=== PATIENT | male | born 1930 | race Caucasian/White ===

== ENCOUNTER 2020-09-08 15:46 | Inpatient (IN) ==
--- NOTE | 2020-09-08 16:23 | Emergency Department Note ---
Impression & Plan SOB (shortness of breath), Fluid overload, Pleural effusion, Pedal edema ED Provider Note NAME: JOSELUIS MISTRY AGE: 89 SEX: M : 1930 ARRIVES VIA: Walk-In INFORMANT: [Patient][daughter] ED PROVIDER(S): [Sravan Young MD] CHIEF COMPLAINT: Short of breath HISTORY OF PRESENT ILLNESS: The patient is an 89-year-old male who presents to the ER with 2 weeks of incr easing shortness of breath, he has also noticed increasing edema. About a week ago. His doctor started him on a diuretic and some potassium. This has not helped. His weight has increased. His work of breathing has increased especially with even the smallest amount of exertion. He has had increasing edema of his legs, his scrotum and now his neck and face. The patient saw his doctors office again today, he was referred to the ED. Patient has a history of A. fib and he is on digoxin and Coumadin. He has never had a diagnosis of coronary disease. He has no lung disease, he states he has never had heart failure. In addition to the dyspnea on exertion, the patient cannot lie flat to sleep. REVIEW OF SYSTEMS: See HPI for pertinent positives and negatives. A total of ten systems were reviewed and were otherwise negative. PMHx/PSHx: See Below SOCIAL HISTORY: See Below. PHYSICAL EXAM: GENERAL: Patient is in no acute distress. HEENT: No acute trauma, normocephalic atraumatic, mucous membranes moist, no nasal congestion, no scleral icterus. There is some anterior neck edema noted. NECK: No stridor, no adenopathy, no meningismus, trachea is midline. LUNGS: Diminished breath sounds bilaterally with some occasional crackles at both bases, no obvious wheeze. The patient does seem to speak in shorter sentences but is in no respiratory distress. HEART: No murmurs, somewhat bradycardic rate with an irregular rhythm. ABDOMEN: Soft, nontender, bowel sounds positive, no hernias, no peritonitis. EXTREMITIES: No cyanosis, significant bilateral pedal edema, full range of motion of all the joints without pain or difficulty, no signs for acute trauma. NEUROLOGIC: Oriented x 3, no acute motor or sensory deficits, no focal weakness. SKIN: No rash, no jaundice, no diaphoresis. Groin: He has scrotal and penile edema. No erythema or warmth to suggest infection. DIFFERENTIAL DIAGNOSIS: Reactive airway disease, pneumonia, pneumothorax, COPD, CHF, infection, cardiac ischemia, pulmonary embolism, bronchitis, musculoskeletal, gastrointestinal, as well as other pathologies. EMERGENCY DEPARTMENT COURSE/PROCEDURES: ECG: Indication was shortness of breath. The ECG shows atrial fibrillation with a rate of 61. There are some nonspecific ST changes noted primarily in the inferior and lateral leads. QTC is 601, quite prolonged. There is no ST elevation, no PVCs. Continuous Cardiac Monitoring: An order was placed for continuous cardiac monitoring. The monitor shows a rate of 63 with atrial fibrillation. MEDICAL DECISION MAKING: There is no leukocytosis. A mild anemia was noted. There is a normal platelet count. INR is high at 4.6, he is somewhat over anticoagulated. No renal failure. No significant electrolyte abnormality in need of emergent correction. No worrisome liver enzyme elevation. ECG shows atrial fibrillation, no acute ischemic change. Cardiac enzyme testing x1 is not consistent with acute cardiac injury. BNP is not significantly elevated. Chest film shows bilateral effusions, worse on the left. Digoxin level was therapeutic. Covid testing returned negative. Bilateral lower extremity ultrasound not show any evidence for DVT. Abdominal and pelvis CT did not show any evidence for urinary obstruction, no acute surgical pathology by CT scan. The patient presents with shortness of breath and edema. He was given IV Lasix 40 mg to start his diuresis. The patient is quite fluid overloaded. He has edema of his legs, scrotum, abdominal wall and face/neck. Hospitalization is warranted. I spoke to the patient and case management. I spoke with his daughter. The on- call hospitalist was consulted. Past Med/Surg History Medical History Chronic atrial fibrillation HTN (hypertension) Surgical History No history of previous surgery Family History (Updated 09/08/20 @ 18:46 by Marli Barnes PA-C) Other Family history unknown Social History Smoking Status: Former smoker Second Hand Exposure: No; Do You Dip or Chew Tobacco: No; Tobacco Cessation Education Requested by Patient: No Hx Alcohol Use: No Hx Substance Use: No Preferred Language: Maltese Communication Ability: Impaired Communication Ability Comment: hard of hearing Beliefs That Will Affect Care: None Current Living Situation: Family Current Living Situation Comment: lives with Daughter Marva Feels Safe at Home: Yes Safety Concerns: Feels Safe At This Time Assistive Devices: Cane Allergies Allergies Allergy/AdvReac Type Severity Reaction Status Date / Time amlodipine Allergy Unknown Unknown Verified 09/08/20 20:15 lisinopril AdvReac Mild Cough Verified 09/08/20 20:15 Home Meds Home Medications Medication Instructions Recorded Confirmed amoxicillin-pot clavulanate 1 tab PO Q12 09/08/20 09/08/20 ascorbic acid (vitamin C) [Vitamin 500 mg PO DAILY 09/08/20 09/08/20 C] digoxin 125 mcg PO Q OTHER DAY 09/08/20 09/08/20 digoxin 250 mcg PO Q OTHER DAY 09/08/20 09/08/20 diltiazem HCl 240 mg PO DAILY 09/08/20 09/08/20 furosemide 20 mg PO DAILY 09/08/20 09/08/20 potassium chloride 10 meq PO DAILY 09/08/20 09/08/20 warfarin [Jantoven] 1 mg PO 2XWK 09/08/20 09/08/20 warfarin [Jantoven] 2 mg PO 5XWK 09/08/20 09/08/20 Results & Data (ED) Vital Signs Vital Signs - 24 hr 09/08/20 15:52 09/08/20 16:19 09/08/20 16:22 Temperature 36.4 C L Temperature Source Temporal Artery Scan Pulse Rate 63 55 L 59 L Pulse Rate from SpO2 Sensor 66 59 L Respiratory Rate 18 18 19 Respiratory Effort / Characteristics Non-Labored Respiratory Depth Normal Blood Pressure 132/61 145/68 H Blood Pressure Mean 84 93 Pulse Oximetry 95 94 94 Oxygen Delivery Method Room Air Sepsis Recent Fever Within 48 Hours No Sepsis New/Unexplained Change in Mental Status No Sepsis Action Taken by Nursing No Action Required 09/08/20 16:30 09/08/20 16:33 09/08/20 17:09 Temperature Temperature Source Pulse Rate 63 60 Pulse Rate from SpO2 Sensor 63 57 L Respiratory Rate 17 14 Respiratory Effort / Characteristics Non-Labored Respiratory Depth Blood Pressure 142/85 H Blood Pressure Mean 104 Pulse Oximetry 96 95 Oxygen Delivery Method Sepsis Recent Fever Within 48 Hours Sepsis New/Unexplained Change in Mental Status Sepsis Action Taken by Nursing 09/08/20 17:30 Temperature Temperature Source Pulse Rate 55 L Pulse Rate from SpO2 Sensor 60 Respiratory Rate 14 Respiratory Effort / Characteristics Respiratory Depth Blood Pressure 142/67 H Blood Pressure Mean 92 Pulse Oximetry 95 Oxygen Delivery Method Sepsis Recent Fever Within 48 Hours Sepsis New/Unexplained Change in Mental Status Sepsis Action Taken by Jail Medications Current Medication List: was personally reviewed by me Laboratory Data Attestation: I reviewed the patient's lab results. Result diagrams: 09/08/20 16:24 09/08/20 16:24 Lab Results 09/08/20 09/08/20 09/08/20 Range/Units 16:24 16:24 16:24 WBC 5.73 (4.8-10.8) K/uL RBC 3.30 L (4.7-6.1) M/uL Hgb 10.9 L (14.0-18.0) g/dL Hct 32.5 L (42-52) % MCV 98.5 (80-100) fL MCH 33.0 (25-34) pg MCHC 33.5 (32-36) g/dL RDW Std Deviation 54.4 H (36.4-46.3) fL RDW Coeff of Rylie 15.2 H (11.5-14.5) % Plt Count 215 (130-400) K/uL MPV 9.6 (7.4-10.4) fL Immature Gran % (Auto) 0.2 % Neut % (Auto) 70.5 % Lymph % (Auto) 16.6 % Banner % (Auto) 10.8 % Eos % (Auto) 1.4 % Baso % (Auto) 0.5 % Neut # (Auto) 4.04 (1.4-6.5) K/uL Lymph # (Auto) 0.95 L (1.2-3.4) K/uL Banner # (Auto) 0.62 H (0.11-0.59) K/uL Eos # (Auto) 0.08 (0-0.5) K/uL Baso # (Auto) 0.03 (0-0.2) K/uL Immature Gran # (Auto) 0.01 (0.00-0.02) K/uL PT 41.3 H (9.0-12.0) Seconds INR 4.6 H (0.9-1.1) APTT 43.4 H (21.0-31.0) Seconds PTT Ratio 1.7 Sodium 138 (136-145) mmol/L Potassium 3.9 (3.5-5.1) mmol/L Chloride 108 H (98-107) mmol/L Carbon Dioxide 25 (21-32) mmol/L Anion Gap 5.0 (3-11) BUN 24 H (7-18) mg/dl Creatinine 1.17 (0.6-1.4) mg/dl Est Cr Clr Drug Dosing 43.8 ml/min Est GFR ( Amer) 64.1 Est GFR (Non-Af Amer) 55.3 BUN/Creatinine Ratio 20.3 H (10-20) Glucose 112 H (70-99) mg/dl Calcium 9.4 (8.5-10.1) mg/dl Magnesium 2.1 (1.8-2.4) mg/dl Total Bilirubin 0.3 (0.2-1) mg/dl AST 21 (15-37) U/L ALT 20 (12-78) U/L Alkaline Phosphatase 88 (45-117) U/L Troponin I < 0.015 (0-0.045) ng/ml NT-Pro-B Natriuret Pep 587 (0-1800) pg/ml Total Protein 8.4 H (6.4-8.2) gm/dl Albumin 3.0 L (3.4-5.0) gm/dl Globulin 5.4 H (2.5-4.0) gm/dl Albumin/Globulin Ratio 0.6 L (0.9-2) Digoxin (0.8-2.0) ng/ml COVID-19 Eval Order SARS-CoV-2, RNA, NAAT (NEGATIVE) 09/08/20 09/08/20 09/08/20 Range/Units 16:24 17:29 17:29 WBC (4.8-10.8) K/uL RBC (4.7-6.1) M/uL Hgb (14.0-18.0) g/dL Hct (42-52) % MCV (80-100) fL MCH (25-34) pg MCHC (32-36) g/dL RDW Std Deviation (36.4-46.3) fL RDW Coeff of Rylie (11.5-14.5) % Plt Count (130-400) K/uL MPV (7.4-10.4) fL Immature Gran % (Auto) % Neut % (Auto) % Lymph % (Auto) % Banner % (Auto) % Eos % (Auto) % Baso % (Auto) % Neut # (Auto) (1.4-6.5) K/uL Lymph # (Auto) (1.2-3.4) K/uL Banner # (Auto) (0.11-0.59) K/uL Eos # (Auto) (0-0.5) K/uL Baso # (Auto) (0-0.2) K/uL Immature Gran # (Auto) (0.00-0.02) K/uL PT (9.0-12.0) Seconds INR (0.9-1.1) APTT (21.0-31.0) Seconds PTT Ratio Sodium (136-145) mmol/L Potassium (3.5-5.1) mmol/L Chloride (98-107) mmol/L Carbon Dioxide (21-32) mmol/L Anion Gap (3-11) BUN (7-18) mg/dl Creatinine (0.6-1.4) mg/dl Est Cr Clr Drug Dosing ml/min Est GFR ( Amer) Est GFR (Non-Af Amer) BUN/Creatinine Ratio (10-20) Glucose (70-99) mg/dl Calcium (8.5-10.1) mg/dl Magnesium (1.8-2.4) mg/dl Total Bilirubin (0.2-1) mg/dl AST (15-37) U/L ALT (12-78) U/L Alkaline Phosphatase (45-117) U/L Troponin I (0-0.045) ng/ml NT-Pro-B Natriuret Pep (0-1800) pg/ml Total Protein (6.4-8.2) gm/dl Albumin (3.4-5.0) gm/dl Globulin (2.5-4.0) gm/dl Albumin/Globulin Ratio (0.9-2) Digoxin 1.4 (0.8-2.0) ng/ml COVID-19 Eval [facility] SARS-CoV-2, RNA, NAAT NEGATIVE (NEGATIVE) Administered Medications Amoxicillin/Clavulanate Potassium (Amoxicillin/Clavulanate 875 Mg Tab) 1 tab PO BIDM [facility] Stop: 09/11/20 20:59 Last Admin: 09/08/20 21:06 Dose: 1 tab Documented by: [id number] Furosemide 40 mg/ Syringe 4 mls @ 4 mls/min IV BID PIA Stop: 10/08/20 20:59 Last Admin: 09/08/20 21:06 Dose: 4 mls/min Documented by: [id number] Discontinued Medications Furosemide (Furosemide 40 Mg/4 Ml Vial) 40 mg IV NOW STA Stop: 09/08/20 17:18 Last Admin: 09/08/20 17:29 Dose: 40 mg Documented by: [id number] Imaging Data Radiologist's Impression: XR chest 1V portable CLINICAL HISTORY: Shortness of breath COMPARISON STUDY: No previous studies for comparison. FINDINGS: The heart is enlarged. There is a small left pleural effusion with associated left lower lobe atelectasis/consolidation. A trace right pleural effusion is also suspected. There is elevation of the interstitium, likely secondary to mild pulmonary vascular congestion although interstitial infectious/inflammatory process could appear similar[ IMPRESSION: 1. Cardiomegaly with elevation of interstitium. While likely secondary to mild pulmonary vascular congestion, an interstitial infectious/inflammatory processes could appear similar 2. Bilateral pleural effusions left greater than right with associated left basilar atelectasis/consolidation US venous doppler LE BI CLINICAL HISTORY: edema COMPARISON STUDY: No previous studies for comparison. FINDINGS: Real-time and color flow Doppler imaging were performed. Flow was seen within the femoral, popliteal and calf veins with no intraluminal thrombus demonstrated. The saphenous vein is patent. Note was made of soft tissue edema bilaterally. IMPRESSION: No evidence of lower extremity DVT. CT SCAN OF THE ABDOMEN AND PELVIS WITHOUT CONTRAST CLINICAL HISTORY: Suspected urinary obstruction COMPARISON STUDY: No previous studies for comparison. TECHNIQUE: CT scan of the abdomen and pelvis was performed from the lung bases to the proximal femurs. Images are reviewed in the axial, sagittal, and coronal planes. IV contrast was not administered for this examination. A dose lowering technique was utilized adhering to the principles of ALARA. CT DOSE: 652.86 mGy.cm FINDINGS: Lower chest: The heart is enlarged. There is a moderate left pleural effusion with left lower lobe atelectasis/consolidation. There is a small loculated right pleural effusion. Liver: The unenhanced liver is normal in size, contour, and attenuation. There is no intrahepatic biliary ductal dilatation. Gallbladder: Unremarkable. Spleen: Normal in size and attenuation. Pancreas: Unremarkable. Adrenal glands: Unremarkable. Kidneys: There are bilateral parapelvic cyst versus minimal dilatation of the renal collecting systems. There is no significant ureteral dilatation. No ure teral or bladder calculi are visualized. No renal calculi are visualized. Bowel: There are no transition zones indicate bowel obstruction. There is no evidence of acute diverticulitis. The appendix appears normal. There is a mild to moderate fecal colonic load. Peritoneum: There is no intraperitoneal free air or abdominal ascites. There is mild diffuse mesenteric edema. Vasculature: There is mild ectasia of the infrarenal abdominal aorta which measures 28 mm. Adenopathy: None. Pelvic viscera: There is mild prostatomegaly. Skeletal structures: No destructive osseous lesions are seen. There is mild diffuse body wall edema IMPRESSION: 1. Motion compromised study 2. Moderate left pleural effusion. Trace right pleural effusion 3. Left lower lobe atelectasis/consolidation 4. No evidence of bowel obstruction. No evidence of free air 5. Normal appendix. No evidence of acute diverticulitis 6. No renal, ureteral, or bladder calculi identified 7. Mild fullness of the renal collecting systems versus parapelvic cysts 8. Mild diffuse body wall edema 9. Mild mesenteric edema, likely secondary to mild anasarca Discharge Plan Visit Data Chief Complaint: Cardiac Assessment Stated Complaint: HEART FAILURE ED Provider: Sravan Young Discharge Problem: SOB (shortness of breath), Fluid overload, Pleural effusion, Pedal edema Patient Disposition: Admitted As Inpatient Condition: Fair Discharge Instructions Interventions: ED Discharge Assessment Last Done: 09/08/20 18:54 Discharge Problem: Fluid overload Qualifiers: Hypervolemia type: unspecified Qualified Code(s): E87.70 - Fluid overload, unspecified
[2020-09-08 16:41] LABS: Basophils # (auto) 0.03 K/uL (0-0.2); Basophils % (auto) 0.5 %; Eosinophils # (auto) 0.08 K/uL (0-0.5); Eosinophils % (auto) 1.4 %; Hematocrit (blood only) 32.5 % (42-52); Hemoglobin 10.9 g/dL (14.0-18.0); Immature Granulocytes # (auto) 0.01 K/uL (0.00-0.02); Immature Granulocytes % (auto) 0.2 %; Lymphocytes # (auto) 0.95 K/uL (1.2-3.4); Lymphocytes % (auto) 16.6 %; Mean Corpuscular Hgb Conc 33.5 g/dL (32-36); Mean Corpuscular Volume 98.5 fL (80-100); Mean Platelet Volume 9.6 fL (7.4-10.4); Monocytes # (auto) 0.62 K/uL (0.11-0.59); Monocytes % (auto) 10.8 %; Neutrophils # (auto) 4.04 K/uL (1.4-6.5); Neutrophils % (auto) 70.5 %; Platelet Count 215 K/uL (130-400); RDW Coefficient of Variation 15.2 % (11.5-14.5); RDW Standard Deviation 54.4 fL (36.4-46.3); White Blood Count 5.73 K/uL (4.8-10.8)
--- NOTE | 2020-09-08 16:41 | Electrocardiogram Report ---
Test Reason : Blood Pressure : / mmHG Vent. Rate : 061 BPM Atrial Rate : 091 BPM P-R Int : 000 ms QRS Dur : 088 ms QT Int : 598 ms P-R-T Axes : 000 045 040 degrees QTc Int : 601 ms Atrial fibrillation Low voltage QRS Nonspecific T wave abnormality Abnormal ECG No previous ECGs available Confirmed by Estevan Jeronimo ([id number]) on 09/08/2020 4:40:30 PM Referred By: Confirmed By:Estevan Jeronimo
--- NOTE | 2020-09-08 16:48 | XRay Report ---
XR chest 1V portable CLINICAL HISTORY: Shortness of breath COMPARISON STUDY: No previous studies for comparison. FINDINGS: The heart is enlarged. There is a small left pleural effusion with associated left lower lo be atelectasis/consolidation. A trace right pleural effusion is also suspected. There is elevation of the interstitium, likely secondary to mild pulmonary vascular congestion although interstitial infec tious/inflammatory process could appear similar[ IMPRESSION: 1. Cardiomegaly with elevation of interstitium. While likely secondary to mild pulmonary vascular con gestion, an interstitial infectious/inflammatory processes could appear similar 2. Bilateral pleural effusions left greater than right with associated left basilar atelectasis/conso lidation ACT 112: Negative or not required by law. Electronically signed by: Rylan Toscano M.D. 09/08/2020 4:47 PM
[2020-09-08 17:02] LABS: Alanine Aminotransferase 20 U/L (12-78); BUN Creatinine Ratio 20.3 (10-20); Blood Urea Nitrogen 24 mg/dl (7-18); Calcium 9.4 mg/dl (8.5-10.1); Carbon Dioxide 25 mmol/L (21-32); Chloride 108 mmol/L (98-107); Creatinine Clr Calc Pharmacy 43.8 ml/min; Est GFR (African American) 64.1; Est GFR (Non-African American) 55.3; Glucose 112 mg/dl (70-99); Magnesium 2.1 mg/dl (1.8-2.4); Potassium 3.9 mmol/L (3.5-5.1); Sodium 138 mmol/L (136-145)
[2020-09-08 17:05] LABS: INR 4.6 (0.9-1.1); Partial Thromboplastin Ratio 1.7; Partial Thromboplastin Time 43.4 Seconds (21.0-31.0); Prothrombin Time 41.3 Seconds (9.0-12.0)
[2020-09-08 17:11] LABS: Albumin Globulin Ratio 0.6 (0.9-2); Alkaline Phosphatase 88 U/L (45-117); Aspartate Aminotransferase 21 U/L (15-37); Bilirubin,Total 0.3 mg/dl (0.2-1); Globulin 5.4 gm/dl (2.5-4.0); NT Pro B Type Natriuretic Pept 587 pg/ml (0-1800); Total Protein 8.4 gm/dl (6.4-8.2); Troponin I < 0.015 ng/ml (0-0.045)
--- NOTE | 2020-09-08 17:12 | Ultrasound Report ---
US venous doppler LE BI CLINICAL HISTORY: edema COMPARISON STUDY: No previous studies for comparison. FINDINGS: Real-time and color flow Doppler imaging were performed. Flow was seen within the femoral, popliteal and calf veins with no intraluminal thrombus demonstrated. The saphenous vein is patent. No te was made of soft tissue edema bilaterally. IMPRESSION: No evidence of lower extremity DVT. ACT 112: Negative or not required by law. Electronically signed by: Rylan Toscano M.D. 09/08/2020 5:10 PM
[2020-09-08] MEDS ORDERED: FUROSEMIDE 40 MG/4 ML VIAL IV STA (17:17)
--- NOTE | 2020-09-08 17:48 | History & Physical Report ---
Date of Service September 08, 2020 Assessment & Plan (1) Volume overload: This is an 89yo M with a PMH of chronic atrial fibrillation on 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, HTN and other medical problems listed below who presents with SOB and edema x 2 weeks. Dyspnea on exertion, orthopnea and BLE edema x 2 weeks. Endorsing 23 pound weight gain No known history of CHF but started on Lasix 20mg PO daily on 09/02 CXR today with cardiomegaly with elevation of interstitium and bilateral pleural effusions left greater than right with associated left basilar atelectasis/consolidation ECG with rate controlled atrial fibrillation, BNP 687, initial troponin negative Given 40mg IV Lasix in ED. Will give another 40mg IV this evening and place moore catheter Strict I&Os, daily weights, low sodium diet Echo ordered, routine cardiology consult placed, repeat labs CXR and ECG in AM Possible CAP Was started on Augmentin course on 09/02 for CXR with bibasilar infiltrates vs. pulmonary edema Afebrile, no leukocytosis. No productive cough Procalcitonin pending Continue Augmentin for now with repeat CXR in AM to better assess volume vs opacities (2) Chronic atrial fibrillation: ECG with rate controlled A Fib Continue digoxin and diltiazem Holding coumadin while INR supratherapeutic (3) Supratherapeutic INR: INR 4.6 - has been downtrending due to patient mixing up doses at home previously Daughter now managing medications - last took coumadin this morning Hold coumadin for now - monitor INR daily DVT Ppx: coumadin Code status: FULL PCP: [place] Dispo: Admitted to [facility]. Plan to return home once medically stable. Patient seen in collaboration with Dr. Sapp. Please see addendum. History of Present Illness Chief Complaint: SOB, volume overload Primary Care Provider: Prasanth Ag MD This is an 89yo M with a PMH of chronic atrial fibrillation on 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, HTN and other medical problems listed below who presents with SOB and edema x 2 weeks. Was seen in clinic earlier today and sent in by PCP for further evaluation. Did undergo CXR on 09/02/20 which showed bibasilar infiltrates and vascular prominence and was prescribed Augmentin course at that time as well as Lasix 20mg PO daily and potassium supplement. Symptoms have worsened since then and patient is now also experiencing orthopnea with worsening edema up to belly. Also noting some new swelling in neck and face. Endorses 23 pound weight gain over the past 2 months. Denies personal history of known CHF or NE. No recent dietary changes. Denies fever, chills, productive cough, palpitations, nausea, vomiting, abdominal pain, dysuria, diarrhea or constipation. Recently relocated to [facility] and established with [facility]. Previously living in [facility] as part of [facility]. Now living with daughter in [place]. Allergies Allergy/AdvReac Type Severity Reaction Status Date / Time amlodipine Allergy Unknown Unknown Verified 09/08/20 20:15 lisinopril AdvReac Mild Cough Verified 09/08/20 20:15 Home Medications Medication Instructions Recorded Confirmed Type amoxicillin-pot clavulanate 1 tab PO Q12 09/08/20 09/08/20 History ascorbic acid (vitamin C) [Vitamin 500 mg PO DAILY 09/08/20 09/08/20 History C] digoxin 125 mcg PO Q OTHER DAY 09/08/20 09/08/20 History digoxin 250 mcg PO Q OTHER DAY 09/08/20 09/08/20 History diltiazem HCl 240 mg PO DAILY 09/08/20 09/08/20 History furosemide 20 mg PO DAILY 09/08/20 09/08/20 History potassium chloride 10 meq PO DAILY 09/08/20 09/08/20 History warfarin [Jantoven] 1 mg PO 2XWK 09/08/20 09/08/20 History warfarin [Jantoven] 2 mg PO 5XWK 09/08/20 09/08/20 History Past Med/Surg History Medical History Chronic atrial fibrillation HTN (hypertension) Surgical History No history of previous surgery Family History Other Family history unknown Social History Smoking Status: Former smoker Second Hand Exposure: No; Do You Dip or Chew Tobacco: No; Tobacco Cessation Education Requested by Patient: No Hx Alcohol Use: No Hx Substance Use: No Preferred Language: Japanese Communication Ability: Effective Communication Ability Comment: hard of hearing Beliefs That Will Affect Care: None Current Living Situation: Family Current Living Situation Comment: lives with Daughter Marva Feels Safe at Home: Yes Safety Concerns: Feels Safe At This Time Assistive Devices: Walker Review of Systems Review of Systems: At least ten systems reviewed and negative except as noted in the HPI. Physical Exam Physical Exam: General Appearance: WD/WN, vitals as above, NAD, sitting up in bed, pleasant, conversing easily Head: normocephalic, atraumatic Eyes: normal inspection, PERRL, conjunctivae normal, anicteric sclerae ENT: external ear and nose normal, oropharynx normal Neck: normal visual inspection, trachea midline, no thyromegaly Respiratory: increased respiratory effort, lung sounds diminished throughout with scattered rales. No wheeze or rhonchi. No accessory muscle use Cardiovascular: regular rate, rhythm, no murmur appreciated, normal peripheral pulses, 2-3+ BLE edema up to abdomen. Vessels: unable to assess JVD 2/2 habitus Chest: normal inspection of chest Abdomen/GI: normal bowel sounds, distended but nontender, no hepatosplenomegaly Extremities/Musculoskeletal: no cyanosis or clubbing, extremities motor strength 5/5 Neurologic: PERRL, EOMI, accommodation nl, no face palsy, no dysarthria, CN's II-XI intact bilaterally and moves all extremities Psychiatric: A+Ox3, euthymic affect Skin: no rashes, normal color, warm/dry Results & Data Results & Data ([facility]) Vital Signs (Past 12 Hours) Vital Signs Temp Pulse Resp BP Pulse Ox 09/08/20 17:09 60 14 142/85 H 95 09/08/20 16:30 63 17 96 09/08/20 16:22 59 L 19 94 09/08/20 16:19 55 L 18 145/68 H 94 09/08/20 15:52 36.4 C L 63 18 132/61 95 Laboratory Results Short CBC 09/08/20 Range/Units 16:24 WBC 5.73 (4.8-10.8) K/uL Hgb 10.9 L (14.0-18.0) g/dL Hct 32.5 L (42-52) % Plt Count 215 (130-400) K/uL BMP 09/08/20 16:24 Sodium 138 Potassium 3.9 Chloride 108 H Carbon Dioxide 25 BUN 24 H Creatinine 1.17 Glucose 112 H Calcium 9.4 Cardiac Enzymes 09/08/20 Range/Units 16:24 Troponin I < 0.015 (0-0.045) ng/ml Liver Function 09/08/20 Range/Units 16:24 Total Bilirubin 0.3 (0.2-1) mg/dl AST 21 (15-37) U/L ALT 20 (12-78) U/L Alkaline Phosphatase 88 (45-117) U/L Albumin 3.0 L (3.4-5.0) gm/dl Diagnostic Findings CXR: IMPRESSION: 1. Cardiomegaly with elevation of interstitium. While likely secondary to mild pulmonary vascular congestion, an interstitial infectious/inflammatory processes could appear similar 2. Bilateral pleural effusions left greater than right with associated left basilar atelectasis/consolidation Venous doppler BLE: IMPRESSION: No evidence of lower extremity DVT. CT abd/pelvis wo contrast: ECG Rhythm: atrial fibrillation Code Status & VTE Plan VTE Prophylaxis Plan VTE Prophylaxis will be ordered: Yes Supervising Physician Co-Signing Physician Notes Pt seen and examined by me, care coordinated with Marli Barnes PA-C, pls refer to her note above for further detail. Pt is an 89 y/o male w/ hx of Afib on AC, who now presents with significant edema and weight gain, treated as outpt w/ diuretic and Abx however w/ worsening symptoms. Pt does not have known dg. of CHF. He is currently sitting up in bed, in NAD. He is alert and oriented and answering questions appropriately. Pt's daughter present at the bedside in the ED. Pt is not using supplemental O2 and is able to speak in full sentences. Heart sound irregular, lung sounds w/crackles and diminished at at bases. Abdomen soft, obese, nontender, + bowel sounds. +LE edema. Pt is able to move extremities w/o difficulty. Labs and images reviewed. Pt received IV lasix in the ED, will continue. Echo and cardiology consult in the morning. Repeat CXR in the morning as well. Tele. I/Os, daily weight, low sodium diet. For now continue Augmentin, re-assess after repeat CXR. Parish Sapp MD
--- NOTE | 2020-09-08 17:53 | CT Scan Report ---
CT SCAN OF THE ABDOMEN AND PELVIS WITHOUT CONTRAST CLINICAL HISTORY: Suspected urinary obstruction COMPARISON STUDY: No previous studies for comparison. TECHNIQUE: CT scan of the abdomen and pelvis was performed from the lung bases to the proximal femurs . Images are reviewed in the axial, sagittal, and coronal planes. IV contrast was not administered fo r this examination. A dose lowering technique was utilized adhering to the principles of ALARA. CT DOSE: 652.86 mGy.cm FINDINGS: Lower chest: The heart is enlarged. There is a moderate left pleural effusion with left lower lobe at electasis/consolidation. There is a small loculated right pleural effusion. Liver: The unenhanced liver is normal in size, contour, and attenuation. There is no intrahepatic juan carlos iary ductal dilatation. Gallbladder: Unremarkable. Spleen: Normal in size and attenuation. Pancreas: Unremarkable. Adrenal glands: Unremarkable. Kidneys: There are bilateral parapelvic cyst versus minimal dilatation of the renal collecting system s. There is no significant ureteral dilatation. No ureteral or bladder calculi are visualized. No mandy al calculi are visualized. Bowel: There are no transition zones indicate bowel obstruction. There is no evidence of acute divert iculitis. The appendix appears normal. There is a mild to moderate fecal colonic load. Peritoneum: There is no intraperitoneal free air or abdominal ascites. There is mild diffuse mesenter ic edema. Vasculature: There is mild ectasia of the infrarenal abdominal aorta which measures 28 mm. Adenopathy: None. Pelvic viscera: There is mild prostatomegaly. Skeletal structures: No destructive osseous lesions are seen. There is mild diffuse body wall edema IMPRESSION: 1. Motion compromised study 2. Moderate left pleural effusion. Trace right pleural effusion 3. Left lower lobe atelectasis/consolidation 4. No evidence of bowel obstruction. No evidence of free air 5. Normal appendix. No evidence of acute diverticulitis 6. No renal, ureteral, or bladder calculi identified 7. Mild fullness of the renal collecting systems versus parapelvic cysts 8. Mild diffuse body wall edema 9. Mild mesenteric edema, likely secondary to mild anasarca ACT 112: Negative or not required by law. Electronically signed by: Rylan Toscano M.D. 09/08/2020 5:51 PM
[2020-09-08] MEDS ORDERED: ACETAMINOPHEN 325 MG TAB PO PRN (20:02)
[2020-09-08] MEDS ORDERED: POLYETHYLENE (MIRALAX) 17 GM PACK PO PRN (20:02)
[2020-09-08] MEDS ORDERED: ONDANSETRON INJ 2 MG/ML 2 ML VIAL IV PRN (20:02)
[2020-09-08 20:21] LABS: Appearance Urine Clear (Clear); Bilirubin Urine Negative (Negative); Blood Urine Negative (Negative); Color Urine Yellow; Glucose Urine UA Negative (Negative); Ketones Urine Negative (Negative); Leukocyte Esterase Urine Negative (Negative); Nitrite Urine Negative (Negative); Protein Urine Negative (Negative); Specific Gravity Urine 1.011 (1.000-1.030); Urobilinogen Urine Negative (Negative)
[2020-09-08] MEDS ORDERED: FUROSEMIDE 40 MG/4 ML VIAL IV SCH (21:00)
[2020-09-08] MEDS: FUROSEMIDE 40 MG in SYRINGE 0 ML IV SCH (21:06)
[2020-09-08] MEDS: AMOXICILLIN/CLAVULANATE 875 MG TAB PO SCH (21:06)
[2020-09-09 06:52] LABS: Hematocrit (blood only) 31.9 % (42-52); Hemoglobin 10.6 g/dL (14.0-18.0); Mean Corpuscular Hemoglobin 32.2 pg (25-34); Mean Corpuscular Hgb Conc 33.2 g/dL (32-36); Mean Platelet Volume 9.5 fL (7.4-10.4); Platelet Count 218 K/uL (130-400); RDW Coefficient of Variation 15.2 % (11.5-14.5); RDW Standard Deviation 54.1 fL (36.4-46.3); Red Blood Count 3.29 M/uL (4.7-6.1); White Blood Count 5.88 K/uL (4.8-10.8)
[2020-09-09 07:09] LABS: INR 4.5 (0.9-1.1); Prothrombin Time 40.3 Seconds (9.0-12.0)
[2020-09-09 07:30] LABS: BUN Creatinine Ratio 18.9 (10-20); Calcium 9.2 mg/dl (8.5-10.1); Creatinine Clr Calc Pharmacy 45.2 ml/min; Est GFR (African American) 68.3; Potassium 3.7 mmol/L (3.5-5.1)
[2020-09-09] MEDS: ASCORBIC ACID 500 MG TAB PO SCH (07:47)
[2020-09-09] MEDS: AMOXICILLIN/CLAVULANATE 875 MG TAB PO SCH ×2 (07:47→17:17)
[2020-09-09] MEDS: FUROSEMIDE 40 MG in SYRINGE 0 ML IV SCH ×2 (07:47→21:10)
[2020-09-09] MEDS: dilTIAZem HCL 240 MG CAPCR PO SCH (07:48)
[2020-09-09] MEDS: POTASSIUM CHLORIDE 10 MEQ TABCR PO SCH (07:48)
--- NOTE | 2020-09-09 09:12 | XRay Report ---
XR chest 1V portable HISTORY: 89 years-old Male repeat to assess volume status acute shortness of breath COMPARISON: CT abdomen and pelvis and chest radiograph 09/08/2020 TECHNIQUE: Portable AP view of the chest FINDINGS: Cardiac silhouette is enlarged. Pulmonary vascular congestion with unchanged reticular opacities. No pneumothorax. Trace right with small to moderate left pleural effusion. Left pleural effusion has sli ghtly decreased in size. 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 Degenerative changes of the shoulder s and spine. IMPRESSION: 1. Cardiomegaly with unchanged pulmonary edema. 2. Trace right with small to moderate left pleural effusions. The left pleural effusion appears to shay ve mildly decreased in size. 3. Persistent left lung base consolidation suggestive of atelectasis versus pneumonia. ACT 112: Negative or not required by law. The above report was generated using voice recognition software. It may contain grammatical, syntax o r spelling errors. Electronically signed by: Daljit Bolden M.D. 09/09/2020 9:11 AM
--- NOTE | 2020-09-09 13:56 | Cardiology Consultation ---
Date of Consultation September 09, 2020 Assessment & Plan (1) Heart failure, diastolic, with acute decompensation: Patient is an 89-year-old male who on discussion and review of records carries a history of longstanding persistent atrial fibrillation and hypertension. No prior history of ischemic heart disease or congestive heart failure. 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 Large left pleural effusion noted on chest x- ray. Plan: Continue IV diuretics. Maintain telemetry. We will discontinue diltiazem and digoxin for time being digoxin level 1.4. Likely better management with heart failure indicated beta-todd as course proceeds Hold warfarin in anticipation of possible need for thoracentesis (2) Pleural effusion: (3) Chronic atrial fibrillation: (4) HTN (hypertension): History of Present Illness Reason for Consultation: Congestive heart failure large left pleural effusion Requesting Physician: Dr. Lennon Attending Physician: Minor Lennon MD History of Present Illness Patient is an 89-year-old male's past history on review of records and in discussion with patient is notable for Please note patient's birthdate is 1930 1. Longstanding atrial fibrillation on rate control and 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 2. Hypertension 3. Hyperlipidemia 4. Hypothyroidism by records He presents now noting 2 to 3 weeks worsening shortness of breath and orthopnea and peripheral edema. He was begun on oral furosemide and oral antibiotics as an outpatient with failure to improve. On ER presentation at admission he was found to have signs and symptoms of congestive heart failure peripheral edema and large left pleural effusion. He has begun on IV diuretics with initial response. He denies any chest pains, notes no dizziness or lightheadedness no syncope or near syncope notes no productive cough. Notes no bleeding difficulties . He is chronic anticoagulated with warfarin. Appetite and sleep habits are generally good. Has gained over 20 pounds over the past 2 or 3 months Allergies Allergy/AdvReac Type Severity Reaction Status Date / Time amlodipine Allergy Unknown Unknown Verified 09/08/20 20:15 lisinopril AdvReac Mild Cough Verified 09/08/20 20:15 Home Medications Medication Instructions Recorded Confirmed Type amoxicillin-pot clavulanate 1 tab PO Q12 09/08/20 09/08/20 History ascorbic acid (vitamin C) [Vitamin 500 mg PO DAILY 09/08/20 09/08/20 History C] digoxin 125 mcg PO Q OTHER DAY 09/08/20 09/08/20 History digoxin 250 mcg PO Q OTHER DAY 09/08/20 09/08/20 History diltiazem HCl 240 mg PO DAILY 09/08/20 09/08/20 History furosemide 20 mg PO DAILY 09/08/20 09/08/20 History potassium chloride 10 meq PO DAILY 09/08/20 09/08/20 History warfarin [Jantoven] 1 mg PO 2XWK 09/08/20 09/08/20 History warfarin [Jantoven] 2 mg PO 5XWK 09/08/20 09/08/20 History Patient History Medical History Chronic atrial fibrillation HTN (hypertension) Surgical History No history of previous surgery Family History Other Family history unknown Social History Smoking Status: Former smoker Second Hand Exposure: No; Do You Dip or Chew Tobacco: No; Tobacco Cessation Education Requested by Patient: No Hx Alcohol Use: No Hx Substance Use: No Preferred Language: Nigerian Communication Ability: Impaired Communication Ability Comment: hard of hearing Beliefs That Will Affect Care: None Current Living Situation: Family Current Living Situation Comment: lives with Daughter Marva Feels Safe at Home: Yes Safety Concerns: Feels Safe At This Time Assistive Devices: Cane Review of Systems Review of Systems: All systems reviewed & are unremarkable except as noted in HPI & below Physical Exam Constitutional: WD/WN, vitals as above no acute distress Eyes: PERRL, conjunctivae normal, anicteric sclerae ENMT: external ear and nose normal, oropharynx normal Neck: trachea midline, no thyromegaly Respiratory: Auscultation: + diminished lung sounds (Left base) and + rales Cardiovascular: Rate/Rhythm: + irregularly irregular Heart Sounds: normal S1 and normal S2; no gallop and no murmur Palpation: normal PMI Vessels: + JVD, normal carotid upstroke and radial pulses present; no carotid bruit Extremities: + edema (2-3+) Gastrointestinal (Abdomen): normal bowel sounds, soft, nontender, no hepatosplenomegaly Musculoskeletal: no cyanosis or clubbing, extremities motor strength 5/5 Skin: no rashes, warm and dry Neurologic: PERRL, EOMI, accommodation nl, no face palsy, no dysarthria Psychiatric: A+Ox3, euthymic affect Results & Data ([facility]) Vital Signs (Past 12 Hours) Vital Signs Temp Pulse Resp BP Pulse Ox 09/09/20 11:45 36.5 C 83 20 135/81 93 09/09/20 08:12 36.5 C 70 20 154/80 H 92 09/09/20 04:00 36.3 C L 69 18 133/67 92 Laboratory Results Current Medications Acetaminophen (Acetaminophen 325 Mg Tab) 650 mg PO Q4H PRN PRN Reason: Pain or Fever Stop: 10/08/20 20:01 Amoxicillin/Clavulanate Potassium (Amoxicillin/Clavulanate 875 Mg Tab) 1 tab PO BIDM [facility] Stop: 09/11/20 20:59 Last Admin: 09/09/20 07:47 Dose: 1 tab Documented by: Ascorbic Acid (Ascorbic Acid 500 Mg Tab) 500 mg PO DAILY [facility] Stop: 10/09/20 08:59 Last Admin: 09/09/20 07:47 Dose: 500 mg Documented by: Diltiazem HCl (Diltiazem Hcl 240 Mg Capcr) 240 mg PO DAILY [facility] Stop: 10/09/20 08:59 Last Admin: 09/09/20 07:48 Dose: 240 mg Documented by: Furosemide 40 mg/ Syringe 4 mls @ 4 mls/min IV BID [facility] Stop: 10/08/20 20:59 Last Admin: 09/09/20 07:47 Dose: 4 mls/min Documented by: Ondansetron HCl (Ondansetron Inj 2 Mg/Ml 2 Ml Vial) 4 mg IV Q6H PRN PRN Reason: Nausea Stop: 10/08/20 20:01 Polyethylene Glycol (Polyethylene (Miralax) 17 Gm Pack) 17 gm PO DAILY PRN PRN Reason: Constipation Stop: 10/08/20 20:01 Potassium Chloride (Potassium Chloride 10 Meq Tabcr) 10 meq PO DAILY [facility] Stop: 10/09/20 08:59 Last Admin: 09/09/20 07:48 Dose: 10 meq Documented by:
--- NOTE | 2020-09-09 15:31 | Hospitalist Progress Note ---
Date of Service September 09, 2020 Assessment & Plan (1) Heart failure, diastolic, with acute decompensation: Presented on admission with worsening SOB, orthopnea associated with edema with more than 20 lbs weight gained CXR on admission showed cardiomegaly with elevation of interstitium. Bilateral pleural effusions left greater than right with associated left basilar atelectasis/consolidation ProBNP on admission 587 Received Lasix 40mg IV in the ER Cardiology on board recommended to continue IV lasix 40mg BID Will monitor BMP closely while on IV lasix Echo showed left ventricular is normal in size. Moderate concentric left ventricular hypertrophy. Basal septum is thickening and angulated consistent with sigmoid septum. No regional wall motion abnormality. Ejection fraction 60 to 65%. Moderate to severe mitral regurgitation. Severe tricuspid regurgitation. Clinically improves Continue monitor I/O Possible CAP Was started on Augmentin course on 09/02 for CXR with bibasilar infiltrates vs. pulmonary edema Afebrile, no leukocytosis. No productive cough Will check Procalcitonin Continue Augmentin for now (2) Pleural effusion: CXR showed Trace right with small to moderate left pleural effusions Continue IV lasix Might consider Pulm consult for possible thoracentesis if pleural effusion persist on CXR Coumadin has been on hold (3) Chronic atrial fibrillation: ECG with rate controlled A Fib Rate control on cardizem and digoxin Digoxin discontinues as per cardio and plan to consider beta todd due to heart failure history Continue to hold coumadin while INR supratherapeutic (4) Supratherapeutic INR: INR 4.6 on admission Continue to hold coumadin with INR 4.5 today Continue monitor PT/INR DVT Ppx: Supratherapeutic INR, coumadin on hold Code status: FULL Dispo: Will discharge once medically stable Admission and Anticipated Discharge Date Admission Date: September 08, 2020 Subjective Pt was seen and examined for follow up of SOB Lying in bed with no distress with daughter at bedside Pt said that he feels much better today He said that he has been urinated well He said that his breathing is much better I explained to daughter about the disease process, reviewed lab and CXR with her and answered all her questions Pt denies any chest pain, palpitation, dizziness, fever and SOB Review of Systems Review of Systems: All systems reviewed & are unremarkable except as noted in Subjective Physical Exam Physical Exam: General- No acute distress Head- atraumatic Eyes- PERRL, EOMI, ENT- oropharynx clear Neck- supple, no JVD Lungs- +diminished Heart- irregular rhythm; no murmur Abdomen- normal bowel sounds, soft, nontender Extremities- no calf tenderness, +B/L LE edema Neuro- alert, oriented x 3; PERRL, EOMI; no facial palsy; no dysarthria Skin- warm & dry Results & Data Results & Data ([facility]) Vital Signs (Past 12 Hours) Vital Signs Temp Pulse Resp BP Pulse Ox 09/09/20 11:45 36.5 C 83 20 135/81 93 09/09/20 08:12 36.5 C 70 20 154/80 H 92 09/09/20 04:00 36.3 C L 69 18 133/67 92
[2020-09-09] MEDS ORDERED: DIGOXIN 0.125 MG TAB PO SCH (16:00)
--- NOTE | 2020-09-09 16:17 | Electrocardiogram Report ---
Test Reason : Blood Pressure : / mmHG Vent. Rate : 074 BPM Atrial Rate : 074 BPM P-R Int : 000 ms QRS Dur : 084 ms QT Int : 366 ms P-R-T Axes : 000 059 -87 degrees QTc Int : 406 ms Poor data quality, interpretation may be adversely affected Atrial fibrillation Abnormal ECG When compared with ECG of 08-SEP-2020 15:58, No significant change Confirmed by Estevan Jeronimo ([id number]) on 09/09/2020 4:16:47 PM Referred By: Luisa Harmon Confirmed By:Estevan Jeronimo
[2020-09-10 06:15] LABS: Hematocrit (blood only) 32.3 % (42-52); Hemoglobin 10.6 g/dL (14.0-18.0); Mean Corpuscular Hemoglobin 32.4 pg (25-34); Mean Corpuscular Hgb Conc 32.8 g/dL (32-36); Mean Corpuscular Volume 98.8 fL (80-100); Mean Platelet Volume 9.4 fL (7.4-10.4); Platelet Count 208 K/uL (130-400); RDW Coefficient of Variation 15.5 % (11.5-14.5); RDW Standard Deviation 56.1 fL (36.4-46.3); Red Blood Count 3.27 M/uL (4.7-6.1); White Blood Count 6.77 K/uL (4.8-10.8)
[2020-09-10 06:26] LABS: INR 3.1 (0.9-1.1); Prothrombin Time 28.4 Seconds (9.0-12.0)
[2020-09-10 06:45] LABS: BUN Creatinine Ratio 19.7 (10-20); Calcium 8.8 mg/dl (8.5-10.1); Creatinine Clr Calc Pharmacy 38.7 ml/min; Est GFR (African American) 55.9; Est GFR (Non-African American) 48.3; Potassium 4.1 mmol/L (3.5-5.1)
[2020-09-10 06:57] LABS: Thyroid Stimulating Hormone 7.26 uIu/ml (0.300-4.500)
[2020-09-10 07:09] LABS: T4 Free Thyroxine 1.2 ng/dl (0.8-1.6)
[2020-09-10] MEDS: dilTIAZem HCL 240 MG CAPCR PO SCH (09:57)
[2020-09-10] MEDS: FUROSEMIDE 40 MG in SYRINGE 0 ML IV SCH ×2 (09:57→21:06)
[2020-09-10] MEDS: POTASSIUM CHLORIDE 10 MEQ TABCR PO SCH (09:58)
[2020-09-10] MEDS: AMOXICILLIN/CLAVULANATE 875 MG TAB PO SCH ×2 (09:58→16:44)
[2020-09-10] MEDS: ASCORBIC ACID 500 MG TAB PO SCH (09:58)
--- NOTE | 2020-09-10 11:07 | XRay Report ---
XR chest 1V portable CLINICAL HISTORY: f/u pleural effusion COMPARISON STUDY: 09/09/2020 FINDINGS: The heart is enlarged. There is improving pulmonary edema. There are decreasing bilateral p leural effusions.[There is improving left basilar atelectasis/consolidation. IMPRESSION: Cardiomegaly with improving pulmonary edema. Decreasing small bilateral pleural effusions . ACT 112: Negative or not required by law. Electronically signed by: Rylan Toscano M.D. 09/10/2020 11:06 AM
--- NOTE | 2020-09-10 12:30 | Cardiology Progress Note ---
Date of Service September 10, 2020 Assessment & Plan (1) Heart failure, diastolic, with acute decompensation: Patient is an 89-year-old male who on discussion and review of records carries a history of longstanding persistent atrial fibrillation and hypertension. No prior history of ischemic heart disease or congestive heart failure. 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 Large left pleural effusion noted on chest x- ray. Plan: Continue IV diuretics. Maintain telemetry. We will discontinue diltiazem and digoxin Plan to initiate beta-todd therapy in a.m. as patient has received diltiazem today Hold warfarin in anticipation of possible need for thoracentesis (2) Pleural effusion: (3) Chronic atrial fibrillation: (4) HTN (hypertension): Admission and Anticipated Discharge Date Admission Date: September 08, 2020 Subjective Patient was seen and examined, chart, medications, telemetry reviewed. No complaints this morning continues to have brisk diuresis. Still edematous but clinically improved Telemetry with atrial fibrillation with rare bradycardia Review of Systems Review of Systems: All systems reviewed & are unremarkable except as noted in HPI & below Physical Exam Constitutional: WD/WN, vitals as above no acute distress Eyes: PERRL, conjunctivae normal, anicteric sclerae ENMT: external ear and nose normal, oropharynx normal Neck: trachea midline, no thyromegaly Respiratory: Auscultation: + diminished lung sounds (Left base) and + rales Cardiovascular: Rate/Rhythm: + irregularly irregular Heart Sounds: normal S1 and normal S2; no gallop and no murmur Palpation: normal PMI Vessels: + JVD, normal carotid upstroke and radial pulses present; no carotid bruit Extremities: + edema (2-3+) Gastrointestinal (Abdomen): normal bowel sounds, soft, nontender, no hepatosplenomegaly Musculoskeletal: no cyanosis or clubbing, extremities motor strength 5/5 Skin: no rashes, warm and dry Neurologic: PERRL, EOMI, accommodation nl, no face palsy, no dysarthria Psychiatric: A+Ox3, euthymic affect Results & Data ([facility]) Vital Signs (Past 12 Hours) Vital Signs Temp Pulse Pulse Resp BP Pulse Ox 09/10/20 11:40 36.5 C 65 18 136/70 90 09/10/20 09:00 75 09/10/20 07:28 36.9 C 77 18 159/73 H 96 09/10/20 03:04 36.4 C L 83 18 149/68 H 95 Laboratory Results Laboratory Results - last 24 hr 09/10/20 09/10/20 09/10/20 05:45 05:45 05:45 WBC 6.77 RBC 3.27 L Hgb 10.6 L Hct 32.3 L MCV 98.8 MCH 32.4 MCHC 32.8 RDW Std Deviation 56.1 H RDW Coeff of Rylie 15.5 H Plt Count 208 MPV 9.4 PT 28.4 H INR 3.1 H Sodium 137 Potassium 4.1 Chloride 105 Carbon Dioxide 28 Anion Gap 4.0 BUN 26 H Creatinine 1.31 Est Cr Clr Drug Dosing 38.7 Est GFR ( Amer) 55.9 Est GFR (Non-Af Amer) 48.3 BUN/Creatinine Ratio 19.7 Glucose 86 Calcium 8.8 Procalcitonin TSH 7.260 H Free T4 1.20 09/10/20 05:45 WBC RBC Hgb Hct MCV MCH MCHC RDW Std Deviation RDW Coeff of Rylie Plt Count MPV PT INR Sodium Potassium Chloride Carbon Dioxide Anion Gap BUN Creatinine Est Cr Clr Drug Dosing Est GFR ( Amer) Est GFR (Non-Af Amer) BUN/Creatinine Ratio Glucose Calcium Procalcitonin 0.07 TSH Free T4
[2020-09-10] MEDS ORDERED: DIGOXIN 0.25 MG TAB PO SCH (16:00)
--- NOTE | 2020-09-10 16:38 | Hospitalist Progress Note ---
Date of Service September 10, 2020 Assessment & Plan (1) Heart failure, diastolic, with acute decompensation: Presented on admission with worsening SOB, orthopnea associated with edema with more than 20 lbs weight gained CXR on admission showed cardiomegaly with elevation of interstitium. Bilateral pleural effusions left greater than right with associated left basilar atelectasis/consolidation ProBNP on admission 587 Received Lasix 40mg IV in the ER Cardiology on board recommended to continue IV lasix 40mg BID, then transition possible transition to PO tomorrow Repeat CXR showed cardiomegaly with improving pulmonary edema. Decreasing small bilateral pleural effusions. Continue monitor BMP closely while on IV lasix Echo showed left ventricular is normal in size. Moderate concentric left ventricular hypertrophy. Basal septum is thickening and angulated consistent with sigmoid septum. No regional wall motion abnormality. Ejection fraction 60 to 65%. Moderate to severe mitral regurgitation. Severe tricuspid regurgitation. Clinically improves Continue monitor I/O Possible CAP Was started on Augmentin course on 09/02 for CXR with bibasilar infiltrates vs. pulmonary edema Afebrile, no leukocytosis. No productive cough Procalcitonin WNL Continue Augmentin for now (2) Pleural effusion: Repeat CXR showed decreasing small bilateral pleural effusions. Continue IV lasix Might consider Pulm consult for possible thoracentesis if pleural effusion persist on CXR Coumadin has been on hold for possible thoracentesis (3) Chronic atrial fibrillation: ECG with rate controlled A Fib Rate control Cardizem and Digoxin discontinued Plan to start on beta todd in am Digoxin discontinues as per cardio and plan to consider beta todd due to heart failure history Continue to hold coumadin while INR 3.1 today for possible thoracentesis (4) Supratherapeutic INR: INR 4.6 on admission Continue to hold coumadin with INR 3.1 today Continue monitor PT/INR Will consider to resume coumadin tomorrow if no plan for thoracentesis DVT Ppx: INR 3.1, coumadin on hold Code status: FULL Dispo: Will discharge once medically stable Admission and Anticipated Discharge Date Admission Date: September 08, 2020 Subjective Pt was seen and examined for follow up of CHF management Lying in bed with no distress with daughter at bedside Pt said that he feels much better Denies any chest pain, pain, palpitation, dizziness and SOB Review of Systems Review of Systems: All systems reviewed & are unremarkable except as noted in Subjective Physical Exam Physical Exam: General- No acute distress Head- atraumatic Eyes- PERRL, EOMI, ENT- oropharynx clear Neck- supple, no JVD Lungs- +diminished Heart- irregular rhythm; no murmur Abdomen- normal bowel sounds, soft, nontender Extremities- no calf tenderness, +B/L LE edema Neuro- alert, oriented x 3; PERRL, EOMI; no facial palsy; no dysarthria Skin- warm & dry Results & Data Results & Data ([facility]) Vital Signs (Past 12 Hours) Vital Signs Temp Pulse Pulse Resp BP BP Pulse Ox 09/10/20 15:32 36.6 C 76 18 143/80 H 93 09/10/20 11:40 36.5 C 65 18 136/70 90 09/10/20 09:00 75 09/10/20 07:28 36.9 C 77 18 159/73 H 96
[2020-09-11 06:54] LABS: INR 1.8 (0.9-1.1); Prothrombin Time 17.3 Seconds (9.0-12.0)
[2020-09-11 07:28] LABS: BUN Creatinine Ratio 20.8 (10-20); Calcium 9.4 mg/dl (8.5-10.1); Creatinine Clr Calc Pharmacy 40.5 ml/min; Est GFR (African American) 61.6; Est GFR (Non-African American) 53.1; Potassium 3.6 mmol/L (3.5-5.1)
[2020-09-11] MEDS: FUROSEMIDE 40 MG in SYRINGE 0 ML IV SCH ×2 (08:03→20:33)
[2020-09-11] MEDS: ASCORBIC ACID 500 MG TAB PO SCH (08:03)
[2020-09-11] MEDS: AMOXICILLIN/CLAVULANATE 875 MG TAB PO SCH ×2 (08:03→17:11)
[2020-09-11] MEDS: POTASSIUM CHLORIDE 10 MEQ TABCR PO SCH (08:04)
--- NOTE | 2020-09-11 13:19 | Cardiology Progress Note ---
Date of Service September 11, 2020 Assessment & Plan (1) Heart failure, diastolic, with acute decompensation: Patient is an 89-year-old male who on discussion and review of records carries a history of longstanding persistent atrial fibrillation and hypertension. No prior history of ischemic heart disease or congestive heart failure. 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 Large left pleural effusion noted on chest x- ray. Plan: Continue IV diuretics but hold after p.m. dose today. Maintain telemetry. Begin Toprol-XL 12.5 mg daily beginning today, will not resume digoxin, diltiazem May consider low-dose spironolactone depending on clinical course (2) Pleural effusion: Improving we will resume warfarin at reduced dose (3) Chronic atrial fibrillation: (4) HTN (hypertension): Admission and Anticipated Discharge Date Admission Date: September 08, 2020 Subjective Patient seen and examined, chart, medications, telemetry reviewed. Patient without focal complaint Has manifested ongoing diuresis with improving lower extremity edema. Telemetry with intermittent bradycardia no tachyarrhythmia No fevers or chills. Chest x-ray is demonstrated improving left pleural effusion Review of Systems 2 Review of Systems: All systems reviewed & are unremarkable except as noted in HPI & below Physical Exam Constitutional: WD/WN, vitals as above no acute distress Eyes: PERRL, conjunctivae normal, anicteric sclerae ENMT: external ear and nose normal, oropharynx normal Neck: trachea midline, no thyromegaly Respiratory: Auscultation: + diminished lung sounds (Improved aeration left) Cardiovascular: Rate/Rhythm: + irregularly irregular Heart Sounds: normal S1 and normal S2; no gallop and no murmur Palpation: normal PMI Vessels: + JVD, normal carotid upstroke and radial pulses present; no carotid bruit Extremities: + edema (2+) Gastrointestinal (Abdomen): normal bowel sounds, soft, nontender, no hepatosplenomegaly Musculoskeletal: no cyanosis or clubbing, extremities motor strength 5/5 Skin: no rashes, warm and dry Neurologic: PERRL, EOMI, accommodation nl, no face palsy, no dysarthria Psychiatric: A+Ox3, euthymic affect Results & Data ([facility]) Vital Signs (Past 12 Hours) Vital Signs Temp Pulse Pulse Resp BP Pulse Ox 09/11/20 11:39 37.0 C 83 18 146/73 H 96 09/11/20 07:35 69 09/11/20 07:28 37.3 C 60 18 124/78 94 09/11/20 03:10 37 C 53 L 18 133/72 94 Laboratory Results Laboratory Results - last 24 hr 09/11/20 09/11/20 06:19 06:19 PT 17.3 H INR 1.8 H Sodium 136 Potassium 3.6 Chloride 102 Carbon Dioxide 28 Anion Gap 6.0 BUN 25 H Creatinine 1.21 Est Cr Clr Drug Dosing 40.5 Est GFR ( Amer) 61.6 Est GFR (Non-Af Amer) 53.1 BUN/Creatinine Ratio 20.8 H Glucose 97 Calcium 9.4
[2020-09-11] MEDS: WARFARIN SOD 1 MG TAB PO SCH (15:12)
[2020-09-11] MEDS: METOPROLOL SUCC 25MG EXT REL TAB PO SCH (15:13)
--- NOTE | 2020-09-11 18:38 | Hospitalist Progress Note ---
Date of Service September 11, 2020 Assessment & Plan (1) Heart failure, diastolic, with acute decompensation: Presented on admission with worsening SOB, orthopnea associated with edema with more than 20 lbs weight gained CXR on admission showed cardiomegaly with elevation of interstitium. Bilateral pleural effusions left greater than right with associated left basilar atelectasis/consolidation ProBNP on admission 587 Received Lasix 40mg IV in the ER Cardiology on board recommended to continue IV lasix 40mg BID, then transition possible transition to PO tomorrow Repeat CXR showed cardiomegaly with improving pulmonary edema. Decreasing small bilateral pleural effusions. Continue monitor BMP closely Echo showed left ventricular is normal in size. Moderate concentric left ventricular hypertrophy. Basal septum is thickening and angulated consistent with sigmoid septum. No regional wall motion abnormality. Ejection fraction 60 to 65%. Moderate to severe mitral regurgitation. Severe tricuspid regurgitation. Clinically improves Continue monitor I/O Check BMP in 1 week Will repeat CXR in am Possible CAP Was started on Augmentin course on 09/02 for CXR with bibasilar infiltrates vs. pulmonary edema Afebrile, no leukocytosis. No productive cough Procalcitonin WNL Continue Augmentin for now (2) Pleural effusion: Repeat CXR showed decreasing small bilateral pleural effusions. Will hold PM dose of IV lasix, plan to transition to PO lasix tomorrow Might consider Pulm consult for possible thoracentesis if pleural effusion persist on repeat CXR in am (3) Chronic atrial fibrillation: ECG with rate controlled A Fib Rate control Cardizem and Digoxin discontinued Starting on Metoprolol 12.5 mg PO daily Digoxin discontinues as per cardio and plan to consider beta todd due to heart failure history Coumadin resume today, INR 1.8 (4) Supratherapeutic INR: INR 4.6 on admission Coumadin was on hold due to possible thoracentesis eval Coumadin resumed at 1mg Continue monitor PT/INR DVT Ppx: on coumadin, INR 1.8 Code status: FULL Dispo: Will discharge once medically stable Admission and Anticipated Discharge Date Admission Date: September 08, 2020 Subjective Pt was seen and examined for follow up of diuretic management Sitting in chair with no distress watching TV Pt said that he feels much better He walked around with physical therapy Denies any chest pain, palpitation, dizziness and SOB Review of Systems Review of Systems: All systems reviewed & are unremarkable except as noted in Subjective Physical Exam Physical Exam: General- No acute distress Head- atraumatic Eyes- PERRL, EOMI, ENT- oropharynx clear Neck- supple, no JVD Lungs- +diminished Heart- irregular rhythm; no murmur Abdomen- normal bowel sounds, soft, nontender Extremities- no calf tenderness, +B/L LE edema Neuro- alert, oriented x 3; PERRL, EOMI; no facial palsy; no dysarthria Skin- warm & dry Results & Data Results & Data ([facility]) Vital Signs (Past 12 Hours) Vital Signs Temp Pulse Pulse Resp BP Pulse Ox 09/11/20 15:26 36.9 C 77 20 165/73 H 96 09/11/20 15:10 77 165/73 H 09/11/20 14:21 82 09/11/20 14:04 95 09/11/20 11:39 37.0 C 83 18 146/73 H 96 09/11/20 07:35 69 09/11/20 07:28 37.3 C 60 18 124/78 94
[2020-09-12 07:41] LABS: INR 1.5 (0.9-1.1)
[2020-09-12 08:04] LABS: BUN Creatinine Ratio 24.8 (10-20); Calcium 9.3 mg/dl (8.5-10.1); Creatinine Clr Calc Pharmacy 48.2 ml/min; Est GFR (African American) 76.6; Est GFR (Non-African American) 66.1; Potassium 3.7 mmol/L (3.5-5.1)
[2020-09-12] MEDS: METOPROLOL SUCC 25MG EXT REL TAB PO SCH (09:07)
[2020-09-12] MEDS: ASCORBIC ACID 500 MG TAB PO SCH (09:08)
[2020-09-12] MEDS: POTASSIUM CHLORIDE 10 MEQ TABCR PO SCH (09:08)
--- NOTE | 2020-09-12 09:14 | XRay Report ---
XR chest 1V portable HISTORY: 89 years-old Male f/u acute shortness of breath. COMPARISON: Chest radiograph 09/10/2020 TECHNIQUE: Portable AP view of the chest FINDINGS: Cardiac silhouette is enlarged. Small left greater than right pleural effusions. Persistent bibasilar consolidation. Mild pulmonary vascular congestion. No pneumothorax. Degenerative changes of the shou lders and spine. IMPRESSION: 1. Cardiomegaly with pulmonary vascular congestion. 2. Unchanged left greater than right pleural effusions with left basilar consolidation. ACT 112: Negative or not required by law. The above report was generated using voice recognition software. It may contain grammatical, syntax o r spelling errors. Electronically signed by: Daljit Bolden M.D. 09/12/2020 9:12 AM
--- NOTE | 2020-09-12 10:04 | Cardiology Progress Note ---
Date of Service September 12, 2020 Assessment & Plan (1) Heart failure, diastolic, with acute decompensation: Patient is an 89-year-old male who on discussion and review of records carries a history of longstanding persistent atrial fibrillation and hypertension. No prior history of ischemic heart disease or congestive heart failure. 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 Large left pleural effusion noted on chest x- ray. Plan: Discontinue IV furosemide Begin furosemide 40 mg p.o. twice daily, spironolactone 12.5 mg p.o. daily Increase metoprolol succinate to 25 mg daily NIKO freedman (2) Pleural effusion: Improving we will resume warfarin (3) Chronic atrial fibrillation: (4) HTN (hypertension): Admission and Anticipated Discharge Date Admission Date: September 08, 2020 Subjective Patient was seen and examined, chart, medications, telemetry reviewed. Overall making progress. Has responded to IV diuretics with 9 kg weight loss. Patient able to ambulate yesterday with physical therapy. Still with moderate leg edema but improved. No fevers chills or unexplained infection. Heart rates beginning to trend slightly higher on telemetry off diltiazem and digoxin Physical Exam Constitutional: WD/WN, vitals as above no acute distress Eyes: PERRL, conjunctivae normal, anicteric sclerae ENMT: external ear and nose normal, oropharynx normal Neck: trachea midline, no thyromegaly Respiratory: Auscultation: + diminished lung sounds (Improved aeration left) Cardiovascular: Rate/Rhythm: + irregularly irregular Heart Sounds: normal S1 and normal S2; no gallop and no murmur Palpation: normal PMI Vessels: + JVD, normal carotid upstroke and radial pulses present; no carotid bruit Extremities: + edema (2+) Gastrointestinal (Abdomen): normal bowel sounds, soft, nontender, no hepatosplenomegaly Musculoskeletal: no cyanosis or clubbing, extremities motor strength 5/5 Skin: no rashes, warm and dry Neurologic: PERRL, EOMI, accommodation nl, no face palsy, no dysarthria Psychiatric: A+Ox3, euthymic affect Results & Data ([facility]) Vital Signs (Past 12 Hours) Vital Signs Temp Pulse Pulse Resp BP Pulse Ox 09/12/20 07:33 36.5 C 90 20 153/76 H 96 09/12/20 04:20 36.5 C 94 H 20 147/72 H 93 09/12/20 01:00 80 09/11/20 22:53 37.7 C H 96 H 20 135/76 95 Laboratory Results Laboratory Results - last 24 hr 09/12/20 09/12/20 06:54 06:54 PT 15.0 H INR 1.5 H Sodium 135 L Potassium 3.7 Chloride 102 Carbon Dioxide 28 Anion Gap 6.0 BUN 25 H Creatinine 1.01 Est Cr Clr Drug Dosing 48.2 Est GFR ( Amer) 76.6 Est GFR (Non-Af Amer) 66.1 BUN/Creatinine Ratio 24.8 H Glucose 78 Calcium 9.3 Medications Administered Current Medications Acetaminophen (Acetaminophen 325 Mg Tab) 650 mg PO Q4H PRN PRN Reason: Pain or Fever Stop: 10/08/20 20:01 Ascorbic Acid (Ascorbic Acid 500 Mg Tab) 500 mg PO DAILY [facility] Stop: 10/09/20 08:59 Last Admin: 09/12/20 09:08 Dose: 500 mg Documented by: Furosemide 40 mg/ Syringe 4 mls @ 4 mls/min IV BID [facility] Stop: 10/08/20 20:59 Last Admin: 09/11/20 20:33 Dose: 4 mls/min Documented by: Metoprolol Succinate (Metoprolol Succ 25mg Ext Rel Tab) 12.5 mg PO QAM [facility] Stop: 10/11/20 13:29 Last Admin: 09/12/20 09:07 Dose: 12.5 mg Documented by: Ondansetron HCl (Ondansetron Inj 2 Mg/Ml 2 Ml Vial) 4 mg IV Q6H PRN PRN Reason: Nausea Stop: 10/08/20 20:01 Polyethylene Glycol (Polyethylene (Miralax) 17 Gm Pack) 17 gm PO DAILY PRN PRN Reason: Constipation Stop: 10/08/20 20:01 Potassium Chloride (Potassium Chloride 10 Meq Tabcr) 10 meq PO DAILY [facility] Stop: 10/09/20 08:59 Last Admin: 09/12/20 09:08 Dose: 10 meq Documented by: Warfarin Sodium (Warfarin Sod 1 Mg Tab) 1 mg PO DAILY@1600 [facility] Stop: 10/11/20 15:59 Last Admin: 09/11/20 15:12 Dose: 1 mg Documented by:
[2020-09-12] MEDS ORDERED: METOPROLOL SUCC 25MG EXT REL TAB PO ONE (10:06)
[2020-09-12] MEDS ORDERED: FUROSEMIDE 40 MG TAB PO ONE (10:06)
[2020-09-12] MEDS: SPIRONOLACTONE 12.5 MG TAB PO SCH (11:39)
[2020-09-12] MEDS: WARFARIN SOD 1 MG TAB PO SCH (16:33)
[2020-09-12] MEDS: FUROSEMIDE 40 MG TAB PO SCH (16:34)
--- NOTE | 2020-09-12 16:38 | Hospitalist Progress Note ---
Date of Service September 12, 2020 Assessment & Plan (1) Heart failure, diastolic, with acute decompensation: Presented on admission with worsening SOB, orthopnea associated with edema with more than 20 lbs weight gained CXR on admission showed cardiomegaly with elevation of interstitium. Bilateral pleural effusions left greater than right with associated left basilar atelectasis/consolidation ProBNP on admission 587 Received Lasix 40mg IV in the ER Cardiology on board recommended to continue IV lasix 40mg BID, then transition possible transition to PO tomorrow Repeat CXR showed cardiomegaly with improving pulmonary edema. Decreasing small bilateral pleural effusions. Continue monitor BMP closely Echo showed left ventricular is normal in size. Moderate concentric left ventricular hypertrophy. Basal septum is thickening and angulated consistent with sigmoid septum. No regional wall motion abnormality. Ejection fraction 60 to 65%. Moderate to severe mitral regurgitation. Severe tricuspid regurgitation. Case discussed with cardiology Transition to PO lasix 40mg BID and Spironolactone 12.5 daily CXR showed unchanged left greater than right pleural effusions with left basilar consolidation. Continue monitor I/O Will check BMP in am Possible CAP Was started on Augmentin course on 09/02 for CXR with bibasilar infiltrates vs. pulmonary edema Afebrile, no leukocytosis. No productive cough Procalcitonin WNL Completed the course of Augmentin (2) Pleural effusion: Repeat CXR showed decreasing small bilateral pleural effusions. Will hold PM dose of IV lasix, plan to transition to PO lasix tomorrow Might consider Pulm consult for possible thoracentesis if pleural effusion persist on repeat CXR in am Continue Lasix 40mg PO BID and spironolactone 12.5 mg (3) Chronic atrial fibrillation: ECG with rate controlled A Fib Rate control Cardizem and Digoxin discontinued Metoprolol increased to 25mg Continue coumadin with INR 1.5 today (4) Supratherapeutic INR: INR 4.6 on admission Continue coumadin Continue monitor PT/INR DVT Ppx: on coumadin, INR 1.5 Code status: FULL Dispo: Will discharge once medically stable Admission and Anticipated Discharge Date Admission Date: September 08, 2020 Subjective Pt was seen and examined for follow up lower extremities swelling Sitting in chair with no distress Pt said that he feels ok denies any chest pain, palpitation, dizziness and SOB Physical Exam Physical Exam: General- No acute distress Head- atraumatic Eyes- PERRL, EOMI, ENT- oropharynx clear Neck- supple, no JVD Lungs- +diminished Heart- irregular rhythm; no murmur Abdomen- normal bowel sounds, soft, nontender Extremities- no calf tenderness, +B/L LE edema Neuro- alert, oriented x 3; PERRL, EOMI; no facial palsy; no dysarthria Skin- warm & dry Results & Data Results & Data ([facility]) Vital Signs (Past 12 Hours) Vital Signs Temp Pulse Resp BP BP Pulse Ox 09/12/20 14:41 37.3 C 85 18 136/79 98 09/12/20 11:12 36.9 C 87 18 148/76 H 97 09/12/20 07:33 36.5 C 90 20 153/76 H 96
[2020-09-12] MEDS ORDERED: WARFARIN SOD 1 MG TAB PO STA (17:48)
[2020-09-13 06:09] LABS: INR 1.4 (0.9-1.1); Prothrombin Time 14.1 Seconds (9.0-12.0)
[2020-09-13 06:28] LABS: BUN Creatinine Ratio 25.9 (10-20); Calcium 8.8 mg/dl (8.5-10.1); Creatinine Clr Calc Pharmacy 46.3 ml/min; Est GFR (African American) 73.1; Est GFR (Non-African American) 63.1; Potassium 3.9 mmol/L (3.5-5.1)
[2020-09-13] MEDS: FUROSEMIDE 40 MG TAB PO SCH (07:44)
[2020-09-13] MEDS: ASCORBIC ACID 500 MG TAB PO SCH (07:45)
[2020-09-13] MEDS: SPIRONOLACTONE 12.5 MG TAB PO SCH (07:45)
[2020-09-13] MEDS ORDERED: METOPROLOL SUCC 25MG EXT REL TAB PO SCH (09:00)
--- NOTE | 2020-09-13 12:21 | Hospitalist Progress Note ---
Date of Service September 13, 2020 Assessment & Plan (1) Heart failure, diastolic, with acute decompensation: Presented on admission with worsening SOB, orthopnea associated with edema with more than 20 lbs weight gained CXR on admission showed cardiomegaly with elevation of interstitium. Bilateral pleural effusions left greater than right with associated left basilar atelectasis/consolidation ProBNP on admission 587 Received Lasix 40mg IV in the ER Cardiology on board recommended to continue IV lasix 40mg BID, then transition possible transition to PO tomorrow Repeat CXR showed cardiomegaly with improving pulmonary edema. Decreasing small bilateral pleural effusions. Continue monitor BMP closely Echo showed left ventricular is normal in size. Moderate concentric left ventricular hypertrophy. Basal septum is thickening and angulated consistent with sigmoid septum. No regional wall motion abnormality. Ejection fraction 60 to 65%. Moderate to severe mitral regurgitation. Severe tricuspid regurgitation. Case discussed with cardiology that recommended to: Continue PO lasix 40mg BID and Spironolactone 12.5 daily CXR showed unchanged left greater than right pleural effusions with left basilar consolidation. Check BMP in 1 week to monitor electrolyte and renal function Ok from cardiology standpoint to discharge Follow up with cardiology outpatient Possible CAP Was started on Augmentin course on 09/02 for CXR with bibasilar infiltrates vs. pulmonary edema Afebrile, no leukocytosis. No productive cough Procalcitonin WNL Completed the course of Augmentin (2) Pleural effusion: Repeat CXR showed decreasing small bilateral pleural effusions. Will hold PM dose of IV lasix, plan to transition to PO lasix tomorrow Might consider Pulm consult for possible thoracentesis if pleural effusion persist on repeat CXR in am Continue Lasix 40mg PO BID and spironolactone 12.5 mg on discharge (3) Chronic atrial fibrillation: ECG with rate controlled A Fib Rate control with Metoprolol PO Cardizem and Digoxin discontinued during this admission Continue Metoprolol 25mg on discharge Continue coumadin with INR 1.4 today Follow up with the coag clinic to monitor PT/INR Fall precaution while on coumadin (4) Supratherapeutic INR: INR 4.6 on admission Continue coumadin Continue monitor PT/INR DVT Ppx: on coumadin, INR 1.4 Code status: FULL Dispo: Follow up with your primary care provider within 1 week Follow up with Cardiology in 3 to 4 weeks Admission and Anticipated Discharge Date Admission Date: September 08, 2020 Subjective Pt was seen and examined for follow up lower extremities swelling Sitting in bed with no distress comfortable Pt said that he feels ok I spoke to daughter yesterday and provided with updates and answered all her questions Pt denies any chest pain, palpitation, dizziness and SOB Review of Systems Review of Systems: All systems reviewed & are unremarkable except as noted in Subjective Physical Exam Physical Exam: General- No acute distress Head- atraumatic Eyes- PERRL, EOMI, ENT- oropharynx clear Neck- supple, no JVD Lungs- +diminished Heart- irregular rhythm; no murmur Abdomen- normal bowel sounds, soft, nontender Extremities- no calf tenderness, +B/L LE edema Neuro- alert, oriented x 3; PERRL, EOMI; no facial palsy; no dysarthria Skin- warm & dry Results & Data Results & Data ([facility]) Vital Signs (Past 12 Hours) Vital Signs Temp Pulse Pulse Resp BP Pulse Ox 09/13/20 10:58 37.2 C 85 20 145/73 H 94 09/13/20 08:00 90 09/13/20 07:02 37.2 C 100 H 20 148/73 H 94 09/13/20 03:32 37.2 C 93 H 20 157/79 H 96 09/13/20 01:33 88 09/12/20 23:29 37.1 C 89 20 159/92 H 93
--- NOTE | 2020-09-13 12:27 | Cardiology Progress Note ---
Date of Service September 13, 2020 Assessment & Plan (1) Heart failure, diastolic, with acute decompensation: Patient is an 89-year-old male who on discussion and review of records carries a history of longstanding persistent atrial fibrillation and hypertension. No prior history of ischemic heart disease or congestive heart failure. 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 Large left pleural effusion noted on chest x- ray on admission Plan: Patient has had clinical improvement since admission. Now on oral regimen. Weight down 9 kg We will discharged home on furosemide 40 mg/day, spironolactone 12.5 mg/day with CHF instructions. Patient may warrant increase in furosemide dosing if any signs of fluid retention. As noted digoxin and diltiazem discontinued. Patient begun on metoprolol succinate 25 mg/day Warfarin resumed Discussed above with daughter. Patient will require BMP and PCP visit next week (2) Pleural effusion: (3) Chronic atrial fibrillation: (4) HTN (hypertension): Admission and Anticipated Discharge Date Admission Date: September 08, 2020 Subjective Patient seen and examined, chart, medications, telemetry reviewed. No complaints this morning. No dizziness or lightheadedness. Telemetry atrial fibrillation 60s to 80s. Physical Exam Constitutional: WD/WN, vitals as above no acute distress Eyes: PERRL, conjunctivae normal, anicteric sclerae ENMT: external ear and nose normal, oropharynx normal Neck: trachea midline, no thyromegaly Respiratory: Auscultation: + diminished lung sounds (Improved aeration left) Cardiovascular: Rate/Rhythm: + irregularly irregular Heart Sounds: normal S1 and normal S2; no gallop and no murmur Palpation: normal PMI Vessels: + JVD, normal carotid upstroke and radial pulses present; no carotid bruit Extremities: + edema (2+) Gastrointestinal (Abdomen): normal bowel sounds, soft, nontender, no hepatosplenomegaly Musculoskeletal: no cyanosis or clubbing, extremities motor strength 5/5 Skin: no rashes, warm and dry Neurologic: PERRL, EOMI, accommodation nl, no face palsy, no dysarthria Psychiatric: A+Ox3, euthymic affect Results & Data ([facility]) Vital Signs (Past 12 Hours) Vital Signs Temp Pulse Pulse Resp BP Pulse Ox 09/13/20 10:58 37.2 C 85 20 145/73 H 94 09/13/20 08:00 90 09/13/20 07:02 37.2 C 100 H 20 148/73 H 94 09/13/20 03:32 37.2 C 93 H 20 157/79 H 96 09/13/20 01:33 88 09/12/20 23:29 37.1 C 89 20 159/92 H 93 Laboratory Results Laboratory Results - last 24 hr 09/13/20 09/13/20 05:38 05:38 PT 14.1 H INR 1.4 H Sodium 133 L Potassium 3.9 Chloride 102 Carbon Dioxide 28 Anion Gap 3.0 BUN 27 H Creatinine 1.05 Est Cr Clr Drug Dosing 46.3 Est GFR ( Amer) 73.1 Est GFR (Non-Af Amer) 63.1 BUN/Creatinine Ratio 25.9 H Glucose 89 Calcium 8.8
[2020-09-14] MEDS ORDERED: FUROSEMIDE 40 MG TAB PO SCH (09:00)
--- NOTE | 2020-09-19 | Discharge Summary ---
Date of Service September 13, 2020 Admission HPI Per Admitting Provider This is an 89yo M with a PMH of chronic atrial fibrillation on 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, HTN and other medical problems listed below who presents with SOB and edema x 2 weeks. Was seen in clinic earlier today and sent in by PCP for further evaluation. Did undergo CXR on 09/02/20 which showed bibasilar infiltrates and vascular prominence and was prescribed Augmentin course at that time as well as Lasix 20mg PO daily and potassium supplement. Symptoms have worsened since then and patient is now also experiencing orthopnea with worsening edema up to belly. Also noting some new swelling in neck and face. Endorses 23 pound weight gain over the past 2 months. Denies personal history of known CHF or CA. No recent dietary changes. Denies fever, chills, productive cough, palpitations, nausea, vomiting, abdominal pain, dysuria, diarrhea or constipation. Recently relocated to [facility] and [facility] with [facility]. Previously living in [facility]. Now living with daughter in [place]. Admission Exam Per Admitting Provider General Appearance: WD/WN, vitals as above, NAD, sitting up in bed, pleasant, conversing easily Head: normocephalic, atraumatic Eyes: normal inspection, PERRL, conjunctivae normal, anicteric sclerae ENT: external ear and nose normal, oropharynx normal Neck: normal visual inspection, trachea midline, no thyromegaly Respiratory: increased respiratory effort, lung sounds diminished throughout with scattered rales. No wheeze or rhonchi. No accessory muscle use Cardiovascular: regular rate, rhythm, no murmur appreciated, normal peripheral pulses, 2-3+ BLE edema up to abdomen. Vessels: unable to assess JVD 2/2 habitus Chest: normal inspection of chest Abdomen/GI: normal bowel sounds, distended but nontender, no hepatosplenomegaly Extremities/Musculoskeletal: no cyanosis or clubbing, extremities motor strength 5/5 Neurologic: PERRL, EOMI, accommodation nl, no face palsy, no dysarthria, CN's II-XI intact bilaterally and moves all extremities Psychiatric: A+Ox3, euthymic affect Skin: no rashes, normal color, warm/dry Principal Diagnosis Heart failure, diastolic, with acute decompensation: Pleural effusion: Chronic atrial fibrillation: Supratherapeutic INR: Discharge Exam General- No acute distress Head- atraumatic Eyes- PERRL, EOMI, ENT- oropharynx clear Neck- supple, no JVD Lungs- +diminished Heart- irregular rhythm; no murmur Abdomen- normal bowel sounds, soft, nontender Extremities- no calf tenderness, +B/L LE edema Neuro- alert, oriented x 3; PERRL, EOMI; no facial palsy; no dysarthria Skin- warm & dry Discharge Data Allergies Allergy/AdvReac Type Severity Reaction Status Date / Time amlodipine Allergy Unknown Unknown Verified 09/08/20 20:15 lisinopril AdvReac Mild Cough Verified 09/08/20 20:15 Consultations 09/08/20 17:29 ED Decision to Admit Stat 09/09/20 07:34 Consult Cardiology Routine Ordered Studies 09/08/20 16:17 US venous doppler LE BI Stat 09/08/20 17:17 CT abd pelvis wo con Stat XR chest 1V portable CLINICAL HISTORY: Shortness of breath COMPARISON STUDY: No previous studies for comparison. FINDINGS: The heart is enlarged. There is a small left pleural effusion with associated left lower lobe atelectasis/consolidation. A trace right pleural effusion is also suspected. There is elevation of the interstitium, likely secondary to mild pulmonary vascular congestion although interstitial infectious/inflammatory process could appear similar[ IMPRESSION: 1. Cardiomegaly with elevation of interstitium. While likely secondary to mild pulmonary vascular congestion, an interstitial infectious/inflammatory processes could appear similar 2. Bilateral pleural effusions left greater than right with associated left basilar atelectasis/consolidation ACT 112: Negative or not required by law. Electronically signed by: Rylan Toscano M.D. 09/08/2020 4:47 PM Dictated: 09/08/20 1645Transcribed: 09/08/20 1645 US venous doppler LE BI CLINICAL HISTORY: edema COMPARISON STUDY: No previous studies for comparison. FINDINGS: Real-time and color flow Doppler imaging were performed. Flow was seen within the femoral, popliteal and calf veins with no intraluminal thrombus demonstrated. The saphenous vein is patent. Note was made of soft tissue edema bilaterally. IMPRESSION: No evidence of lower extremity DVT. ACT 112: Negative or not required by law. Electronically signed by: Rylan Toscano M.D. 09/08/2020 5:10 PM Dictated: 03/09/21 1710Transcribed: 09/08/201709 CT SCAN OF THE ABDOMEN AND PELVIS WITHOUT CONTRAST CLINICAL HISTORY: Suspected urinary obstruction COMPARISON STUDY: No previous studies for comparison. TECHNIQUE: CT scan of the abdomen and pelvis was performed from the lung bases to the proximal femurs. Images are reviewed in the axial, sagittal, and coronal planes. IV contrast was not administered for this examination. A dose lowering technique was utilized adhering to the principles of ALARA. CT DOSE: 652.86 mGy.cm FINDINGS: Lower chest: The heart is enlarged. There is a moderate left pleural effusion with left lower lobe atelectasis/consolidation. There is a small loculated right pleural effusion. Liver: The unenhanced liver is normal in size, contour, and attenuation. There is no intrahepatic biliary ductal dilatation. Gallbladder: Unremarkable. Spleen: Normal in size and attenuation. Pancreas: Unremarkable. Adrenal glands: Unremarkable. Kidneys: There are bilateral parapelvic cyst versus minimal dilatation of the renal collecting systems. There is no significant ureteral dilatation. No ureteral or bladder calculi are visualized. No renal calculi are visualized. Bowel: There are no transition zones indicate bowel obstruction. There is no evidence of acute diverticulitis. The appendix appears normal. There is a mild to moderate fecal colonic load. Peritoneum: There is no intraperitoneal free air or abdominal ascites. There is mild diffuse mesenteric edema. Vasculature: There is mild ectasia of the infrarenal abdominal aorta which measures 28 mm. Adenopathy: None. Pelvic viscera: There is mild prostatomegaly. Skeletal structures: No destructive osseous lesions are seen. There is mild diffuse body wall edema IMPRESSION: 1. Motion compromised study 2. Moderate left pleural effusion. Trace right pleural effusion 3. Left lower lobe atelectasis/consolidation 4. No evidence of bowel obstruction. No evidence of free air 5. Normal appendix. No evidence of acute diverticulitis 6. No renal, ureteral, or bladder calculi identified 7. Mild fullness of the renal collecting systems versus parapelvic cysts 8. Mild diffuse body wall edema 9. Mild mesenteric edema, likely secondary to mild anasarca ACT 112: Negative or not required by law. Electronically signed by: Rylan Toscano M.D. 09/08/2020 5:51 PM Dictated: 09/08/201745Transcribed: 09/08/201745 XR chest 1V portable HISTORY: 89 years-old Male repeat to assess volume status acute shortness of breath COMPARISON: CT abdomen and pelvis and chest radiograph 09/08/2020 TECHNIQUE: Portable AP view of the chest FINDINGS: Cardiac silhouette is enlarged. Pulmonary vascular congestion with unchanged reticular opacities. No pneumothorax. Trace right with small to moderate left pleural effusion. Left pleural effusion has slightly decreased in size. Pmo Lead left lung base consolidation. Degenerative changes of the shoulders and spine. IMPRESSION: 1. Cardiomegaly with unchanged pulmonary edema. 2. Trace right with small to moderate left pleural effusions. The left pleural effusion appears to have mildly decreased in size. 3. Persistent left lung base consolidation suggestive of atelectasis versus pneumonia. ACT 112: Negative or not required by law. The above report was generated using voice recognition software. It may contain grammatical, syntax or spelling errors. Electronically signed by: Daljit Bolden M.D. 09/09/2020 9:11 AM Dictated: 09/09/20 0909Transcribed: 09/09/20 0909 XR chest 1V portable CLINICAL HISTORY: f/u pleural effusion COMPARISON STUDY: 09/09/2020 FINDINGS: The heart is enlarged. There is improving pulmonary edema. There are decreasing bilateral pleural effusions.[There is improving left basilar atelectasis/consolidation. IMPRESSION: Cardiomegaly with improving pulmonary edema. Decreasing small bilateral pleural effusions. ACT 112: Negative or not required by law. Electronically signed by: Rylan Toscano M.D. 09/10/2020 11:06 AM Dictated: 09/10/20 1105Transcribed: 09/10/20 1105 XR chest 1V portable HISTORY: 89 years-old Male f/u acute shortness of breath. COMPARISON: Chest radiograph 09/10/2020 TECHNIQUE: Portable AP view of the chest FINDINGS: Cardiac silhouette is enlarged. Small left greater than right pleural effusions. Persistent bibasilar consolidation. Mild pulmonary vascular congestion. No pneumothorax. Degenerative changes of the shoulders and spine. IMPRESSION: 1. Cardiomegaly with pulmonary vascular congestion. 2. Unchanged left greater than right pleural effusions with left basilar consolidation. ACT 112: Negative or not required by law. The above report was generated using voice recognition software. It may contain grammatical, syntax or spelling errors. Electronically signed by: Daljit Bolden M.D. 09/12/2020 9:12 AM Dictated: 09/12/20910Transcribed: 09/12/20910 XR chest 1V portable HISTORY: 89 years-old Male f/u acute shortness of breath. COMPARISON: Chest radiograph 09/10/2020 TECHNIQUE: Portable AP view of the chest FINDINGS: Cardiac silhouette is enlarged. Small left greater than right pleural effusions. Persistent bibasilar consolidation. Mild pulmonary vascular congestion. No pneumothorax. Degenerative changes of the shoulders and spine. IMPRESSION: 1. Cardiomegaly with pulmonary vascular congestion. 2. Unchanged left greater than right pleural effusions with left basilar consolidation. ACT 112: Negative or not required by law. The above report was generated using voice recognition software. It may contain grammatical, syntax or spelling errors. Electronically signed by: Daljit Bolden M.D. 09/12/2020 9:12 AM Dictated: 09/12/20910Transcribed: 09/12/20910 Hospital Course (1) Volume overload: This is an 89yo M with a PMH of chronic atrial fibrillation on 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, HTN and other medical problems listed below who presents with SOB and edema x 2 weeks. Dyspnea on exertion, orthopnea and BLE edema x 2 weeks. Endorsing 23 pound weight gain No known history of CHF but started on Lasix 20mg PO daily on 09/02 CXR today with cardiomegaly with elevation of interstitium and bilateral pleural effusions left greater than right with associated left basilar atelectasis/consolidation ECG with rate controlled atrial fibrillation, BNP 687, initial troponin negative Given 40mg IV Lasix in ED. Will give another 40mg IV this evening and place moore catheter Strict I&Os, daily weights, low sodium diet Echo ordered, routine cardiology consult placed, repeat labs CXR and ECG in AM Possible CAP Was started on Augmentin course on 09/02 for CXR with bibasilar infiltrates vs. pulmonary edema Afebrile, no leukocytosis. No productive cough Procalcitonin pending Continue Augmentin for now with repeat CXR in AM to better assess volume vs opacities (2) Chronic atrial fibrillation: ECG with rate controlled A Fib Rate control with Metoprolol PO Cardizem and Digoxin discontinued during this admission Continue Metoprolol 25mg on discharge Continue coumadin with INR 1.4 today Follow up with the coag clinic to monitor PT/INR Fall precaution while on coumadin (3) Supratherapeutic INR: INR 4.6 on admission Continue coumadin Continue monitor PT/INR DVT Ppx: on coumadin, INR 1.4 Code status: FULL Dispo: Follow up with your primary care provider within 1 week Follow up with Cardiology in 3 to 4 weeks Total Time Total Time Spent Total Time Spent (In Minutes): 35 minutes Total Time Includes: Examination of the Patient, Discharge Planning, Medication Reconciliation, Communication With Other Providers and Other Discharge Plan Discharge Items Patient Disposition: Home - Home Health Services Reason For Visit: Volume Overload Discharge Diagnosis: Heart failure, diastolic, with acute decompensation: Pleural effusion: Chronic atrial fibrillation: Supratherapeutic INR: Condition on Discharge: Fair Activity: Resume your previous activity Non-emergency contact: Primary Care Provider and Manager Life Call non-emergency contact if: you have any medication questions Follow-up/Referrals: Prasanth Ag MD [Primary Care Provider] - Diet: Heart Healthy Addtl Attending Provider Instructions: Follow up with your primary care provider Dr. Ag on 09/17 @ 10:20 AM Follow up with cardiology in 3 to 4 weeks (Office will call you for the appointment ) Follow up with the coumadin clinic to monitor PT/INR (Take coumadin 2mg today ) Since you are taking Lasix and Spironolactone, please check BMP in 1 week to monitor your electrolytes and kidney function Follow up a low salt diet Continue monitor your weight and if you develop any symptoms or sign of fluid overload, you might take an extra tablet of Lasix Continue physical therapy with home health services Fall precaution Cardizem and digoxin were discontinued during this admission New medications: Metoprolol 25mg daily for the atrial fibrillation Lasix 40mg daily (water pill for the heart failure) Spironolactone 12.5 mg daily (water pill for the heart failure) CHF Discharge Instructions Call your Primary Care doctor if any of the following symptoms or problems start or get worse: Shortness of breath or difficulty breathing Wake up at night short of breath Chest pain Cough Swelling of your hands, feet, or legs More fatigued or tired with your normal activity Palpitations - sudden fast heart beats WEIGHT Weigh yourself every morning after using the bathroom. Use the same scale. Wear the same amount of clothing. Write your weight down on a chart. Call your Primary Care doctor if you gain more than 2-3 pounds in 24 hrs MEDICATIONS Use this discharge instruction sheet for medication instructions. Take your medications at the time your doctor ordered. Do not skip a dose of your medicines. If you miss a dose of medicine, take it as soon as possible, but DO NOT DOUBLE A DOSE. Read your medicine information when you get home. Know all of the side effects of your medicine. If in doubt, ask your pharmacist Call your Primary Care doctor's office if you have any side effects. Be sure all of your doctors know what medicine and herbs you take (including cold, flu, and herbal medicine). Take the following with you to your follow-up doctor appointments: Weight Chart Medication List List of questions Do not drink excessive alcohol, beer or wine. Pending Studies at Discharge: No Stand-Alone Forms: My [email or web address], Smoking Cessation Medications and DC Order Prescriptions: New metoprolol succinate 25 mg Tablet Extended Release 24 Hr 25 mg PO QAM 30 Days Qty: 30 RF: 0 spironolactone 25 mg Tablet 12.5 mg PO DAILY 30 Days Qty: 15 RF: 0 furosemide 40 mg Tablet 40 mg PO DAILY Qty: 30 RF: 0 Continued ascorbic acid (vitamin C) [Vitamin C] 500 mg Tablet 500 mg PO DAILY RF: 0 Changed warfarin [Jantoven] 2 mg Tablet 2 mg PO 4XWK Qty: 0 RF: 0 warfarin [Jantoven] 1 mg Tablet 1 mg PO 3XWK Qty: 0 RF: 0 Discontinued potassium chloride 10 mEq capsule, extended release 10 meq PO DAILY RF: 0 diltiazem HCl 240 mg Capsule,Extended Release 24 Hr 240 mg PO DAILY RF: 0 digoxin 250 mcg (0.25 mg) Tablet 250 mcg PO Q OTHER DAY RF: 0 digoxin 125 mcg (0.125 mg) Tablet 125 mcg PO Q OTHER DAY RF: 0 furosemide 20 mg tablet 20 mg PO DAILY RF: 0 amoxicillin-pot clavulanate 875-125 mg tablet 1 tab PO Q12 RF: 0 Discharge Orders: Discharge Order (Routine); Ordered 09/13/20 Ordered By: Minor Lennon Admission Data Admit Date/Time: 09/08/20 17:40 Attending Provider: Saji,Gaxiola Admit Provider: Karyna Cunha Primary Care Provider: Prasanth Ag Other Providers: Karyna Cunha ; Imer Beaulieu ; Kirill Sapp ; [facility],Home Healthcare ; [facility],Home Health Other Interventions: Discharge Summary Assessment (RN) Last Done: 09/13/20 13:22
--- NOTE | 2020-09-21 07:56 | Coding Query ---
CODING QUERY To promote full compliance with coding requirements relating to patient care, provider participation is requested in all cases of manager social work uncertainty. Please assist us with the question(s) below: Coding Question(s): Patient admitted with acute diastolic heart failure/ pleural effusions. Discharge Summary also states Pneumonia, patient started Augmenton on 09/02 , several days before admission. Please document below the phrase that describes the Pneumonia -( pertaining to Present On Admission Status ).Thanks for your help! Kurt Wolfe SKI [employer] [facility] Physician's Response(s): Pneumonia was Present On Admission Pneumonia resolved Prior to Admission Cannot Clinically Correlate if Pneumonia was Present on Admission or Resolved prior to Admission x__ Other/ Please document: ___unable to determine due to pulmonary edema/pleural effusion on imaging Principal Diagnosis: "that condition established after study, to be chiefly responsible for occasioning the admission of the patient to the hospital for care." Co-Existing Principal Diagnosis: "when two or more diagnoses equally meet the criteria for principal diagnosis as determined by the circumstances of admission, diagnostic work up, and/or therapy provided, and the Alphabetic Index, Tabular List, or another coding guideline does not provide sequencing direction, any one of the diagnoses may be sequenced first." "When the physician has documented what appears to be a current diagnosis in the body of the record, but has not included the diagnosis in the final diagnostic statement, the physician should be asked whether the diagnosis should be added." (Source [facility]oding [facility] 2 QTR90. p3-4) PAYALD
== END 2020-09-13 14:37 | disposition home health service (06) | DRG 291 ==
LOC: ED 15:46 → 2N 17:40 → SUATTDRO 17:40 → 2N 18:54

== ENCOUNTER 2021-08-20 11:39 | Inpatient (IN) ==
--- NOTE | 2021-08-20 13:20 | Emergency Department Note ---
History of Present Illness General Chief complaint: Cardiac Assessment Stated complaint: MEDICINE AFFECTED KIDNEYS Time Seen by Provider: 08/20/21 13:14 Source: patient, family, RN notes reviewed and old records reviewed Mode of arrival: ambulatory Limitations: no limitations History of Present Illness This patient is an 89-year-old male who has a history of CHF, comes in after having approximate 18 pound weight gain in the last 6 days he has edema.he had increasing weakness and lower extremity edema. He was seen in his doctor's office today and they sent him here because he is worsening renal failure as well as worsening CHF. He has had some mild shortness of breath he has had some confusion over the last 6 days. He has had some difficulty swallowing over 2 days but his appetite is seems good he is on Coumadin has had no bleeding anywhere no blood or melena stool. No fever chills no cough. He has had Covid about a year ago as well as had the vaccine. He has generalized weakness is nonfocal. His granddaughter tells me that they stopped that Serostim I'd for 5 days and then restarted it on Monday with a half dose. He had labs done at [facility] yesterday which showed an INR of 2.7. BUN was elevated at 74 with a creatinine of 2.5. His potassium was 4.9. His BNP was also elevated at 3708. Home Medications Medication Instructions Recorded Confirmed Type ascorbic acid (vitamin C) 500 mg 500 mg PO DAILY 09/08/20 09/08/20 History tablet (Vitamin C) furosemide 40 mg tablet 40 mg PO DAILY #30 tab 09/13/20 Rx warfarin 1 mg tablet (Jantoven) 1 mg PO 3XWK #0 tab 09/13/20 09/08/20 Rx warfarin 2 mg tablet (Jantoven) 2 mg PO 4XWK #0 tab 09/13/20 09/08/20 Rx Allergies Allergy/AdvReac Type Severity Reaction Status Date / Time amlodipine Allergy Unknown Unknown Verified 09/08/20 20:15 lisinopril AdvReac Mild Cough Verified 09/08/20 20:15 Past Med/Surg History Medical History Fluid overload Pedal edema Pleural effusion SOB (shortness of breath) Surgical History No history of previous surgery Family History Other Family history unknown Social History Smoking Status: Never smoker Second Hand Exposure: No; Hx Alcohol Use: No Hx Substance Use: No Preferred Language: Sudanese Communication Ability: Effective Beliefs That Will Affect Care: None Current Living Situation: Family Current Living Situation Comment: lives with Daughter Marva Feels Safe at Home: Yes Assistive Devices: Walker Review of Systems A total of 10 systems reviewed and were otherwise negative Physical Exam Vital Signs Vital Signs - 24 hr 08/20/21 11:44 08/20/21 14:20 08/20/21 14:30 Pulse Rate 107 H 70 79 Pulse Rate from SpO2 Sensor 48 L 54 L Respiratory Rate 18 Respiratory Effort / Characteristics Non-Labored Respiratory Depth Normal Blood Pressure 129/73 Blood Pressure Mean 91 Pulse Oximetry 97 98 98 Oxygen Delivery Method Room Air Sepsis Recent Fever Within 48 Hours No Sepsis New/Unexplained Change in Mental Status No Sepsis Action Taken by Nursing No Action Required 08/20/21 14:31 08/20/21 14:40 08/20/21 14:50 Pulse Rate 83 85 70 Pulse Rate from SpO2 Sensor 49 L 62 66 Respiratory Rate Respiratory Effort / Characteristics Respiratory Depth Blood Pressure 135/89 Blood Pressure Mean 104 Pulse Oximetry 99 94 98 Oxygen Delivery Method Sepsis Recent Fever Within 48 Hours Sepsis New/Unexplained Change in Mental Status Sepsis Action Taken by Nursing General: Well developed well nourished chronically ill-appearing older older male who appears in no acute distress, breathing comfortably on room air. Speech is not slurred but is hard to hear as he mumbles HEENT: Normal cephalic atraumatic. Pupils are equal round and reactive to light. Extraocular movements are intact. Oropharynx is pink with moist mucous membranes. No swelling of the mouth lips or tongue. Neck: Supple with a midline trachea. No meningeal signs or stiffness, no JVD or bruits. No Stridor. Chest: Clear to auscultation bilaterally. No wheezes or rhonchi. No increased work of breathing. Heart: Regular rate and rhythm without murmurs or gallops. Abdomen: Soft nontender, nondistended without rebound guarding or rigidity. Extremities: No cyanosis or clubbing. He does have 1+ pitting bilateral lower extremity edema. No calf tenderness or assymetry Spine/Back. Non tender to palpation. No CVA tenderness Skin: Good turgor without rashes. Neurologic exam: Cranial nerves two through 12 are intact. Motor and sensation are intact and symmetrical throughout. Medical Decision Making Differential Diagnosis CHF, acute coronary syndrome, infection, Covid, electrolyte or metabolic abnormality, arrhythmia, dehydration, renal abnormality Medical Records Attestation: I reviewed the patient's medical records. Home Medications Current Medication List: was personally reviewed by me Laboratory Data Attestation: I reviewed the patient's lab results. Result diagrams: 08/20/21 13:47 08/20/21 13:47 Lab Results 08/20/21 08/20/21 08/20/21 Range/Units 13:45 13:47 13:47 WBC 5.12 (4.8-10.8) K/uL RBC 3.58 L (4.7-6.1) M/uL Hgb 11.8 L (14.0-18.0) g/dL Hct 35.7 L (42-52) % MCV 99.7 (80-100) fL MCH 33.0 (25-34) pg MCHC 33.1 (32-36) g/dL RDW Std Deviation 54.0 H (36.4-46.3) fL RDW Coeff of Rylie 15.5 H (11.5-14.5) % Plt Count 120 L (130-400) K/uL MPV 11.9 H (7.4-10.4) fL Immature Gran % (Auto) 0.2 % Neut % (Auto) 76.9 % Lymph % (Auto) 12.7 % [place] % (Auto) 8.8 % Eos % (Auto) 1.2 % Baso % (Auto) 0.2 % Neut # (Auto) 3.94 (1.4-6.5) K/uL Lymph # (Auto) 0.65 L (1.2-3.4) K/uL [place] # (Auto) 0.45 (0.11-0.59) K/uL Eos # (Auto) 0.06 (0-0.5) K/uL Baso # (Auto) 0.01 (0-0.2) K/uL Immature Gran # (Auto) 0.01 (0.00-0.02) K/uL PT 26.5 H (9.0-12.0) Seconds INR 2.8 H (0.9-1.1) APTT 42.4 H (21.0-31.0) Seconds PTT Ratio 1.6 Sodium (136-145) mmol/L Potassium (3.5-5.1) mmol/L Chloride (98-107) mmol/L Carbon Dioxide (21-32) mmol/L Anion Gap (3-11) BUN (6-23) mg/dl Creatinine (0.6-1.4) mg/dl Est Cr Clr Drug Dosing Est GFR ( Amer) ml/min Est GFR (Non-Af Amer) ml/min BUN/Creatinine Ratio (10-20) Glucose (70-99(Fasting)) mg/dl Calcium (8.5-10.1) mg/dl Magnesium (1.7-2.4) mg/dl Total Bilirubin (0.2-1.0) mg/dl AST (13-39) U/L ALT (7-52) U/L Alkaline Phosphatase (34-104) U/L Troponin I (0-0.04) ng/ml B-Natriuretic Peptide (0-100) pg/ml Total Protein (6.0-8.3) gm/dl Albumin (3.4-5.0) gm/dl Globulin (2.5-4.0) gm/dl Albumin/Globulin Ratio (0.9-2) Lipase (11-82) U/L SARS-CoV-2, RNA, NAAT NEGATIVE (NEGATIVE) 08/20/21 08/20/21 08/20/21 Range/Units 13:47 13:47 14:04 WBC (4.8-10.8) K/uL RBC (4.7-6.1) M/uL Hgb (14.0-18.0) g/dL Hct (42-52) % MCV (80-100) fL MCH (25-34) pg MCHC (32-36) g/dL RDW Std Deviation (36.4-46.3) fL RDW Coeff of Rylie (11.5-14.5) % Plt Count (130-400) K/uL MPV (7.4-10.4) fL Immature Gran % (Auto) % Neut % (Auto) % Lymph % (Auto) % [place] % (Auto) % Eos % (Auto) % Baso % (Auto) % Neut # (Auto) (1.4-6.5) K/uL Lymph # (Auto) (1.2-3.4) K/uL [place] # (Auto) (0.11-0.59) K/uL Eos # (Auto) (0-0.5) K/uL Baso # (Auto) (0-0.2) K/uL Immature Gran # (Auto) (0.00-0.02) K/uL PT (9.0-12.0) Seconds INR (0.9-1.1) APTT (21.0-31.0) Seconds PTT Ratio Sodium 133 L (136-145) mmol/L Potassium 4.4 (3.5-5.1) mmol/L Chloride 102 (98-107) mmol/L Carbon Dioxide 22 (21-32) mmol/L Anion Gap 9 (3-11) BUN 78 H (6-23) mg/dl Creatinine 2.51 H (0.6-1.4) mg/dl Est Cr Clr Drug Dosing Not Reportable Est GFR ( Amer) 25.3 ml/min Est GFR (Non-Af Amer) 21.8 ml/min BUN/Creatinine Ratio 31.1 H (10-20) Glucose 77 (70-99(Fasting)) mg/dl Calcium 9.6 (8.5-10.1) mg/dl Magnesium 2.4 (1.7-2.4) mg/dl Total Bilirubin 0.6 (0.2-1.0) mg/dl AST 29 (13-39) U/L ALT 22 (7-52) U/L Alkaline Phosphatase 79 (34-104) U/L Troponin I < 0.03 (0-0.04) ng/ml B-Natriuretic Peptide 225 H (0-100) pg/ml Total Protein 7.8 (6.0-8.3) gm/dl Albumin 3.7 (3.4-5.0) gm/dl Globulin 4.1 H (2.5-4.0) gm/dl Albumin/Globulin Ratio 0.9 (0.9-2) Lipase 221 H Cancelled (11-82) U/L SARS-CoV-2, RNA, NAAT (NEGATIVE) Imaging Data Attestation: I personally reviewed and interpreted this imaging study as follows: My Impression: Chest [id number] with findings consistent with CHF with central vascular congestion. No focal infiltrate. No pneumothorax seen Radiologist's Impression: Chest X-Ray 08/20/21 13:33 XR chest 1V portable CLINICAL HISTORY: Chest Pain. COMPARISON STUDY: 09/12/2020 TECHNIQUE: 1 view of the chest FINDINGS: Single frontal view of the chest demonstrates the heart to be enlarged which is accentuated by the decreased inspiratory effort. There is a decreased inspiratory effort with elevation of the hemidiaphragms and crowding of the bronchovascular markings at the lung bases and centrally. Additionally, there is evidence for mild central vascular congestion. No peripheral interstitial edema is seen. There is minimal blunting of the costophrenic angles bilaterally suspicious for small bilateral pleural effusions. No confluent alveolar opacities are seen. There is no acute osseous pathology. IMPRESSION: 1. Cardiomegaly with decreased inspiration and central vascular congestion. There is also evidence for very small bilateral pleural effusions and the findings are characteristic of early cardiac decompensation. ACT 112: Negative or not required by law. Electronically signed by: Avni Browne M.D. 08/20/2021 2:01 PM ECG Data Attestation: I personally reviewed and interpreted this ECG as follows: Indication: + weakness Rate (beats per minute): 70 Rhythm: + atrial fibrillation ECG Intervals/blocks: + Normal QRS, + Normal QT and + Normal TN ECG [place]: + Normal ECG ST segments: + T-wave inversions (Lateral and inferior ST and T wave abnormalities) ECG Findings: no PACs or no PVCs Comparison ECG Date: from (09/09/20) Change: the following changes noted (The ST and T wave the lateral and inferior abnormalities appear more pronounced) MDM Narrative This patient comes in as described above he does have a history of CHF and has had increased lower extremity edema. He was placed on a mix mill tender room B8. I did order chest x-ray EKG and multiple blood testing. He was reassessed frequently. He does have elevated renal function and I think is likely intravascularly dry but at the same time he is total body fluid overloaded as he has peripheral edema. A significant work-up was done. I did talk to the granddaughter who is one of the power of employee benefits attorney is with her mother about CODE STATUS and she said she was going to further discuss it with her mother but thinks that he would likely be want to be a DO NOT RESUSCITATE. His chest x- ray does look like pulmonary edema his EKG shows baseline A. fib is asked he and T wave abnormalities may be more pronounced than previous. He has no fever or white count to suggest infection. He has no significant anemia. The patient's daughter did arrive and I talked her at length and at this point she does want him to be a full code and full resuscitation. His BUN and creatinine continue to be elevated. I think he is intravascularly dry and fluid overloaded at the same time and will likely need consultation with cardiology, echocardiogram as well as renal/nephrology consult. [facility] Continuous cardiac monitoring: Orders placed in EMR for continuous cardiac monitoring. Upon my interpretation she was noted to be in controlled A. 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 [employer] Prescriptions Prescriptions: No Action ascorbic acid (vitamin C) [Vitamin C] 500 mg Tablet 500 mg PO DAILY RF: 0 furosemide 40 mg Tablet 40 mg PO DAILY Qty: 30 RF: 0 warfarin [Jantoven] 2 mg Tablet 2 mg PO 4XWK Qty: 0 RF: 0 warfarin [Jantoven] 1 mg Tablet 1 mg PO 3XWK Qty: 0 RF: 0 Referrals Referrals: Prasanth Ag MD [Primary Care Provider] - Discharge Problem: CHF (congestive heart failure) Qualifiers: Heart failure type: unspecified Heart failure chronicity: acute on chronic Qualified Code(s): I50.9 - Heart failure, unspecified A-fib Qualifiers: Atrial fibrillation type: longstanding persistent Qualified Code(s): I48.11 - Longstanding persistent atrial fibrillation
[2021-08-20 14:02] LABS: Basophils # (auto) 0.01 K/uL (0-0.2); Basophils % (auto) 0.2 %; Eosinophils # (auto) 0.06 K/uL (0-0.5); Eosinophils % (auto) 1.2 %; Hematocrit (blood only) 35.7 % (42-52); Hemoglobin 11.8 g/dL (14.0-18.0); Immature Granulocytes # (auto) 0.01 K/uL (0.00-0.02); Immature Granulocytes % (auto) 0.2 %; Lymphocytes # (auto) 0.65 K/uL (1.2-3.4); Lymphocytes % (auto) 12.7 %; Mean Corpuscular Hgb Conc 33.1 g/dL (32-36); Mean Corpuscular Volume 99.7 fL (80-100); Mean Platelet Volume 11.9 fL (7.4-10.4); Monocytes # (auto) 0.45 K/uL (0.11-0.59); Monocytes % (auto) 8.8 %; Neutrophils # (auto) 3.94 K/uL (1.4-6.5); Neutrophils % (auto) 76.9 %; Platelet Count 120 K/uL (130-400); RDW Coefficient of Variation 15.5 % (11.5-14.5); Red Blood Count 3.58 M/uL (4.7-6.1); White Blood Count 5.12 K/uL (4.8-10.8)
--- NOTE | 2021-08-20 14:02 | XRay Report ---
XR chest 1V portable CLINICAL HISTORY: Chest Pain. COMPARISON STUDY: 09/12/2020 TECHNIQUE: 1 view of the chest FINDINGS: Single frontal view of the chest demonstrates the heart to be enlarged which is accentuated by the de creased inspiratory effort. There is a decreased inspiratory effort with elevation of the hemidiaphra gms and crowding of the bronchovascular markings at the lung bases and centrally. Additionally, there is evidence for mild central vascular congestion. No peripheral interstitial edema is seen. There is minimal blunting of the costophrenic angles bilaterally suspicious for small bilateral pleural effus ions. No confluent alveolar opacities are seen. There is no acute osseous pathology. IMPRESSION: 1. Cardiomegaly with decreased inspiration and central vascular congestion. There is also evidence fo r very small bilateral pleural effusions and the findings are characteristic of early cardiac decompe nsation. ACT 112: Negative or not required by law. Electronically signed by: Avni Browne M.D. 08/20/2021 2:01 PM
[2021-08-20 14:22] LABS: Alanine Aminotransferase 22 U/L (7-52); Albumin Globulin Ratio 0.9 (0.9-2); Albumin Level 3.7 gm/dl (3.4-5.0); Alkaline Phosphatase 79 U/L (34-104); Anion Gap 9 (3-11); Aspartate Aminotransferase 29 U/L (13-39); BUN Creatinine Ratio 31.1 (10-20); Bilirubin,Total 0.6 mg/dl (0.2-1.0); Blood Urea Nitrogen 78 mg/dl (6-23); Calcium 9.6 mg/dl (8.5-10.1); Carbon Dioxide 22 mmol/L (21-32); Chloride 102 mmol/L (98-107); Est GFR (African American) 25.3 ml/min; Est GFR (Non-African American) 21.8 ml/min; Globulin 4.1 gm/dl (2.5-4.0); Glucose 77 mg/dl (70-99(Fasting)); Lipase 221 U/L (11-82); Magnesium 2.4 mg/dl (1.7-2.4); Potassium 4.4 mmol/L (3.5-5.1); Sodium 133 mmol/L (136-145); Total Protein 7.8 gm/dl (6.0-8.3)
[2021-08-20 14:25] LABS: Troponin I < 0.03 ng/ml (0-0.04)
[2021-08-20 14:42] LABS: INR 2.8 (0.9-1.1); Partial Thromboplastin Ratio 1.6; Partial Thromboplastin Time 42.4 Seconds (21.0-31.0); Prothrombin Time 26.5 Seconds (9.0-12.0)
[2021-08-20 16:47] LABS: Base Excess ABG -2.1 mEq/L (-9-1.8); HCO3 ABG 21 mmol/L (19-24); Oxygen Saturation ABG 98.2 % (90-95); PCO2 ABG 29 mmHg (35-46); PO2 ABG 107 mmHg (80-95); pH ABG 7.47 (7.35-7.45)
[2021-08-20 16:48] LABS: Appearance Urine Clear (Clear); Bilirubin Urine Negative (Negative); Blood Urine Negative (Negative); Color Urine Yellow; Glucose Urine UA Negative (Negative); Ketones Urine Trace (Negative); Leukocyte Esterase Urine Negative (Negative); Nitrite Urine Negative (Negative); Protein Urine Trace (Negative); Specific Gravity Urine 1.015 (1.000-1.030); Urobilinogen Urine Negative (Negative)
[2021-08-20 16:53] LABS: Allen Test Pos (Pos)
--- NOTE | 2021-08-20 17:04 | History & Physical Report ---
Date of Service August 20, 2021 Assessment & Plan (1) Altered mental status: (2) Acute worsening of stage 3 chronic kidney disease: (3) Acute on chronic heart failure with preserved ejection fraction (HFpEF): (4) Chronic atrial fibrillation: (5) Current use of retirement 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: Plan: This is an 89-year-old male who has significant past medical history of chronic HFpEF, chronic atrial fibrillation anticoagulated on warfarin, HTN, HLD, CKD stage III who presents to ED with daughter at bedside secondary to altered mental status and overall decline in functional x6 days. Altered mental status Compensated Respiratory alkalosis Hypothermia Unknown origin, does not appear to be infectious, possibly uremic Obtain CT head Obtain urinalysis, drug tox screen, ABG, ammonia level, TSH, procalcitonin remain NPO for now until mental status improves consult ST Alerted pt temp is 34.0, makenzie hugger warming blanket ordered Sepsis work up ordered with blood cultures, UA negative Initiate empiric cefepime for now, MRSA nasal screen and if positive will start Vanco Hyperammonemia NH3 150 no prior hx of Liver disease LFTS okay obtain liver US to eval for cirrhosis CT a/p from 08/2020 unremarkable liver will order lactulose SD and trend NH3 Acute on Chronic CKD -3 baseline cr 1.5 bun/cr 78 and 2.51 avoid nephrotoxic agents consult nephrology obtain urine studies Place Ewing catheter pt does not appear dry and is appears volume overloaded Discussed with Nephrology who recommended starting furosemide IV 40mg BID Acute on Chronic HFpef obtain repeat echo Last echocardiogram 09/2011 with EF 60 to 65% Patient with 18 pound weight gain, obvious signs of peripheral edema and abdominal distention Failing outpatient torsemide Consult cardiology Currently patient is not hypoxic, will defer further IV diuresis to cardiology and nephrology team Place Ewing catheter and strict I's and O's Continue metoprolol dry weight per daughter is low 160s Chronic atrial fibrillation Anticoagulated on warfarin, follows [place] [facility] Goal INR is 2-2.5, per pharmacy clinic hold warfarin today and then resume 1 mg daily Rate controlled with metoprolol DVT prophylaxis: Coumadin DISPO: med tele, discussed with clinical coordinator for pt to have extended visiting hours given confusion and unable to make own decisions at this time. PCP: Ancelmo FULL CODE Patient was seen and examined in collaboration with, Dr. Tachamo, please see addendum The chart was completed utilizing [employer] Speech voice recognition software. Grammatical errors, random word insertions, pronoun errors, and incomplete sentences are an occasional consequence of this system due to software limitations, ambient noise, and hardware issues. Any formal questions or concerns about the content, text, or information contained within the body of this dictation should be directly addressed to the provider for clarification. Admission and Anticipated Discharge Date Admission Date: Attending addendum: Patient is an 89 year old male with h/o chronic diastolic CHF, chronic Afib on Coumadin, HTN, CKD3 who presented to the ED with altered mental status and overall decline in functional status for 6 days. Patient is awake, alert and oriented to self. He did not even recognize his only daughter at bedside. No fever, chills, nausea, vomiting. Weight gain and swelling reported despite home diuretics. Oral mucosa moist, increased abdominal girth and peripheral edema, chest clear, irregular rhythm. Vitals stable. Labs and imaging reviewed. Patient is encephalopathic, unclear reason. CT head with no acute abnormality. ABG with no CO2 narcosis, Ammonia initially 150 however on repeat was 86 without administration of lactulose, no known liver disease, normal LFTs. No leucocytosis. No clear source of infection but was hypothermic to 34 and hence started on makenzie hugger and empiric antibiotics pending culture results. Does have ANITA with Cr upto 2.5 and BUN 78 ?uremia ?sepsis ?delirium. Unable to elicit asterixis. Also has acute on chronic diastolic CHF with weight gain, swelling. Nephrology and cardiology consulted to assist with diuresis, and as per family request. On coumadin for Afib, currently therapeutic. I personally reviewed the record. I interviewed and examined the patient at bedside. Patient's care is coordinated with Kady Christiansen PA-C. Please refer to the documentation above for details of patient's presentation and for discussion of other issues. History of Present Illness Chief Complaint: AMS, decline in overall function x 6 days. Primary Care Provider: Prasanth Ag MD This is an 89-year-old male who has significant past medical history of chronic HFpEF, chronic atrial fibrillation anticoagulated on warfarin, HTN, HLD, CKD stage III who presents to ED with daughter at bedside secondary to altered mental status and overall decline in functional x6 days. Of significance patient was seen by outpatient provider today. Son reported the patient has gained 18 pounds over the past 2 weeks. Approximately 1 week ago he was able to ambulate although, fill pillbox and was alert and oriented. Today he is unable to walk on own, is confused and is unaware of who his daughter is. He has been with his daughter for the past 18 months. He was seen 1 week prior in clinic secondary to increased fluid retention but was also noted to have a decrease in renal function. 1 week ago his furosemide was decreased from 20mg to 10 mg Monday through Monday. His creatinine in June 2021 was 1.5. It is since increased to 2.4 and 2.5. Per daughter at bedside he has been eating and drinking okay. His baseline dry weight is the low 160s. History was obtained from daughter and she declines any known documented fevers. She also denies father complaining of chest pain, shortness of breath or cough. She has noticed increased abdominal girth as well as increased lower extremity edema. She feels he has had increased urinary urgency, but is unsure of specifics as he was able to ambulate by himself into the bathroom. He has had a significant decline from baseline. In ED patient is alert to self only. He is hemodynamically stable and afebrile. His lab work notable for significant elevation BUN/creatinine at 70 and 2.51, BNP 225, lipase 221. He had not been worked up for altered mental status while in ED. He did not receive any IV treatment in ED. Unable to obtain family and SH due to altered mental status. PMH obtained from outpatient [facility] records. Allergies Allergy/AdvReac Type Severity Reaction Status Date / Time amlodipine Allergy Unknown Unknown Verified 09/08/20 20:15 lisinopril AdvReac Mild Cough Verified 09/08/20 20:15 Home Medications Medication Instructions Recorded Confirmed Type ascorbic acid (vitamin C) 500 mg 500 mg PO DAILY 09/08/20 08/20/21 History tablet (Vitamin C) metoprolol succinate 25 mg 25 mg PO DAILY 08/20/21 08/20/21 History tablet,extended release 24 hr torsemide 20 mg tablet 10 mg PO 08/20/21 08/20/21 History warfarin 1 mg tablet (Jantoven) 1 mg PO DAILY 02/18/22 02/18/22 History Past Med/Surg History Medical History (Updated 08/20/21 @ 16:54 by Kady Christiansen PA-C) A-fib CHF (congestive heart failure) Chronic atrial fibrillation CKD (chronic kidney disease) stage 3, GFR 30-59 ml/min Current use of retirement 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 Fluid overload HLD (hyperlipidemia) Pedal edema Pleural effusion SOB (shortness of breath) Surgical History No history of previous surgery Family History Other Family history unknown Social History Smoking Status: Never smoker Second Hand Exposure: No; Hx Alcohol Use: No Hx Substance Use: No Preferred Language: Persian Communication Ability: Impaired Communication Ability Comment: very hard of hearing Green Building Design Specialist Required: No Beliefs That Will Affect Care: Protestant Protestant Beliefs: taoist Current Living Situation: Family Current Living Situation Comment: lives with Cristian Durham Other Information That Helps Us Care for You: No Feels Safe at Home: Yes Assistive Devices: Walker Review of Systems Review of Systems: Unobtainable due to cognitive status Physical Exam Physical Exam: Constitutional: WD/WN,elderly M, vitals as above, NAD, lying in bed, A and O x 1 only, doesn't follow commands appropriately Head: Normocephalic, Atraumatic Eyes: PERRL, conjunctivae normal, anicteric sclerae ENMT: external ear and nose normal, oropharynx normal Neck: trachea midline, no thyromegaly normal visual inspection Respiratory: normal respiratory effort, lungs clear to auscultation, no wheeze, rales, rhonchi. Normal insp/exp effort, no accessory muscle use Cardiovascular: IRR/IRR, no murmur, b/l pretibial and pedal edema +2 Vessels: no JVD or carotid bruit Chest: normal inspection of chest Abdomen: distended abdomen, normal bowel sounds, soft, nontender, no hepatosplenomegaly Musculoskeletal: no cyanosis or clubbing,unable to perform MSK exam due to pt unable to follow command Skin: no rashes, warm and dry normal turgor Neurologic: PERRL, EOMI, accommodation nl, no face palsy, no dysarthria CN's II-XI intact grossly Psychiatric: A+Ox1 only, euthymic affect : deferred Results & Data Results & Data ([facility]) Vital Signs (Past 12 Hours) Vital Signs Pulse Resp BP Pulse Ox 08/20/21 16:31 76 18 158/77 H 96 08/20/21 14:50 70 98 08/20/21 14:40 85 94 08/20/21 14:31 83 135/89 99 08/20/21 14:30 79 98 08/20/21 14:20 70 98 08/20/21 11:44 107 H 18 129/73 97 Diagnostic Findings Chest X-Ray 08/20/21 13:33 XR chest 1V portable CLINICAL HISTORY: Chest Pain. COMPARISON STUDY: 09/12/2020 TECHNIQUE: 1 view of the chest FINDINGS: Single frontal view of the chest demonstrates the heart to be enlarged which is accentuated by the decreased inspiratory effort. There is a decreased inspiratory effort with elevation of the hemidiaphragms and crowding of the bronchovascular markings at the lung bases and centrally. Additionally, there is evidence for mild central vascular congestion. No peripheral interstitial edema is seen. There is minimal blunting of the costophrenic angles bilaterally suspicious for small bilateral pleural effusions. No confluent alveolar opacities are seen. There is no acute osseous pathology. IMPRESSION: 1. Cardiomegaly with decreased inspiration and central vascular congestion. There is also evidence for very small bilateral pleural effusions and the findings are characteristic of early cardiac decompensation. ACT 112: Negative or not required by law. Electronically signed by: Avni Browne M.D. 08/20/2021 2:[address] head: IMPRESSION: 1. No acute intracranial abnormality. 2. Age-related involutional changes with chronic microvascular ischemic disease. 3. Ventriculomegaly, likely on an ex vacuo basis. Normal pressure hydrocephalus considered less likely. ECG Rate (beats per minute): 70 Rhythm: atrial fibrillation Additional Comments: T wave inversions in leads V4-6, poor quality ecg COVID-19 Results Results COVID-19 Adm Lab Results: RBC 3.58 M/uL (4.7-6.1) L 08/20/21 WBC 5.12 K/uL (4.8-10.8) 08/20/21 Hgb 11.8 g/dL (14.0-18.0) L 08/20/21 Hct 35.7 % (42-52) L 08/20/21 Plt Count 120 K/uL (130-400) L 08/20/21 Neutrophils (%) (Auto) 76.9 % 08/20/21 Lymphocytes (%) (Auto) 12.7 % 08/20/21 Monocytes # (Auto) 0.45 K/uL (0.11-0.59) 08/20/21 Eosinophils # (Auto) 0.06 K/uL (0-0.5) 08/20/21 Immature Granulocyte % (Auto) 0.2 % 08/20/21 Neutrophils # (Auto) 3.94 K/uL (1.4-6.5) 08/20/21 Lymphocytes # (Auto) 0.65 K/uL (1.2-3.4) L 08/20/21 Monocytes # (Auto) 0.45 K/uL (0.11-0.59) 08/20/21 Eosinophils # (Auto) 0.06 K/uL (0-0.5) 08/20/21 Basophils # (Auto) 0.01 K/uL (0-0.2) 08/20/21 Immature Granulocyte # (Auto) 0.01 K/uL (0.00-0.02) 08/20/21 Na 133 mmol/L (136-145) L 08/20/21 K 4.4 mmol/L (3.5-5.1) 08/20/21 Cl 102 mmol/L (98-107) 08/20/21 CO2 22 mmol/L (21-32) 08/20/21 Anion Gap 9 (3-11) 08/20/21 BUN 78 mg/dl (6-23) H 08/20/21 Creatinine 2.51 mg/dl (0.6-1.4) H 08/20/21 BUN/Creatinine Ratio 31.1 (10-20) H 08/20/21 Glucose Level 77 mg/dl (70-99(Fasting)) 08/20/21 Ca 9.6 mg/dl (8.5-10.1) 08/20/21 Total Bilirubin 0.6 mg/dl (0.2-1.0) 08/20/21 AST/SGOT 29 U/L (13-39) 08/20/21 ALT/SGPT 22 U/L (7-52) 08/20/21 Alkaline Phosphatase 79 U/L (34-104) 08/20/21 Total Protein 7.8 gm/dl (6.0-8.3) 08/20/21 Albumin 3.7 gm/dl (3.4-5.0) 08/20/21 Globulin 4.1 gm/dl (2.5-4.0) H 08/20/21 Albumin/Globulin Ratio 0.9 (0.9-2) 08/20/21 Troponin I < 0.03 ng/ml (0-0.04) 08/20/21 Procalcitonin 0.08 ng/ml (0-0.5) 08/20/21 PTT 42.4 Seconds (21.0-31.0) H 08/20/21 INR 2.8 (0.9-1.1) H 08/20/21 SARS-CoV-2, RNA, NAAT NEGATIVE (NEGATIVE) 08/20/21 ABG pH 7.47 (7.35-7.45) H 08/20/21 ABG pCO2 29 mmHg (35-46) L 08/20/21 ABG pO2 107 mmHg (80-95) H 08/20/21 ABG HCO3 21 mmol/L (19-24) 08/20/21 ABG O2 Saturation 98.2 % (90-95) H 08/20/21 ABG Base Excess -2.1 mEq/L (-9-1.8) 08/20/21 Chest X-Ray 08/20/21 Code Status & VTE Plan Code Status FULL CODE VTE Prophylaxis Plan VTE Prophylaxis will be ordered: No
--- NOTE | 2021-08-20 17:09 | CT Scan Report ---
CT head/brain wo con CLINICAL HISTORY: 89 years-old Male with confusion. Acutely altered mental status TECHNIQUE: Multiple axial CT images of the head were obtained without contrast. A dose lowering tech nique was utilized adhering to the principles of ALARA. CT DOSE: 1035.81 mGycm COMPARISON: None. FINDINGS: No acute intracranial hemorrhage, midline shift, intracranial mass, hydrocephalus, territorial ischem ia or abnormal extra-axial collection. Age-related involutional changes with ventriculomegaly which i s likely on an ex vacuo basis. Calcifications of the falx cerebri. White matter hypodensities suggest chronic microvascular ischemic disease. The calvarium is intact. Small mastoid effusions. Mild mucosal thickening of the maxillary sinuses. Unremarkable soft tissues. Prior bilateral lens repair. IMPRESSION: 1. No acute intracranial abnormality. 2. Age-related involutional changes with chronic microvascular ischemic disease. 3. Ventriculomegaly, likely on an ex vacuo basis. Normal pressure hydrocephalus considered less likel y. ACT 112: Negative or not required by law. The above report was generated using voice recognition software. It may contain grammatical, syntax o r spelling errors. Electronically signed by: Teja Bolden M.D. 08/20/2021 5:07 PM
--- NOTE | 2021-08-20 17:13 | Electrocardiogram Report ---
Test Reason : Blood Pressure : / mmHG Vent. Rate : 070 BPM Atrial Rate : 057 BPM P-R Int : 000 ms QRS Dur : 092 ms QT Int : 424 ms P-R-T Axes : 000 044 -87 degrees QTc Int : 457 ms Poor data quality, interpretation may be adversely affected Atrial fibrillation Abnormal ECG When compared with ECG of 09-SEP-2020 07:37, Inverted T waves have replaced nonspecific T wave abnormality in Lateral leads Confirmed by Estevan Jeronimo ([id number]) on 08/20/2021 5:12:43 PM Referred By: REFERRED SELF Confirmed By:Estevan Jeronimo
[2021-08-20 17:18] LABS: RBC Urine Automated 0-4 /hpf (0-4)
[2021-08-20 17:19] LABS: Bacteria Urine Automated Negative (Negative); Cast Urine Automated 0 /lpf (0-5); Epithelial Cell Urine Auto 0-5 /lpf (0-5); WBC Urine Automated 0 /hpf (0-5)
[2021-08-20] MEDS ORDERED: ONDANSETRON INJ 2 MG/ML 2 ML VIAL IV PRN (17:31)
[2021-08-20] MEDS ORDERED: ALUMINUM/MAGNESIUM SUSP 30 ML UDC PO PRN (17:31)
[2021-08-20] MEDS ORDERED: MAGNESIUM HYDROXIDE SUSP 30 ML UDC PO PRN (17:31)
[2021-08-20] MEDS ORDERED: POLYETHYLENE (MIRALAX) 17 GM PACK PO PRN (17:31)
[2021-08-20] MEDS ORDERED: ACETAMINOPHEN 325 MG TAB PO PRN (17:31)
[2021-08-20] MEDS ORDERED: CONSULT PHARMACY STA (17:50)
[2021-08-20 18:43] LABS: Thyroid Stimulating Hormone 10.865 uIu/ml (0.300-4.500)
[2021-08-20 18:52] LABS: Amphetamines+Metham, Urine Neg (Neg); Barbiturates, Urine Neg (Neg); Benzodiazepine, Urine Neg (Neg); Cocaine, Urine Neg (Neg); Creatinine Urine Random 93.2 mg/dl; MDMA (Ecstacy), Urine Neg (Neg); Methadone, Urine Neg (Neg); Opiate, Urine Neg (Neg); Phencyclidine, Urine Neg (Neg); Protein Creatinine Ratio Urine 0.3 (0-0.2); Total Protein Urine Random 32.1 mg/dl (0-11.9)
[2021-08-20] MEDS: LACTULOSE 200GM/700ML WTR ENEMA PR SCH (18:52)
[2021-08-20] MEDS: FUROSEMIDE 40 MG/4 ML VIAL IV SCH (19:06)
[2021-08-20] MEDS: CEFEPIME 2,000 MG in SYRINGE 0 ML IV SCH (19:09)
[2021-08-20 19:11] LABS: Acetaminophen < 3 ug/ml (10-30); Salicylate < 3.0 mg/dl (3.0-30)
[2021-08-20 19:14] LABS: T4 Free Thyroxine 1.44 ng/dl (0.61-1.60)
[2021-08-20] MEDS ORDERED: VANCOMYCIN CONSULT ACTIVE PRN (20:22)
[2021-08-20] MEDS ORDERED: VANCOMYCIN HCL 1,250 MG in SODIUM CHLORIDE 0.9% 250 ML IV ONE (22:00)
[2021-08-20 22:12] LABS: Appearance Urine Clear (Clear); Bacteria Urine Automated Negative (Negative); Bilirubin Urine Negative (Negative); Blood Urine 3+ (Negative); Color Urine Yellow; Glucose Urine UA Negative (Negative); Ketones Urine Negative (Negative); Leukocyte Esterase Urine Trace (Negative); Nitrite Urine Negative (Negative); Protein Urine 1+ (Negative); RBC Urine Automated 0-4 /hpf (0-4); Specific Gravity Urine 1.013 (1.000-1.030); Urobilinogen Urine Negative (Negative)
[2021-08-21] MEDS: LACTULOSE 200GM/700ML WTR ENEMA PR SCH (01:56)
[2021-08-21 03:33] LABS: Basophils # (auto) 0.01 K/uL (0-0.2); Basophils % (auto) 0.1 %; Eosinophils # (auto) 0.03 K/uL (0-0.5); Eosinophils % (auto) 0.4 %; Hematocrit (blood only) 32.2 % (42-52); Hemoglobin 10.6 g/dL (14.0-18.0); Immature Granulocytes # (auto) 0.02 K/uL (0.00-0.02); Immature Granulocytes % (auto) 0.3 %; Lymphocytes # (auto) 0.58 K/uL (1.2-3.4); Lymphocytes % (auto) 7.5 %; Mean Corpuscular Hemoglobin 32.6 pg (25-34); Mean Corpuscular Hgb Conc 32.9 g/dL (32-36); Mean Corpuscular Volume 99.1 fL (80-100); Mean Platelet Volume 11.4 fL (7.4-10.4); Monocytes # (auto) 0.72 K/uL (0.11-0.59); Monocytes % (auto) 9.4 %; Neutrophils # (auto) 6.34 K/uL (1.4-6.5); Neutrophils % (auto) 82.3 %; Platelet Count 123 K/uL (130-400); RDW Coefficient of Variation 15.6 % (11.5-14.5); RDW Standard Deviation 53.7 fL (36.4-46.3); Red Blood Count 3.25 M/uL (4.7-6.1)
[2021-08-21 03:35] LABS: Base Excess ABG -1.8 mEq/L (-9-1.8); HCO3 ABG 21 mmol/L (19-24); Oxygen Saturation ABG 96.9 % (90-95); PCO2 ABG 28 mmHg (35-46); PO2 ABG 81 mmHg (80-95); pH ABG 7.49 (7.35-7.45)
[2021-08-21 03:40] LABS: Allen Test Pos (Pos)
[2021-08-21 03:45] LABS: INR 2.7 (0.9-1.1); Prothrombin Time 25.3 Seconds (9.0-12.0)
[2021-08-21 03:55] LABS: Albumin Globulin Ratio 0.9 (0.9-2); Albumin Level 3.3 gm/dl (3.4-5.0); BUN Creatinine Ratio 33.6 (10-20); Bilirubin,Total 0.7 mg/dl (0.2-1.0); Calcium 9.2 mg/dl (8.5-10.1); Creatinine Clr Calc Pharmacy 21.2 ml/min; Est GFR (African American) 27.4 ml/min; Est GFR (Non-African American) 23.6 ml/min; Globulin 3.7 gm/dl (2.5-4.0); Magnesium 2.1 mg/dl (1.7-2.4); Potassium 4.4 mmol/L (3.5-5.1)
[2021-08-21] MEDS ORDERED: METOPROLOL TARTRATE 1 MG/ML VIAL IV STA (06:29)
--- NOTE | 2021-08-21 07:01 | Ultrasound Report ---
ULTRASOUND RIGHT UPPER QUADRANT ABDOMEN CLINICAL HISTORY: Cirrhosis. COMPARISON STUDY: Abdominal CT dated 09/08/2020 TECHNIQUE: Real-time, grayscale, and color flow sonography of the right upper quadrant of the abdomen was performed. Images are reviewed in the transverse and longitudinal planes. FINDINGS: Liver: The liver is cirrhotic in morphology and heterogeneous in echotexture. The liver measures 13.7 cm in length. There is nodularity of the hepatic surface contour. There is no intrahepatic biliary d uctal dilatation. The main portal vein is patent. Gallbladder: The gallbladder is normal in appearance. No gallstones are identified. There is no gallb ladder wall thickening or pericholecystic fluid. A sonographic Duarte's sign is reportedly absent. Th e common bile duct measures up to 0.4 cm in diameter. Pancreas: Not visualized due to overlying bowel gas. Right kidney: Survey images of the right kidney demonstrate cortical atrophy. Echotexture is normal. There is no hydronephrosis. Renal sinus cysts are noted. Ascites: There is a small volume of perihepatic ascites. IMPRESSION: 1. The liver is cirrhotic in morphology and heterogeneous in echotexture. 2. No gallstones are identified. 3. Small volume perihepatic ascites. 4. Nonvisualization of the pancreas. ACT 112: Negative or not required by law. Electronically signed by: Sravan Hoffmann M.D. 08/21/2021 6:59 AM
[2021-08-21] MEDS ORDERED: ASCORBIC ACID 500 MG TAB PO SCH (09:00)
[2021-08-21] MEDS ORDERED: METOPROLOL SUCC 25MG EXT REL TAB PO SCH (09:00)
--- NOTE | 2021-08-21 09:29 | Nephrology Consultation ---
Date of Consultation August 21, 2021 Assessment & Plan (1) Acute worsening of stage 3 chronic kidney disease: According to the daughter the patient does not have any renal problems, and has never seen a community affairs director. As per H&P his baseline creatinine is 1.5, likely secondary to cardiorenal syndrome, normal RBCs with moderate proteinuria. Acute on chronic renal failure secondary to fluid overload Chest x-ray consistent with pulmonary edema and cardiomegaly, bilateral pedal edema on exam, -Renal functions have started to improve with IV Lasix, 2.35 today. Urine output has also improved. -Recommend increasing Lasix to 60 mg IV twice daily, I would leave this to cardiology as they have been managing his fluid status. -Daily BMP, input and output -Maintain MAP more than 65 -His renal functions are closely tied to his cardiac function, fluctuations in renal function as expected. -Would get baseline renal ultrasound, repeat UA and PCR. I have not spoken to the daughter about dialysis options as his functions have started to improve. This may change depending upon his response. He will need follow-up with nephrology on discharge. - (2) Acute on chronic heart failure with preserved ejection fraction (HFpEF): As above -Awaiting cardiology review (3) Altered mental status: -Raised ammonia, with a cirrhotic looking liver -Recommend GI consult (4) Chronic atrial fibrillation: History of Present Illness Reason for Consultation: Acute kidney injury Attending Physician: Lawrence Walsh MD History of Present Illness 89-year-old male with history of chronic diastolic heart failure ,chronic atrial fibrillation ,hypertension ,CKD stage III baseline creatinine 1.5, never seen a community affairs director before who was admitted with altered mental state and decline in functional status over the last week. He is known to have severe to moderate mitral insufficiency and has been on cardiology follow-up. According to the daughter patient is not for any surgical intervention. His torsemide was decreased recently and since then his pedal edema has been getting worse. However he is not in respiratory distress. No complaints of fever chills nausea vomiting passing urine. He has never seen a community affairs director before. As per daughter no problems with urination, no abdominal discomfort, no history of NSAID use, UTIs of kidney stones in the past ER labs were significant for serum creatinine of 2.5 with a BUN of 78 and a urea of 150+, no asterixis on exam. Saturations 95% on room air. Allergies Allergy/AdvReac Type Severity Reaction Status Date / Time amlodipine Allergy Unknown Unknown Verified 09/08/20 20:15 lisinopril AdvReac Mild Cough Verified 09/08/20 20:15 Home Medications Medication Instructions Recorded Confirmed Type ascorbic acid (vitamin C) 500 mg 500 mg PO DAILY 09/08/20 08/20/21 History tablet (Vitamin C) metoprolol succinate 25 mg 25 mg PO DAILY 08/20/21 08/20/21 History tablet,extended release 24 hr torsemide 20 mg tablet 10 mg PO WETHFR 08/20/21 08/20/21 History warfarin 1 mg tablet (Jantoven) 1 mg PO DAILY 08/20/21 08/20/21 History Patient History Medical History A-fib CHF (congestive heart failure) Chronic atrial fibrillation CKD (chronic kidney disease) stage 3, GFR 30-59 ml/min 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 of intermodal dispatcher 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 Fluid overload HLD (hyperlipidemia) Pedal edema Pleural effusion SOB (shortness of breath) Surgical History No history of previous surgery Family History Other Family history unknown Social History Smoking Status: Never smoker Second Hand Exposure: No; Hx Alcohol Use: No Hx Substance Use: No Preferred Language: Mauritian Communication Ability: Impaired Communication Ability Comment: very hard of hearing Medical Assistant Prn Required: No Beliefs That Will Affect Care: Jehovah'S Witness Jehovah'S Witness Beliefs: taoist Current Living Situation: Family Current Living Situation Comment: lives with Daughter Marva Other Information That Helps Us Care for You: No Feels Safe at Home: Yes Review of Systems Review of Systems: Comfortable on bed, No shortness of breath Bilateral pitting pedal edema up till knees Physical Exam Physical Exam: Constitutional: WD/WN,elderly M, vitals as above, NAD, lying in bed, oriented x2 Head: Normocephalic, Atraumatic Eyes: PERRL, conjunctivae normal, anicteric sclerae ENMT: external ear and nose normal, oropharynx normal Neck: trachea midline, no thyromegaly normal visual inspection Respiratory:Bilateral crepitations, Cardiovascular: Systolic murmur, b/l pretibial and pedal edema +2 Vessels: no JVD or carotid bruit Abdomen: distended abdomen, normal bowel sounds, soft, nontender, no hepatosplenomegaly Musculoskeletal: no cyanosis or clubbing Skin: no rashes, warm and dry normal turgor Results & Data ([facility]) Vital Signs (Past 12 Hours) Vital Signs Temp Pulse Pulse Resp BP BP Pulse Ox 08/21/21 07:41 37.1 C 111 H 18 126/78 95 08/21/21 06:36 120 H 113/67 08/21/21 03:55 37.1 C 98 H 20 112/67 93 08/21/21 03:05 37.5 C 08/21/21 02:00 37 C 08/21/21 01:02 36.4 C L 08/21/21 00:06 35.9 C L 08/20/21 23:15 70 20 112/72 95 08/20/21 23:13 85 08/20/21 22:57 35.3 C L 08/20/21 21:55 34.8 C L 08/20/21 21:17 34.3 C L Laboratory Results 08/21/21 03:18 08/21/21 03:18
[2021-08-21] MEDS: FUROSEMIDE 40 MG/4 ML VIAL IV SCH ×2 (10:29→18:06)
--- NOTE | 2021-08-21 11:50 | Cardiology Consultation ---
Date of Consultation August 21, 2021 Assessment & Plan (1) Acute on chronic heart failure with preserved ejection fraction (HFpEF): (2) Acute worsening of stage 3 chronic kidney disease: (3) A-fib: (4) Hepatic encephalopathy: (5) Cirrhosis of liver: Continue IV furosemide 60 mg twice daily. Follow daily weight, GFR, and electrolytes. Aldactone will remain on hold due to acute renal insufficiency. Nephrology input appreciated. Fair heart rate control on telemetry. Continue IV Lopressor as patient is unable to take oral medications at this time. Daily INR. Resume warfarin when able. Treatment of hepatic encephalopathy as per internal medicine. Poor prognosis. All questions answered to granddaughters satisfaction. History of Present Illness Reason for Consultation: Volume overload, diastolic heart failure, acute kidney injury Requesting Physician: Dr. Walsh Attending Physician: Lawrence Walsh MD History of Present Illness Complex 89-year-old patient sent to the emergency department by his primary care physician yesterday due to volume overload and acute renal insufficiency. Baseline creatinine 1.5 up to 2.5 per most recent lab studies. Complex cardiovascular history includes permanent atrial fibrillation on warfarin, moderate to severe mitral and tricuspid insufficiency, preserved LV systolic function, hypertension, dyslipidemia, and hypothyroidism. Patient reported 18 pound weight gain to his primary care physician. Intermitte nt noncompliance with torsemide noted. Dose recently reduced to 10 mg daily due to renal insufficiency. Aldactone also recently discontinued. Patient seen examined the bedside. Granddaughter present during interview. Patient is somnolent. Diagnosed with hepatic encephalopathy with elevated serum ammonia on admission. NG tube placed. Lactulose ordered. Patient unable to offer meaningful history. Granddaughter has questions regarding patient's complex condition. Allergies Allergy/AdvReac Type Severity Reaction Status Date / Time amlodipine Allergy Unknown Unknown Verified 09/08/20 20:15 lisinopril AdvReac Mild Cough Verified 09/08/20 20:15 Home Medications Medication Instructions Recorded Confirmed Type ascorbic acid (vitamin C) 500 mg 500 mg PO DAILY 09/08/20 08/20/21 History tablet (Vitamin C) metoprolol succinate 25 mg 25 mg PO DAILY 08/20/21 08/20/21 History tablet,extended release 24 hr torsemide 20 mg tablet 10 mg PO FR 08/20/21 08/20/21 History warfarin 1 mg tablet (Jantoven) 1 mg PO DAILY 08/20/21 08/20/21 History Patient History Medical History A-fib CHF (congestive heart failure) Chronic atrial fibrillation CKD (chronic kidney disease) stage 3, GFR 30-59 ml/min Current use of shelter 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 Fluid overload HLD (hyperlipidemia) Pedal edema Pleural effusion SOB (shortness of breath) Surgical History No history of previous surgery Family History Other Family history unknown Social History Smoking Status: Never smoker Second Hand Exposure: No; Hx Alcohol Use: No Hx Substance Use: No Preferred Language: Citizen Of [place] Communication Ability: Impaired Communication Ability Comment: very hard of hearing Spinner Concrete Pipe Required: No Beliefs That Will Affect Care: Pentecostal Pentecostal Beliefs: episcopalian Current Living Situation: Family Current Living Situation Comment: lives with Daughter Marva Other Information That Helps Us Care for You: No Feels Safe at Home: Yes Review of Systems Review of Systems: Unobtainable due to cognitive status Physical Exam Constitutional: + obese; no acute distress Respiratory: normal respiratory effort; no respiratory distress, no labored breathing and no retractions Auscultation: + rhonchi (Scattered rhonchi bilateral.); no rales and no wheezes Gastrointestinal (Abdomen): Inspection/Auscultation: + abdomen distended Percussion/Palpation: abdomen nontender, no guarding and abdomen not rigid Results & Data ([facility]) Vital Signs (Past 12 Hours) Vital Signs Temp Pulse Pulse Resp BP BP Pulse Ox 08/21/21 11:40 36.6 C 92 H 18 119/67 94 08/21/21 07:41 37.1 C 111 H 18 126/78 95 08/21/21 06:36 120 H 113/67 08/21/21 03:55 37.1 C 98 H 20 112/67 93 08/21/21 03:05 37.5 C 08/21/21 02:00 37 C 08/21/21 01:02 36.4 C L 08/21/21 00:06 35.9 C L (1) A-fib Atrial fibrillation type: longstanding persistent Qualified Code(s): I48.11 - Longstanding persistent atrial fibrillation
--- NOTE | 2021-08-21 12:18 | Hospitalist Progress Note ---
Date of Service August 21, 2021 Assessment & Plan (1) Altered mental status: Plan: Acute metabolic encephalopathy Hepatic Encephalopathy Cirrhosis -Likely due to hepatic encephalopathy. Abd u/s shows cirrhotic liver morphology (new). Prior CT Abdomen from 09/08/20 shows normal liver texture. -Ammonia up to 91 today -d/c MD lactulose. Start PO lactulose TID. This will need to be via NGT with patient's poor mental status, he will be unable to swallow -Hypervolemic. Currently on Lasix 40mg IV BID, will increase to 60mg IV BID -Family consented for viral hepatitis testing, check ferritin levels -GI consulted (2) Acute worsening of stage 3 chronic kidney disease: Plan: Likely cardiorenal Monitor with diruesis (3) Acute on chronic heart failure with preserved ejection fraction (HFpEF): Plan: Decompensated -On torsemide 10mg 4 days a week -currently lasix 40mg IV BID--> will increase to 60mg IV BID -check TTE (4) Chronic atrial fibrillation: Plan: unable to take pills currently switch PO metoprolol to Lopressor 2.5mg IV Q 6 hours -INR 2.7, continue coumadin 1mg daily if able (5) Current use of terminal block assembler 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: Admission and Anticipated Discharge Date Admission Date: August 20, 2021 Subjective Very somnolent. Grand daughter present at bedside Review of Systems Review of Systems: Unable to obtain due to mental state Physical Exam Physical Exam: somnolent, difficult to arouse, snoring loudly Neck: thick Respiratory: breathing comfortably on room air, no wheezing/rhonchi/rales Cardiovascular: no murmurs/rubs/gallops Gastrointestinal (Abdomen): obese, increased girth Musculoskeletal: 2+ edema Neurologic: somnolent, difficult to arouse Results & Data Results & Data ([facility]) Vital Signs (Past 12 Hours) Vital Signs Temp Pulse Pulse Resp BP BP Pulse Ox 08/21/21 11:40 36.6 C 92 H 18 119/67 94 08/21/21 07:41 37.1 C 111 H 18 126/78 95 08/21/21 06:36 120 H 113/67 08/21/21 03:55 37.1 C 98 H 20 112/67 93 08/21/21 03:05 37.5 C 08/21/21 02:00 37 C 08/21/21 01:02 36.4 C L Laboratory Results Short CBC 08/20/21 08/21/21 Range/Units 13:47 03:18 WBC 5.12 7.70 (4.8-10.8) K/uL Hgb 11.8 L 10.6 L (14.0-18.0) g/dL Hct 35.7 L 32.2 L (42-52) % Plt Count 120 L 123 L (130-400) K/uL BMP 08/20/21 08/21/21 13:47 03:18 Sodium 133 L 137 Potassium 4.4 4.4 Chloride 102 106 Carbon Dioxide 22 19 L BUN 78 H 79 H Creatinine 2.51 H 2.35 H Glucose 77 60 L Calcium 9.6 9.2 Cardiac Enzymes 08/20/21 Range/Units 13:47 Troponin I < 0.03 (0-0.04) ng/ml Liver Function 08/20/21 08/21/21 Range/Units 13:47 03:18 Total Bilirubin 0.6 0.7 (0.2-1.0) mg/dl AST 29 24 (13-39) U/L ALT 22 18 (7-52) U/L Alkaline Phosphatase 79 66 (34-104) U/L Albumin 3.7 3.3 L (3.4-5.0) gm/dl Urine 08/20/21 08/20/21 Range/Units 16:25 22:00 Urine Color Yellow Yellow Urine Appearance Clear Clear (Clear) Urine pH 5.0 5.0 (4.5-7.5) Ur Specific [place] 1.015 1.013 (1.000-1.030) Urine Protein Trace H 1+ H (Negative) Urine Glucose (UA) Negative Negative (Negative) Ammonia 91 Diagnostic Findings Abdominal u/s IMPRESSION: 1. The liver is cirrhotic in morphology and heterogeneous in echotexture. 2. No gallstones are identified. 3. Small volume perihepatic ascites. 4. Nonvisualization of the pancreas. Medications Administered Current Inpatient Medications Furosemide (Furosemide 40 Mg/4 Ml Vial) [address] [facility] Stop: 09/20/21 16:59 Cefepime HCl 2,000 mg/ Syringe 20 mls @ 5 mls/min IV Q24H PIA; Protocol Stop: 08/22/21 18:29 Last Admin: 08/20/21 19:09 Dose: 5 mls/min Documented by: Lactulose (Lactulose Syrup 30 Gm/45 Ml Udp) [address] [facility] Stop: 09/20/21 13:59 Metoprolol Tartrate (Metoprolol Tartrate 1 Mg/Ml Vial) 2.5 mg IV Q6 [facility]IA Stop: 09/20/21 11:59 Ondansetron HCl (Ondansetron Inj 2 Mg/Ml 2 Ml Vial) 4 mg IV Q6H PRN PRN Reason: Nausea Stop: 09/19/21 17:30 Saccharomyces Boulardii (Saccharomyces Boulardii 250 Mg Cap) 250 mg PO DAILY PIA Stop: 09/21/21 08:59 Warfarin Sodium (Warfarin Sod 1 Mg Tab) 1 mg PO DAILY@1600 [facility] Stop: 09/20/21 17:44
[2021-08-21] MEDS: METOPROLOL TARTRATE 1 MG/ML VIAL IV SCH ×2 (12:54→18:13)
--- NOTE | 2021-08-21 13:11 | XRay Report ---
KUB CLINICAL HISTORY: Enteric tube placement. FINDINGS: An AP, portable, supine abdominal radiograph is correlated with abdominal CT dated 09/08/2020 . An enteric tube has been placed. The tip projects just below the diaphragm over the gastric fundus. There is no evidence of bowel obstruction. No evidence of intraperitoneal free air is seen on this s upine image. There are no abnormal abdominal calcifications. The skeletal structures are osteopenic a nd appear intact. There is moderate lumbosacral spondylosis. The heart is enlarged and pleural effusi ons are noted. IMPRESSION: 1. An enteric tube has been placed as above. This should be advanced. 2. There is no radiographic evidence of bowel obstruction. Electronically signed by: Sravan Hoffmann M.D. 08/21/2021 1:10 PM
[2021-08-21] MEDS ORDERED: rifAXIMin 550 MG TABLET PO STA (13:20)
--- NOTE | 2021-08-21 13:36 | Gastrointestinal Consultation ---
Date of Consultation August 21, 2021 Assessment & Plan (1) Cirrhosis of liver: (2) Hepatic encephalopathy: cirrhosis decompensated by HE, likely cause is chronic CHF. currently stage 3 encephalopathy it appears recs: --lactulose TID now through NG tube --rifaximin 550 mg BID through NG tube --zinc sulfate 220 mg daily through NG tube --abx as per primary team, follow up cultures --small ascites on imaging, nothing to do at this time, can consider a diagnostic paracentesis if continues to be febrile, currently afebrile. --optimize cardiac function, diuresis as per primary team and cardiology Thank you for allowing me to participate in the care fo this patient History of Present Illness Attending Physician: Lawrence Walsh MD History of Present Illness 89 year old male with h/o chronic diastolic CHF, chronic Afib on Coumadin, HTN, CKD3 who presented to the ED with altered mental status and overall decline in functional status for 6 days. normally he is A and O at home, currently very somnolent with minimal response to sternal rub. GI consulted for encephalopathy and new onset cirrhosis. He was hypothermic on admission and is currently on abx empirrically, also with stage 3 CKD. imaging shows cirrhosis and congestion from CHF. currently has an NG tube in place. labs reviewed. tachycardic Allergies Allergy/AdvReac Type Severity Reaction Status Date / Time amlodipine Allergy Unknown Unknown Verified 09/08/20 20:15 lisinopril AdvReac Mild Cough Verified 09/08/20 20:15 Home Medications Medication Instructions Recorded Confirmed Type ascorbic acid (vitamin C) 500 mg 500 mg PO DAILY 09/08/20 08/20/21 History tablet (Vitamin C) metoprolol succinate 25 mg 25 mg PO DAILY 08/20/21 08/20/21 History tablet,extended release 24 hr torsemide 20 mg tablet 10 mg PO 08/20/21 08/20/21 History warfarin 1 mg tablet (Jantoven) 1 mg PO DAILY 08/20/21 08/20/21 History Patient History Medical History A-fib CHF (congestive heart failure) Chronic atrial fibrillation CKD (chronic kidney disease) stage 3, GFR 30-59 ml/min Current use of filler leaf cutter long 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 Fluid overload HLD (hyperlipidemia) Pedal edema Pleural effusion SOB (shortness of breath) Surgical History No history of previous surgery Family History Other Family history unknown Social History Smoking Status: Never smoker Second Hand Exposure: No; Hx Alcohol Use: No Hx Substance Use: No Preferred Language: Green[place]ic Communication Ability: Impaired Communication Ability Comment: very hard of hearing Bagel Maker Required: No Beliefs That Will Affect Care: Congregation Congregation Beliefs: spiritism Current Living Situation: Family Current Living Situation Comment: lives with Daughter Marva Other Information That Helps Us Care for You: No Feels Safe at Home: Yes Assistive Devices: Walker Review of Systems Review of Systems: Unobtainable due to cognitive status Physical Exam Constitutional: WD/WN, vitals as above ENMT: Nose: no external nose abnormality and no epistaxis Mouth: no lip abnormality Neck: normal visual inspection Respiratory: normal respiratory effort, lungs clear to auscultation Cardiovascular: RRR, no murmur, no edema Gastrointestinal (Abdomen): Inspection/Auscultation: abdomen normal to inspection; abdomen not distended Percussion/Palpation: abdomen soft; abdomen nontender and no hepatosplenomegaly Musculoskeletal: Head/Neck/Chest: normocephalic Extremities: no muscle atrophy and no cyanosis Skin: no rashes, warm and dry Neurologic: moves all extremities Psychiatric: Orientation: + not alert, + not oriented x 3 and + uncooperative Results & Data ([facility]) Vital Signs (Past 12 Hours) Vital Signs Temp Pulse Pulse Resp BP BP Pulse Ox 08/21/21 12:54 92 H 119/67 08/21/21 11:40 36.6 C 92 H 18 119/67 94 08/21/21 07:41 37.1 C 111 H 18 126/78 95 08/21/21 06:36 120 H 113/67 08/21/21 03:55 37.1 C 98 H 20 112/67 93 08/21/21 03:05 37.5 C 08/21/21 02:00 37 C PG Care Time/CCT Total # of Minutes Spent Total Time Spent with Patient: Total time spent is greater than 50% in coordination of care (as documented) at patient's floor/unit and/or counseling patient: Coding Level of Care Code 46371 Initial Inpt Care Lvl 3 Diagnoses Cirrhosis of liver K74.60 Hepatic encephalopathy K72.90
[2021-08-21] MEDS: LACTULOSE SYRUP 30 GM/45 ML UDP PO SCH ×2 (14:15→23:33)
[2021-08-21] MEDS: rifAXIMin 550 MG TABLET PO SCH ×2 (14:15→23:34)
[2021-08-21] MEDS: ZINC SULFATE 220 MG CAPSULE PO SCH (14:15)
--- NOTE | 2021-08-21 14:17 | XRay Report ---
KUB CLINICAL HISTORY: Enteric tube advancement. FINDINGS: An AP, portable, upright view of the lower chest and upper abdomen is compared to study per formed earlier the same day 08/21/2021 and correlated with abdominal CT dated 09/08/2020. The enteric tu be has been advanced. The tip now projects just below the diaphragm over the proximal stomach. The si de holes are located below the diaphragm. There is no evidence of bowel obstruction. No evidence of i ntraperitoneal free air is seen below the diaphragm. There are no abnormal abdominal calcifications. The skeletal structures are osteopenic and appear intact. The heart is enlarged and pleural effusion s are noted. IMPRESSION: 1. An enteric tube has been advanced as above. 2. There is no radiographic evidence of bowel obstruction. Electronically signed by: Sravan Hoffmann M.D. 08/21/2021 2:15 PM
[2021-08-21 14:41] LABS: Appearance Urine Clear (Clear); Bacteria Urine Automated Negative (Negative); Bilirubin Urine Negative (Negative); Blood Urine 2+ (Negative); Color Urine Yellow; Glucose Urine UA Negative (Negative); Ketones Urine Trace (Negative); Leukocyte Esterase Urine 2+ (Negative); Nitrite Urine Negative (Negative); Protein Urine Negative (Negative); Urobilinogen Urine Negative (Negative); WBC Urine Automated >30 /hpf (0-5)
[2021-08-21] MEDS ORDERED: METOCLOPRAMIDE HCL INJ 5 MG/ML 2 ML VIAL IV STA (15:16)
[2021-08-21] MEDS ORDERED: WARFARIN SOD 1 MG TAB PO SCH (17:45)
[2021-08-21] MEDS: CEFEPIME 2,000 MG in SYRINGE 0 ML IV SCH (18:12)
--- NOTE | 2021-08-21 22:55 | Ultrasound Report ---
ULTRASOUND KIDNEYS AND BLADDER CLINICAL HISTORY: Acute on chronic renal insufficiency. COMPARISON STUDY: Abdominal CT dated 09/08/2020. TECHNIQUE: Real-time, grayscale, and color flow sonography of the kidneys and bladder is performed. I mages are reviewed in the transverse and longitudinal planes. FINDINGS: Kidneys: The kidneys demonstrate cortical atrophy. Echotexture appears slightly increased. The right kidney measures 9.7 cm in length and the left kidney measures 9.3 cm in length. There is no hydroneph rosis. No shadowing renal calculi are identified. There is no sonographic evidence of contour deformi ng renal mass lesion. No perinephric fluid is identified. Bladder: The bladder is decompressed around a Ewing catheter and could not be assessed. IMPRESSION: 1. The kidneys demonstrate cortical atrophy and slightly increased echotexture consistent with medica l renal disease. 2. There is no hydronephrosis. 3. The bladder was decompressed around a Ewing catheter and could not be assessed. ACT 112: Negative or not required by law. Electronically signed by: Sravan Hoffmann M.D. 08/21/2021 10:54 PM
[2021-08-21] MEDS: METOCLOPRAMIDE HCL INJ 5 MG/ML 2 ML VIAL IV SCH (23:33)
[2021-08-22] MEDS: METOPROLOL TARTRATE 1 MG/ML VIAL IV SCH ×5 (00:38→18:57)
[2021-08-22 05:48] LABS: Basophils # (auto) 0.02 K/uL (0-0.2); Basophils % (auto) 0.2 %; Eosinophils # (auto) 0.04 K/uL (0-0.5); Eosinophils % (auto) 0.5 %; Hematocrit (blood only) 33.7 % (42-52); Hemoglobin 10.9 g/dL (14.0-18.0); Immature Granulocytes # (auto) 0.02 K/uL (0.00-0.02); Immature Granulocytes % (auto) 0.2 %; Lymphocytes # (auto) 0.98 K/uL (1.2-3.4); Lymphocytes % (auto) 11.6 %; Mean Corpuscular Hemoglobin 32.6 pg (25-34); Mean Corpuscular Hgb Conc 32.3 g/dL (32-36); Mean Corpuscular Volume 100.9 fL (80-100); Mean Platelet Volume 10.3 fL (7.4-10.4); Neutrophils # (auto) 6.29 K/uL (1.4-6.5); Neutrophils % (auto) 74.5 %; Platelet Count 130 K/uL (130-400); RDW Coefficient of Variation 15.9 % (11.5-14.5); RDW Standard Deviation 56.4 fL (36.4-46.3); Red Blood Count 3.34 M/uL (4.7-6.1); White Blood Count 8.45 K/uL (4.8-10.8)
[2021-08-22 05:59] LABS: Prothrombin Time 27.6 Seconds (9.0-12.0)
[2021-08-22 06:13] LABS: Albumin Globulin Ratio 0.9 (0.9-2); Albumin Level 3.4 gm/dl (3.4-5.0); BUN Creatinine Ratio 27.9 (10-20); Calcium 9.3 mg/dl (8.5-10.1); Creatinine Clr Calc Pharmacy 18.7 ml/min; Est GFR (African American) 23.7 ml/min; Est GFR (Non-African American) 20.4 ml/min; Globulin 3.8 gm/dl (2.5-4.0); Magnesium 2.1 mg/dl (1.7-2.4); Potassium 3.4 mmol/L (3.5-5.1); Total Protein 7.2 gm/dl (6.0-8.3)
[2021-08-22 06:34] LABS: Ferritin 276.7 ng/ml (8-388)
[2021-08-22] MEDS: LACTULOSE SYRUP 30 GM/45 ML UDP PO SCH ×3 (07:41→21:59)
[2021-08-22] MEDS: ZINC SULFATE 220 MG CAPSULE PO SCH (07:41)
[2021-08-22] MEDS: rifAXIMin 550 MG TABLET PO SCH ×2 (07:42→21:58)
[2021-08-22] MEDS: FUROSEMIDE 40 MG/4 ML VIAL IV SCH ×3 (07:42→18:56)
[2021-08-22] MEDS: SACCHAROMYCES BOULARDII 250 MG CAP PO SCH (07:42)
[2021-08-22] MEDS: METOCLOPRAMIDE HCL INJ 5 MG/ML 2 ML VIAL IV SCH ×3 (07:43→21:58)
[2021-08-22] MEDS ORDERED: POTASSIUM CHLORIDE 20 MEQ/15 ML UDC PO ONE (08:15)
--- NOTE | 2021-08-22 12:38 | Cardiology Progress Note ---
Date of Service August 22, 2021 Assessment & Plan (1) Acute on chronic heart failure with preserved ejection fraction (HFpEF): (2) Acute worsening of stage 3 chronic kidney disease: (3) A-fib: (4) Hepatic encephalopathy: (5) Cirrhosis of liver: Plan: Reduce furosemide to 40 mg twice daily. Follow daily weight, GFR, and electrolytes. Aldactone will remain on hold due to acute renal insufficiency. Nephrology input appreciated. Fair heart rate control on telemetry. Continue IV Lopressor as patient is unable to take oral medications at this time. INR up to 3.0 today. Hold warfarin. Repeat PT/INR in a.m. Treatment of hepatic encephalopathy as per internal medicine and gastroenterology. Poor prognosis. Admission and Anticipated Discharge Date Admission Date: August 20, 2021 Subjective Patient seen exam at the bedside. Remains somnolent however more arousable today. Opens eyes to verbal stimulation. No purposeful movements noted however moving upper extremities occasionally. Grandson present at bedside. present via speaker phone during evaluation. Fluid balance -2.5 L with creatinine trending upward to 2.65. INR 3.0 today. Oxygenation adequate on room air. Serum ammonia trending downward. Review of Systems Review of Systems: Unobtainable due to cognitive status Physical Exam Constitutional: + obese; no acute distress Respiratory: normal respiratory effort; no respiratory distress, no labored breathing and no retractions Auscultation: + rhonchi (Scattered rhonchi bilateral.); no rales and no wheezes Gastrointestinal (Abdomen): Inspection/Auscultation: + abdomen distended Percussion/Palpation: abdomen nontender, no guarding and abdomen not rigid Results & Data ([facility]) Vital Signs (Past 12 Hours) Vital Signs Temp Pulse Pulse Resp BP BP Pulse Ox 08/22/21 12:01 36.6 C 80 18 137/66 94 08/22/21 11:32 110 H 128/79 08/22/21 07:55 36.2 C L 84 24 120/77 94 08/22/21 06:10 104 H 119/75 08/22/21 06:03 104 H 119/75 08/22/21 05:49 37.0 C 08/22/21 02:51 36.0 C L 85 20 123/70 95 08/22/21 00:38 108 H 125/76 (1) A-fib Atrial fibrillation type: longstanding persistent Qualified Code(s): I48.11 - Longstanding persistent atrial fibrillation
--- NOTE | 2021-08-22 13:03 | Hospitalist Progress Note ---
Date of Service August 22, 2021 Assessment & Plan (1) Altered mental status: Plan: Hepatic Encephalopathy Cirrhosis -Abd u/s shows cirrhotic liver morphology (new). Prior CT Abdomen from 09/08/20 shows normal liver texture. -Ammonia 91--> 54 -continue PO lactulose TID and rifaximin -ferritin and viral hepatitis pending -cirrhosis likely from chronic CHF (2) Acute worsening of stage 3 chronic kidney disease: Plan: Likely cardiorenal Monitor with diruesis (3) Acute on chronic heart failure with preserved ejection fraction (HFpEF): Plan: Decompensated -On torsemide 10mg 4 days a week -Lasix managed by Cardiology, reduced to 40mg IV BID (4) Chronic atrial fibrillation: Plan: unable to take pills currently -continue Lopressor 2.5mg IV Q 6 hours -hold coumadin for supratherapeutic INR (5) Current use of [facility]dc 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: Admission and Anticipated Discharge Date Admission Date: August 20, 2021 Subjective Remains confused but more arousable today Spontaneously moving arms Diuresing well 2 large BM since start of lactulose Physical Exam Physical Exam: somnolent but arouses to touch Respiratory: snoring loudly, no wheezing/rhonchi Cardiovascular: irregular but not rapid Gastrointestinal (Abdomen): hypoactive Musculoskeletal: 1+ edema Neurologic: more arousable today, withdraws to pain, spontaneously moving arms Results & Data Results & Data ([facility]) Vital Signs (Past 12 Hours) Vital Signs Temp Pulse Pulse Resp BP BP Pulse Ox 08/22/21 12:01 36.6 C 80 18 137/66 94 08/22/21 11:32 110 H 128/79 08/22/21 07:55 36.2 C L 84 24 120/77 94 08/22/21 06:10 104 H 119/75 08/22/21 06:03 104 H 119/75 08/22/21 05:49 37.0 C 08/22/21 02:51 36.0 C L 85 20 123/70 95 Laboratory Results Short CBC 08/22/21 Range/Units 05:35 WBC 8.45 (4.8-10.8) K/uL Hgb 10.9 L (14.0-18.0) g/dL Hct 33.7 L (42-52) % Plt Count 130 (130-400) K/uL BMP 08/22/21 05:35 Sodium 143 Potassium 3.4 L D Chloride 109 H Carbon Dioxide 22 BUN 74 H Creatinine 2.65 H D Glucose 78 Calcium 9.3 Liver Function 08/22/21 Range/Units 05:35 Total Bilirubin 1.0 (0.2-1.0) mg/dl AST 32 (13-39) U/L ALT 19 (7-52) U/L Alkaline Phosphatase 68 (34-104) U/L Albumin 3.4 (3.4-5.0) gm/dl Urine 08/21/21 Range/Units Unknown Urine Color Yellow Urine Appearance Clear (Clear) Urine pH 5.0 (4.5-7.5) Ur Specific [place] 1.010 (1.000-1.030) Urine Protein Negative (Negative) Urine Glucose (UA) Negative (Negative) Ammonia: 91--> 54 Medications Administered Current Inpatient Medications Furosemide (Furosemide 40 Mg/4 Ml Vial) 40 mg IV BID17 [facility] Stop: 09/21/21 16:59 Cefepime HCl 2,000 mg/ Syringe 20 mls @ 5 mls/min IV Q24H [facility]; Protocol Stop: 08/22/21 18:29 Last Admin: 08/21/21 18:12 Dose: 5 mls/min Documented by: Lactulose (Lactulose Syrup 30 Gm/45 Ml Udp) 30 gm PO TID [facility] Stop: 09/20/21 13:59 Last Admin: 08/22/21 07:41 Dose: 30 gm Documented by: Metoclopramide HCl (Metoclopramide Hcl Inj 5 Mg/Ml 2 Ml Vial) 5 mg IV TID [facility] Stop: 08/22/21 21:01 Last Admin: 08/22/21 07:43 Dose: 5 mg Documented by: Metoprolol Tartrate (Metoprolol Tartrate 1 Mg/Ml Vial) 2.5 mg IV Q6 [facility] Stop: 09/20/21 11:59 Last Admin: 08/22/21 11:32 Dose: 2.5 mg Documented by: Ondansetron HCl (Ondansetron Inj 2 Mg/Ml 2 Ml Vial) 4 mg IV Q6H PRN PRN Reason: Nausea Stop: 09/19/21 17:30 Last Admin: 08/21/21 15:30 Dose: 4 mg Documented by: Rifaximin (Rifaximin 550 Mg Tablet) 550 mg PO Q12 [facility] Stop: 09/20/21 13:24 Last Admin: 08/22/21 07:42 Dose: 550 mg Documented by: Saccharomyces Boulardii (Saccharomyces Boulardii 250 Mg Cap) 250 mg PO DAILY [facility] Stop: 09/21/21 08:59 Last Admin: 08/22/21 07:42 Dose: 250 mg Documented by: Warfarin Sodium (Warfarin Sod 1 Mg Tab) 1 mg PO Q2D@1600 [facility] Stop: 09/22/21 15:59 Zinc Sulfate (Zinc Sulfate 220 Mg Capsule) 220 mg PO QAM [facility] Stop: 09/20/21 13:24 Last Admin: 08/22/21 07:41 Dose: 220 mg Documented by:
--- NOTE | 2021-08-22 14:46 | Gastroenterology Progress Note ---
Date of Service August 22, 2021 Assessment & Plan (1) Hepatic encephalopathy: (2) Cirrhosis of liver: Plan: AMS likely multifactorial, he is slightly improved today after receiving lactulose, rifaximin, zinc and having bowel movements. recs: --add lactulose enema x 2 now --continue lactulose TID through NG tube, rifaximin BID and zinc sulfate daily --abx as per primary team (certainly should consider uremia from worsening kidney disease and infectious etologies for his AMS) Admission and Anticipated Discharge Date Admission Date: August 20, 2021 Subjective had multiple bowel movements with lactulose overnight and today. opening eyes today but not tracking, remains on abx and treatment for HE. labs reviewed, VSS. Review of Systems Review of Systems: Unobtainable due to cognitive status Physical Exam Constitutional: WD/WN, vitals as above Respiratory: normal respiratory effort, lungs clear to auscultation Cardiovascular: RRR, no murmur, no edema Gastrointestinal (Abdomen): normal bowel sounds, soft, nontender, no hepatosplenomegaly Musculoskeletal: no lower extremity edema Psychiatric: Orientation: + not alert, + not oriented x 3 and + uncooperative Cognition: + attention not intact Results & Data Results & Data ([facility]) Vital Signs (Past 12 Hours) Vital Signs Temp Pulse Pulse Resp BP BP Pulse Ox 08/22/21 12:01 36.6 C 80 18 137/66 94 08/22/21 11:32 110 H 128/79 08/22/21 07:55 36.2 C L 84 24 120/77 94 08/22/21 06:10 104 H 119/75 08/22/21 06:03 104 H 119/75 08/22/21 05:49 37.0 C 08/22/21 02:51 36.0 C L 85 20 123/70 95 PG Care Time/CCT Total # of Minutes Spent Total Time Spent with Patient: Total time spent is greater than 50% in coordination of care (as documented) at patient's floor/unit and/or counseling patient: Coding Level of Care Code 92353 Subseq Hosp Care Lvl 3 Diagnoses Hepatic encephalopathy K72.90 Cirrhosis of liver K74.60
--- NOTE | 2021-08-22 14:47 | Nephrology Progress Note ---
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 As per H&P his baseline creatinine is 1.5, likely secondary to cardiorenal syndrome, normal RBCs with moderate proteinuria. Acute on chronic renal failure secondary to fluid overload Chest x-ray consistent with pulmonary edema and cardiomegaly, bilateral pedal edema on exam, -Renal functions have declined, although UOP is good. Agree with decreasing the lasix to 40 mg BID. -Daily BMP, input and output -Maintain MAP more than 65 -His renal functions are closely tied to his cardiac function, fluctuations in renal function as expected. -Renal ultrasound- Bilateral smallish kidney, , he has chronicity to his renal disease. I have spoken to the son about dialysis options,he would discuss this with family before making a final decision. He will need follow-up with nephrology on discharge. - (2) Acute on chronic heart failure with preserved ejection fraction (HFpEF): Plan: As above (3) Altered mental status: Plan: -Raised ammonia, with a cirrhotic looking liver -GI following (4) Chronic atrial fibrillation: Admission and Anticipated Discharge Date Admission Date: August 20, 2021 Subjective Sleepy but arousable, still confused. Diuresing well 2 large BM since start of lactulose Review of Systems Review of Systems: Comfortable on bed, No shortness of breath Bilateral pitting pedal edema up till knees, improved Physical Exam Physical Exam: Constitutional: WD/WN,elderly M, vitals as above, NAD, lying in bed, Sleepy but arousable,confused Head: Normocephalic, Atraumatic Eyes: PERRL, conjunctivae normal, anicteric sclerae ENMT: external ear and nose normal, oropharynx normal Neck: trachea midline, no thyromegaly normal visual inspection Respiratory:Bilateral crepitations, Cardiovascular: Systolic murmur, b/l pretibial and pedal edema +2 Vessels: no JVD or carotid bruit Abdomen: distended abdomen, normal bowel sounds, soft, nontender, no hepatosplenomegaly Musculoskeletal: no cyanosis or clubbing Skin: no rashes, warm and dry normal turgor Results & Data ([facility]) Vital Signs (Past 12 Hours) Vital Signs Temp Pulse Pulse Resp BP BP Pulse Ox 08/22/21 12:01 36.6 C 80 18 137/66 94 08/22/21 11:32 110 H 128/79 08/22/21 07:55 36.2 C L 84 24 120/77 94 08/22/21 06:10 104 H 119/75 08/22/21 06:03 104 H 119/75 08/22/21 05:49 37.0 C 08/22/21 02:51 36.0 C L 85 20 123/70 95 Laboratory Results 08/22/21 05:35 08/22/21 05:35
[2021-08-22] MEDS: CEFEPIME 2,000 MG in SYRINGE 0 ML IV SCH ×2 (18:03→18:57)
[2021-08-22] MEDS: LACTULOSE 200GM/700ML WTR ENEMA PR SCH ×2 (19:03→23:45)
[2021-08-23] MEDS: METOPROLOL TARTRATE 1 MG/ML VIAL IV SCH ×4 (00:47→17:53)
[2021-08-23 07:00] LABS: Basophils # (auto) 0.03 K/uL (0-0.2); Basophils % (auto) 0.3 %; Eosinophils # (auto) 0.06 K/uL (0-0.5); Eosinophils % (auto) 0.7 %; Hematocrit (blood only) 35.4 % (42-52); Hemoglobin 11.4 g/dL (14.0-18.0); Immature Granulocytes # (auto) 0.01 K/uL (0.00-0.02); Immature Granulocytes % (auto) 0.1 %; Lymphocytes # (auto) 0.97 K/uL (1.2-3.4); Lymphocytes % (auto) 11.1 %; Mean Corpuscular Hemoglobin 33.3 pg (25-34); Mean Corpuscular Hgb Conc 32.2 g/dL (32-36); Mean Corpuscular Volume 103.5 fL (80-100); Mean Platelet Volume 10.9 fL (7.4-10.4); Monocytes # (auto) 1.16 K/uL (0.11-0.59); Monocytes % (auto) 13.3 %; Neutrophils # (auto) 6.47 K/uL (1.4-6.5); Neutrophils % (auto) 74.5 %; Platelet Count 136 K/uL (130-400); RDW Coefficient of Variation 16.3 % (11.5-14.5); RDW Standard Deviation 59.3 fL (36.4-46.3); Red Blood Count 3.42 M/uL (4.7-6.1)
[2021-08-23 07:10] LABS: INR 2.8 (0.9-1.1); Prothrombin Time 26.6 Seconds (9.0-12.0)
[2021-08-23 07:29] LABS: Albumin Globulin Ratio 0.9 (0.9-2); Albumin Level 3.4 gm/dl (3.4-5.0); BUN Creatinine Ratio 27.5 (10-20); Bilirubin,Total 1.1 mg/dl (0.2-1.0); Calcium 9.5 mg/dl (8.5-10.1); Creatinine Clr Calc Pharmacy 20.7 ml/min; Est GFR (African American) 27.3 ml/min; Est GFR (Non-African American) 23.5 ml/min; Magnesium 2.1 mg/dl (1.7-2.4); Potassium 3.1 mmol/L (3.5-5.1); Total Protein 7.4 gm/dl (6.0-8.3)
[2021-08-23] MEDS ORDERED: POTASSIUM CHLORIDE 20 MEQ/15 ML UDC PO STA (08:18)
--- NOTE | 2021-08-23 09:34 | Nephrology Progress Note ---
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 As per H&P his baseline creatinine is 1.5, likely secondary to cardiorenal syndrome, normal RBCs with moderate proteinuria. Acute on chronic renal failure secondary to fluid overload -Renal functions have declined, although UOP is good. na went up a lot to 153 from 143 yesterday. he is NPO. Given this would recommend to hold lasix for now. Did discuss with Cards also. -Daily BMP, input and output -Maintain MAP more than 65 -His renal functions are closely tied to his cardiac function, fluctuations in renal function as expected. -Renal ultrasound- Bilateral smallish kidney, , he has chronicity to his renal d isease. he is not a dialysis Candidate given his extensive med problems and advanced age. - (2) Acute on chronic heart failure with preserved ejection fraction (HFpEF): Plan: As above. na up a lot means free h20 deficit. (3) Altered mental status: Plan: Much worse than yesterday and now has sickly Stare (4) Chronic atrial fibrillation: Admission and Anticipated Discharge Date Admission Date: August 20, 2021 Subjective Sleepy but arousable, still confused. Diuresing well 2 large BM since start of lactulose Review of Systems Review of Systems: Unresponsive. Sickly stare Physical Exam Physical Exam: Constitutional: WD/WN,elderly M, vitals as above, NAD, lying in bed, Sleepy but arousable,confused Head: Normocephalic, Atraumatic Eyes: PERRL, conjunctivae normal, anicteric sclerae ENMT: external ear and nose normal, oropharynx normal Neck: trachea midline, no thyromegaly normal visual inspection Respiratory:Bilateral crepitations, Cardiovascular: Systolic murmur, b/l pretibial and pedal edema +2 Vessels: no JVD or carotid bruit Abdomen: distended abdomen, normal bowel sounds, soft, nontender, no hepatosplen omegaly Musculoskeletal: no cyanosis or clubbing Skin: no rashes, warm and dry normal turgor Results & Data ([facility]) Vital Signs (Past 12 Hours) Vital Signs Temp Pulse Pulse Resp BP BP Pulse Ox 08/23/21 07:32 36.7 C 106 H 20 150/83 H 93 08/23/21 06:06 98 H 136/88 08/23/21 06:00 37.1 C 98 H 16 136/88 95 08/23/21 03:16 35.9 C L 94 H 20 142/100 H 96 08/23/21 02:06 109 H 08/23/21 00:47 110 H 140/80 08/23/21 00:25 110 H 140/80 08/22/21 23:17 36.3 C L 86 20 137/83 95
[2021-08-23] MEDS: SACCHAROMYCES BOULARDII 250 MG CAP PO SCH (10:36)
[2021-08-23] MEDS: LACTULOSE SYRUP 30 GM/45 ML UDP PO SCH ×3 (10:36→21:59)
[2021-08-23] MEDS: FUROSEMIDE 40 MG/4 ML VIAL IV SCH (10:36)
[2021-08-23] MEDS: rifAXIMin 550 MG TABLET PO SCH ×2 (10:37→22:00)
[2021-08-23] MEDS: ZINC SULFATE 220 MG CAPSULE PO SCH (10:37)
[2021-08-23] MEDS ORDERED: PEPTAMEN 1.5 CAL 1,000 ML BAG NG SCH (15:00)
[2021-08-23 15:58] LABS: Hepatitis C IgG 13Yrs+Old_Rflx Neg (Neg)
[2021-08-23] MEDS ORDERED: WARFARIN SOD 1 MG TAB PO SCH (16:00)
[2021-08-23] MEDS: TUBE FEEDING WATER FLUSH GT SCH ×4 (16:25→22:51)
--- NOTE | 2021-08-23 16:30 | Cardiology Progress Note ---
Date of Service August 23, 2021 Assessment & Plan (1) Acute on chronic heart failure with reduced ejection fraction and diastolic dysfunction: (2) Acute worsening of stage 3 chronic kidney disease: (3) A-fib: (4) Hepatic encephalopathy: (5) Cirrhosis of liver: (6) Hypernatremia: Plan: Discontinue IV furosemide due to hypernatremia. Recommend free water flushes via NG tube. Repeat BMP in a.m. Consider addition of D5W pending evaluation by internal medicine and nephrology. Follow daily weight, GFR, and electrolytes. Aldactone will remain on hold due to volume depletion and acute renal insufficiency. Heart rate elevated currently due to volume depletion. Blood pressure remains adequate. Titrate metoprolol to 5 mg every 6 hours. INR 2.8 today. Repeat in a.m. Consider restarting warfarin pending review of a.m. labs. Serum ammonia trending downward, however, patient remains encephalopathic. Blood cultures negative. Afebrile. Currently treated with empiric broad- spectrum antibiotic, cefepime daily. In regard to patient's electrolyte derangement, agree with 40 mEq of oral potassium today. Repeat labs in a.m. I suspect potassium will improve with discontinuation of furosemide. Poor prognosis. Admission and Anticipated Discharge Date Admission Date: August 20, 2021 Subjective Patient seen and examined at the bedside. Unable to answer questions due to encephalopathy. Minimally responsive to verbal stimuli. Telemetry reveals atrial fibrillation with heart rate ranging from 100-110 bpm. Echocardiogram performed 08/20 demonstrating a decline in LV systolic function. Fluid balance - 2.8 L on twice daily Lasix. Hypernatremia noted today. Serum creatinine trending downward with reduction of Lasix to 40 mg twice daily. Oxygen saturation 96% on room air. Ammonia trending downward. Review of Systems Review of Systems: Unobtainable due to cognitive status Physical Exam Constitutional: + obese; no acute distress ENMT: Mucous membranes dry. NG tube in place. Respiratory: normal respiratory effort; no respiratory distress, no labored breathing and no retractions Auscultation: + rhonchi (Scattered rhonchi bilateral.); no rales and no wheezes Cardiovascular: Rate/Rhythm: + irregularly irregular Heart Sounds: normal S1 and normal S2; no murmur Extremities: + edema (Trace to mild bilateral pedal and ankle) Gastrointestinal (Abdomen): Inspection/Auscultation: + abdomen distended Percussion/Palpation: abdomen nontender, no guarding and abdomen not rigid Results & Data ([facility]) Vital Signs (Past 12 Hours) Vital Signs Temp Pulse Pulse Resp BP BP Pulse Ox 08/23/21 16:01 36.4 C 77 18 134/89 96 08/23/21 14:31 112 H 150/71 H 08/23/21 11:01 36.7 C 103 H 20 149/81 H 95 08/23/21 07:32 36.7 C 106 H 20 150/83 H 93 08/23/21 06:06 98 H 136/88 08/23/21 06:00 37.1 C 98 H 16 136/88 95 (1) A-fib Atrial fibrillation type: longstanding persistent Qualified Code(s): I48.11 - Longstanding persistent atrial fibrillation
[2021-08-23 16:38] LABS: Hepatitis B Surf Ag Rflx Conf Neg (Neg)
--- NOTE | 2021-08-23 17:51 | Hospitalist Progress Note ---
Date of Service August 23, 2021 Assessment & Plan (1) Hypernatremia: (2) Acute on chronic heart failure with reduced ejection fraction and diastolic dysfunction: (3) Cirrhosis of liver: (4) Hepatic encephalopathy: Plan: #. Acute metabolic encephalopathy #. Hepatic encephalopathy #. Hypernatremia -- see below #. Liver cirrhosis,, likely new diagnosis. Plan: Admitting CT head negative for acute findings. Admitting US abdomen: Liver cirrhosis with a small volume perihepatic ascites. Prior CT Abdomen from 09/08/20 shows normal liver texture. AMS multifactorial: Cirrhosis, uremia, ammonia, sodium elevation Cirrhosis likely from chronic CHF Ammonia level at presentation 91, down trended to 30 today Appreciate GI input, continue with lactulose, zinc sulfate and rifaximin Patient remains difficult to arouse, minimally responsive to verbal stimuli, has elevated sodium level today, will await improvement in sodium level. Given negative fever, negative procalcitonin, no elevation in WBC, no left shift with WBC differential, will DC cefepime as it can contribute to encephalopathy Consider neurology consult if still altered despite normal ammonia and normal sodium level. #. Acute worsening of stage 3 chronic kidney disease: #. Hyponatremia Admitting renal ultrasound: Consistent with medical renal disease, no hydronephrosis. Likely cardiorenal Sodium 153 today, from 143 yesterday, likely secondary to dehydration, patient n.p.o. Nephrology on board, holding diuretics today, hypernatremic today, I's and O's, not a dialysis candidate given extensive medical problems and advanced age as per nephrology. Patient is started on tube feed, increase free water flushes, repeat BMP in the evening, follow BMP daily #. Acute on chronic heart failure with preserved ejection fraction (HFpEF): Plan: Admitting CXR: Cardiomegaly with central vascular congestion and very small bilateral pleural effusion suggestive of early cardiac decompensation. Decompensated, 08/20 echo--revealed decline in EF, 30 to 35% currently, moderate to severe MR. -On torsemide 10mg 4 days a week at home -Lasix managed by Cardiology, holding today. #. Chronic atrial fibrillation: Plan: unable to take pills currently -continue Lopressor 2.5mg IV Q 6 hours -INR therapeutic today, resume Coumadin, monitor PT/INR daily given cirrhosis, will need readjustment of his Coumadin dose, close follow-up with Coumadin clinic as outpatient. Admission and Anticipated Discharge Date Admission Date: August 20, 2021 Subjective Patient seen and examined at bedside for altered mental status, Hepatic encephalopathy, cirrhosis, acute worsening of stage III chronic kidney disease, acute on chronic heart failure with preserved ejection fraction. Patient was lying in bed, NG tube in situ, on room air, difficult to arouse, unable to cooperate. Apparently patient was more interactive yesterday but has been not responding in the morning per RN. Patient sodium level was found to be elevated today, increasing free water flushes. Will start patient on tube feed. ROS n/a. Per RN patient had 2 bowel movement in the morning. Physical Exam Physical Exam: GENERAL: Somnolent, difficult to arouse, on RA, NAD HEENT: No pallor, no icterus. Pupils equal, round and reactive to light. Oral mucosa moist. NECK: No JVD, no neck masses. HEART: S1 and S2 heard. irregular rate and rhythm. No murmur, no gallop. RESPIRATORY SYSTEM: Normal AP diameter. No accessory muscle use. No wheezing, diffuse and bilateral crackles. ABDOMEN: Soft, bowel sounds present, no grimace, no distention. Appears tense. CENTRAL NERVOUS SYSTEM: No facial droop. n/a EXTREMITIES: 1+ BLE edema, no erythema seen. Results & Data Results & Data ([facility]) Vital Signs (Past 12 Hours) Vital Signs Temp Pulse Pulse Resp BP BP Pulse Ox 08/23/21 16:01 36.4 C 77 18 134/89 96 08/23/21 14:31 112 H 150/71 H 08/23/21 11:01 36.7 C 103 H 20 149/81 H 95 08/23/21 07:32 36.7 C 106 H 20 150/83 H 93 08/23/21 06:06 98 H 136/88 08/23/21 06:00 37.1 C 98 H 16 136/88 95
[2021-08-23 18:10] LABS: BUN Creatinine Ratio 28.6 (10-20); Calcium 9.8 mg/dl (8.5-10.1); Creatinine Clr Calc Pharmacy 22.5 ml/min; Est GFR (African American) 30.2 ml/min; Potassium 3.6 mmol/L (3.5-5.1)
[2021-08-23] MEDS ORDERED: SCOPOLAMINE 1 MG TDSY TD ONE (21:33)
[2021-08-23 23:50] LABS: Basophils # (auto) 0.01 K/uL (0-0.2); Basophils % (auto) 0.1 %; Eosinophils # (auto) 0.05 K/uL (0-0.5); Eosinophils % (auto) 0.5 %; Hematocrit (blood only) 36.7 % (42-52); Hemoglobin 11.5 g/dL (14.0-18.0); Immature Granulocytes # (auto) 0.04 K/uL (0.00-0.02); Immature Granulocytes % (auto) 0.4 %; Lymphocytes # (auto) 1.05 K/uL (1.2-3.4); Lymphocytes % (auto) 9.9 %; Mean Corpuscular Volume 105.2 fL (80-100); Mean Platelet Volume 10.9 fL (7.4-10.4); Monocytes # (auto) 1.36 K/uL (0.11-0.59); Monocytes % (auto) 12.8 %; Neutrophils # (auto) 8.08 K/uL (1.4-6.5); Neutrophils % (auto) 76.3 %; Platelet Count 153 K/uL (130-400); RDW Coefficient of Variation 16.5 % (11.5-14.5); Red Blood Count 3.49 M/uL (4.7-6.1); White Blood Count 10.59 K/uL (4.8-10.8)
[2021-08-23 23:58] LABS: Base Excess ABG 1.9 mEq/L (-9-1.8); HCO3 ABG 26 mmol/L (19-24); Oxygen Saturation ABG 98.5 % (90-95); PCO2 ABG 39 mmHg (35-46); PO2 ABG 118 mmHg (80-95); pH ABG 7.44 (7.35-7.45)
[2021-08-24 00:01] LABS: Mean Corpuscular Hgb Conc 31.3 g/dL (32-36)
[2021-08-24] MEDS: CHECK SCOPOLAMINE PATCH PLACEMENT SCH ×2 (00:01→09:28)
[2021-08-24 00:09] LABS: Albumin Globulin Ratio 0.8 (0.9-2); Albumin Level 3.5 gm/dl (3.4-5.0); BUN Creatinine Ratio 30.6 (10-20); Bilirubin,Total 0.9 mg/dl (0.2-1.0); Calcium 9.7 mg/dl (8.5-10.1); Creatinine Clr Calc Pharmacy 23.7 ml/min; Est GFR (African American) 32.1 ml/min; Est GFR (Non-African American) 27.7 ml/min; Globulin 4.2 gm/dl (2.5-4.0); Potassium 3.5 mmol/L (3.5-5.1); Total Protein 7.7 gm/dl (6.0-8.3)
[2021-08-24 00:17] LABS: Allen Test POS (Pos)
[2021-08-24] MEDS: ATROPINE SULFATE 1% OP SOLN 5 ML BTL SL PRN ×3 (00:28→22:16)
[2021-08-24] MEDS: METOPROLOL TARTRATE 1 MG/ML VIAL IV SCH ×3 (00:32→12:02)
[2021-08-24] MEDS ORDERED: DEXTROSE 5% 1,000 ML IV SCH (01:45)
[2021-08-24] MEDS: TUBE FEEDING WATER FLUSH GT SCH ×7 (02:11→22:11)
--- NOTE | 2021-08-24 07:12 | XRay Report ---
XR chest 1V portable HISTORY: 89 years-old Male conmgestion? Acute shortness of breath with congestion COMPARISON: Chest radiograph 08/20/2021 TECHNIQUE: AP view of the chest FINDINGS: Cardiac silhouette is enlarged. Atherosclerosis of the thoracic aorta. No pneumothorax. Trace right a nd small left pleural effusions with mild left basilar consolidation. There is resolved pulmonary ping ma compared to the prior study. An enteric tube distal tip projects over the stomach. Degenerative ch anges of the shoulders and spine. IMPRESSION: 1. Cardiomegaly with resolved pulmonary edema. 2. Trace right and small left pleural effusions. 3. Mild persistent left basilar consolidation suggestive of atelectasis versus pneumonia. ACT 112: Negative or not required by law. The above report was generated using voice recognition software. It may contain grammatical, syntax o r spelling errors. Electronically signed by: Teja Bolden M.D. 08/24/2021 7:11 AM
[2021-08-24 08:14] LABS: Hematocrit (blood only) 37.8 % (42-52); Hemoglobin 11.7 g/dL (14.0-18.0); Mean Corpuscular Hemoglobin 33.2 pg (25-34); Mean Corpuscular Volume 107.4 fL (80-100); Mean Platelet Volume 10.6 fL (7.4-10.4); Platelet Count 152 K/uL (130-400); RDW Coefficient of Variation 16.5 % (11.5-14.5); Red Blood Count 3.52 M/uL (4.7-6.1); White Blood Count 11.16 K/uL (4.8-10.8)
[2021-08-24 08:20] LABS: INR 2.8 (0.9-1.1); Prothrombin Time 26.6 Seconds (9.0-12.0)
[2021-08-24 08:38] LABS: BUN Creatinine Ratio 30.9 (10-20); Calcium 9.5 mg/dl (8.5-10.1); Est GFR (African American) 35.9 ml/min; Magnesium 2.3 mg/dl (1.7-2.4); Phosphorus 2.3 mg/dl (2.5-4.9); Potassium 3.6 mmol/L (3.5-5.1)
[2021-08-24] MEDS: rifAXIMin 550 MG TABLET PO SCH ×2 (09:28→22:14)
[2021-08-24] MEDS: LACTULOSE SYRUP 30 GM/45 ML UDP PO SCH ×3 (09:28→22:14)
[2021-08-24] MEDS: SACCHAROMYCES BOULARDII 250 MG CAP PO SCH (09:29)
[2021-08-24] MEDS: ZINC SULFATE 220 MG CAPSULE PO SCH (09:29)
--- NOTE | 2021-08-24 09:59 | Gastroenterology Progress Note ---
Date of Service August 24, 2021 Assessment & Plan (1) Hepatic encephalopathy: Plan: Ammonia normalized to 27 with 2 Lactulose enemas, Lactulose 30 mg TID, & Xifaxan 550 mg BID. Would continue Xifaxan 550 mg BID and Lactulose 30 mg TID (titrate to 3-4 BMs daily). Given resolution of hyperammonemia but persistence of altered mental status, would recommend investigation of non-GI causes of his altered mental status. Admission and Anticipated Discharge Date Admission Date: August 20, 2021 Supervising Physician Co-Signing Physician Notes Agree with PETE Gallego as above Abd: Soft, NT, ND, +BS Continue current therapy and supportive care Subjective Patient is an 89 yo male with multiple ongoing medical issues. GI was consulted due to concerns of hyperammonemia. With 2 Lactulose enemas, Lactulose po, & Xifaxan 550 mg BID, his ammonia normalized to 27. Despite this, his mental status remained diminished. Patient's family at bedside today. Goals of care have been reassessed per primary team documentation. Kidney function appears to be improving. Na remains elevated at 155. Review of Systems Review of Systems: Unobtainable due to reduced consciousness Physical Exam Constitutional: + ill appearing and + altered mental status Respiratory: no labored breathing Cardiovascular: Rate/Rhythm: + tachycardic Skin: no jaundice Results & Data Results & Data ([facility]) Vital Signs (Past 12 Hours) Vital Signs Temp Pulse Pulse Resp BP BP BP 08/24/21 07:31 37 C 98 H 20 124/68 08/24/21 05:31 124 H 124/74 08/24/21 02:48 36.3 C L 88 18 120/73 08/24/21 00:32 105 H 124/76 08/23/21 23:55 94 H 08/23/21 23:11 37.0 C 100 H 20 114/68 08/23/21 23:02 Pulse Ox 08/24/21 07:31 96 08/24/21 05:31 08/24/21 02:48 97 08/24/21 00:32 08/23/21 23:55 08/23/21 23:11 88 L 08/23/21 23:02 88 L PG Care Time/CCT Total # of Minutes Spent Total Time Spent with Patient: Total time spent is greater than 50% in coordination of care (as documented) at patient's floor/unit and/or counseling patient: Coding Level of Care Code 99725 Subseq Hosp Care Lvl 2 Diagnoses Hepatic encephalopathy K72.90
--- NOTE | 2021-08-24 10:05 | Nephrology Progress Note ---
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 As per H&P his baseline creatinine is 1.5, likely secondary to cardiorenal syndrome, normal RBCs with moderate proteinuria. Acute on chronic renal failure secondary to fluid overload Na went up a lot to 153 and now 155. he is NPO. Given this would recommend to hold lasix for now. Did discuss with Cards also. Increase free h20 flush even more. may have to give some d5w to bring it down a bit. If agreeable to cards. -His renal functions are closely tied to his cardiac function, fluctuations in renal function as expected. -Renal ultrasound- Bilateral smallish kidney, , he has chronicity to his renal disease. he is not a dialysis Candidate given his extensive med problems and advanced age. His renal function improving so no need here anyway - (2) Acute on chronic heart failure with preserved ejection fraction (HFpEF): Plan: As above. na up a lot means free h20 deficit--Hold lasix (3) Altered mental status: Plan: Much worse --has sickly Stare Subjective mental status worse. making urine. NPO and na rising. Review of Systems Review of Systems: Unresponsive. Sickly stare Physical Exam Physical Exam: Constitutional: WD/WN,elderly M, vitals as above, NAD, lying in bed. Head: Normocephalic, Atraumatic Eyes: PERRL, conjunctivae normal, anicteric sclerae ENMT: external ear and nose normal, oropharynx normal Neck: trachea midline, no thyromegaly normal visual inspection Respiratory:Bilateral crepitations, Cardiovascular: Systolic murmur, b/l pretibial and pedal edema +2 Vessels: no JVD or carotid bruit Abdomen: distended abdomen, normal bowel sounds, soft, nontender, no hepatosplenomegaly Musculoskeletal: no cyanosis or clubbing Skin: no rashes, warm and dry normal turgor Results & Data ([facility]) Vital Signs (Past 12 Hours) Vital Signs Temp Pulse Pulse Resp BP BP BP 08/24/21 07:31 37 C 98 H 20 124/68 08/24/21 05:31 124 H 124/74 08/24/21 02:48 36.3 C L 88 18 120/73 08/24/21 00:32 105 H 124/76 08/23/21 23:55 94 H 08/23/21 23:11 37.0 C 100 H 20 114/68 08/23/21 23:02 Pulse Ox 08/24/21 07:31 96 08/24/21 05:31 08/24/21 02:48 97 08/24/21 00:32 08/23/21 23:55 08/23/21 23:11 88 L 08/23/21 23:02 88 L
--- NOTE | 2021-08-24 12:00 | Cardiology Progress Note ---
Date of Service August 24, 2021 Assessment & Plan (1) Acute on chronic heart failure with reduced ejection fraction and diastolic dysfunction: (2) Acute worsening of stage 3 chronic kidney disease: (3) A-fib: (4) Hepatic encephalopathy: (5) Cirrhosis of liver: (6) Hypernatremia: Plan: Agree with increasing free water flushes due to hypernatremia. Furosemide will remain on hold. Patient does not appear volume overloaded. Repeat chest x-ray performed last evening demonstrates resolution of pulmonary edema. Heart rates remain elevated however reasonable giving overall clinical status. Follow daily weight, GFR, and electrolytes. Aldactone will remain on hold due to volume depletion and acute renal insufficiency. Mental status has not improved. Blood cultures negative. ABG performed last night within acceptable range. Serum ammonia level has trended downward. Heart rate elevated currently due to volume depletion. Blood pressure remains adequate. Continue metoprolol to 5 mg every 6 hours (titrated 08/23/2021) INR 2.8 today. Continue warfarin as ordered. Consider repeat imaging of the head and/or neurology consultation for further evaluation of ongoing encephalopathy. Poor prognosis. Admission and Anticipated Discharge Date Admission Date: August 20, 2021 Subjective Patient seen and examined at the bedside. Remains somnolent and minimally responsive to verbal and tactile stimuli. Mental status unchanged. Creatinine trending downward. Serum sodium unchanged. Telemetry reveals atrial fibrillati on with heart rate ranging from 90 to 110 bpm. Daughter present at bedside. She has questions regarding overall medical status. Review of Systems 2 Review of Systems: Unobtainable due to cognitive status Physical Exam Constitutional: + obese; no acute distress Respiratory: normal respiratory effort; no respiratory distress, no labored breathing and no retractions Auscultation: + rhonchi (Scattered rhonchi bilateral.); no rales and no wheezes Cardiovascular: Rate/Rhythm: + irregularly irregular Heart Sounds: normal S1 and normal S2; no murmur Extremities: + edema (Trace to mild bilateral pedal and ankle) Gastrointestinal (Abdomen): Inspection/Auscultation: + abdomen distended Percussion/Palpation: abdomen nontender, no guarding and abdomen not rigid Results & Data ([facility]) Vital Signs (Past 12 Hours) Vital Signs Temp Pulse Pulse Resp BP BP BP 08/24/21 11:18 36.7 C 114 H 20 119/70 08/24/21 07:31 37 C 98 H 20 124/68 08/24/21 05:31 124 H 124/74 08/24/21 02:48 36.3 C L 88 18 120/73 08/24/21 00:32 105 H 124/76 Pulse Ox 08/24/21 11:18 96 08/24/21 07:31 96 08/24/21 05:31 08/24/21 02:48 97 08/24/21 00:32 (1) A-fib Atrial fibrillation type: longstanding persistent Qualified Code(s): I48.11 - Longstanding persistent atrial fibrillation
--- NOTE | 2021-08-24 12:45 | Neurology Consultation ---
Date of Consultation August 24, 2021 Assessment & Plan (1) Hepatic encephalopathy: 1. MRI brain - would no likely be helpful at this point 2. folate, B12, thiamine 3. elevated ammonia levels - given lactulose 4. would remove scopolamine patch 5. multiple system failure - guarded prognosis. 6. EEG - ordered. ok for tomorrow am 7. continue to monitor labs 8. free water flushes with through feeding tube (2) Altered mental status: (3) Hypernatremia: 1. continue free water hydration Supervising Physician Co-Signing Physician Notes Patient was seen and examined. Daughter at bedside. Agree negar Hanna PA-C as noted below. An 89 year old male with Afib on Coumadin and CHF admitted with encephalopathy presumed due to hepatic encephalopathy and worsening renal function and acute CHF. Ammonia elavted at 150 but normalized. Patient sodium remains elevated. On examine patient appears acutely ill. Has NG with non re- breather. Non verbal. Not following commands. Eyes midline. Pupils symmetric. no facial assymetry. No myoclonic jerks. tone is symmetric. Tongue midline. Presumed metabollic encephalopathy with now superimposed hypoactive delirium. Will arrange for EEG as discussed with daughter at bedside. History of Present Illness Reason for Consultation: acute mental status change Requesting Physician: Trent Freeman MD Attending Physician: Trent Freeman MD History of Present Illness Jimenez is an 89 year old male who has PMH- chronic HFpEF, chronic Afib anticoagulated on warfarin, HTN, HLD, CKD stage III who presents to [facility] ED 08/20/21 secondary to altered mental status and overall decline in functional x6 days. He has gained 18 pounds over the past 2 weeks. Approximately 1 week ago he was able to ambulate although, fill pillbox and was alert and oriented now is unable to walk on own, is confused and is unaware of who his daughter is but has lived with her the past 18 months. He was seen 1 week prior in clinic secondary to increased fluid retention but was also noted to have a decrease in renal function.1 week ago his furosemide was decreased from 20mg to 10 mg Monday through Monday. His creatinine in June 2021 was 1.5. It is since increased to 2.4 and 2.5. He has been eating and drinking okay his baseline dry weight is the low 160s.She noticed increased abdominal girth as well as increased lower extremity edema. She feels he has had increased urinary urgency, but is unsure of specifics as he was able to ambulate by himself into the bathroom. He has had a significant decline from baseline. His lab work notable for significant elevation BUN/creatinine at 70 and 2.51, BNP 225, lipase 221. his daughter is in the room and thinks his decline started about 11 days ago with ambulation. He started using a walker and then was unable to ambulate and wa brought to the hospital with walker. Allergies Allergy/AdvReac Type Severity Reaction Status Date / Time amlodipine Allergy Unknown Unknown Verified 09/08/20 20:15 lisinopril AdvReac Mild Cough Verified 09/08/20 20:15 Home Medications Medication Instructions Recorded Confirmed Type ascorbic acid (vitamin C) 500 mg 500 mg PO DAILY 09/08/20 08/20/21 History tablet (Vitamin C) metoprolol succinate 25 mg 25 mg PO DAILY 08/20/21 08/20/21 History tablet,extended release 24 hr torsemide 20 mg tablet 10 mg PO WETHFR 08/20/21 08/20/21 History warfarin 1 mg tablet (Jantoven) 1 mg PO DAILY 08/20/21 08/20/21 History Patient History Medical History A-fib CHF (congestive heart failure) Chronic atrial fibrillation CKD (chronic kidney disease) stage 3, GFR 30-59 ml/min 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 use of watermelon 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 Fluid overload HLD (hyperlipidemia) Pedal edema Pleural effusion SOB (shortness of breath) Surgical History No history of previous surgery Family History Other Family history unknown Social History Smoking Status: Never smoker Second Hand Exposure: No; Hx Alcohol Use: No Hx Substance Use: No Preferred Language: Tajik Communication Ability: Unable Communication Ability Comment: very hard of hearing 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 Beliefs That Will Affect Care: Amish Amish Beliefs: buddhism Current Living Situation: Family Current Living Situation Comment: lives with Daughter Marva Other Information That Helps Us Care for You: No Feels Safe at Home: Yes Assistive Devices: Oxygen - Continuous Review of Systems Review of Systems: Unobtainable due to cognitive status Physical Exam Physical Exam: Physical Exam: Constitutional: nourished, non responsive Ears, Nose, Mouth and Throat: mucous membranes moist, no injection and skin normal, eyes normal Cardiovascular: irregular Respiratory: mouth breathing , course Musculoskeletal: no peripheral edema and good distal pulses Skin: appear flushed Eyes: non focal, minimally reactive NEUROLOGIC EXAMINATION: Mental status: non responsive to deep stimulation Cranial Nerves unable to test Reflexes: Deep tendon reflexes decreased throughout Sensory: non responsive to stimulation Gait/Stance: Posture lying in bed with venti mask Motor: neck is somewhat stiff but moblie Strength: unable to assess Results & Data ([facility]) Vital Signs (Past 12 Hours) Vital Signs Temp Pulse Pulse Resp BP BP BP 08/24/21 11:18 36.7 C 114 H 20 119/70 08/24/21 07:31 37 C 98 H 20 124/68 08/24/21 05:31 124 H 124/74 08/24/21 02:48 36.3 C L 88 18 120/73 Pulse Ox 08/24/21 11:18 96 08/24/21 07:31 96 08/24/21 05:31 08/24/21 02:48 97 Laboratory Results Abnormal lab results 08/23/21 08/23/21 08/23/21 Range/Units 16:37 17:33 23:34 WBC (4.8-10.8) K/uL RBC 3.49 L (4.7-6.1) M/uL Hgb 11.5 L (14.0-18.0) g/dL Hct 36.7 L (42-52) % MCV 105.2 H (80-100) fL MCHC 31.3 L (32-36) g/dL RDW Std Deviation 62.0 H (36.4-46.3) fL RDW Coeff of Rylie 16.5 H (11.5-14.5) % MPV 10.9 H (7.4-10.4) fL Neut # (Auto) 8.08 H (1.4-6.5) K/uL Lymph # (Auto) 1.05 L (1.2-3.4) K/uL [place] # (Auto) 1.36 H (0.11-0.59) K/uL Immature Gran # (Auto) 0.04 H (0.00-0.02) K/uL PT (9.0-12.0) Seconds INR (0.9-1.1) ABG pO2 (80-95) mmHg ABG HCO3 (19-24) mmol/L ABG O2 Saturation (90-95) % ABG Base Excess (-9-1.8) mEq/L Sodium 154 H (136-145) mmol/L Chloride 119 H (98-107) mmol/L BUN 62 H (6-23) mg/dl Creatinine 2.17 H (0.6-1.4) mg/dl BUN/Creatinine Ratio 28.6 H (10-20) Glucose 102 H (70-99(Fasting)) mg/dl POC Glucose 110 H (70-99) mg/dl Phosphorus (2.5-4.9) mg/dl Globulin (2.5-4.0) gm/dl Albumin/Globulin Ratio (0.9-2) 08/23/21 08/23/21 08/24/21 Range/Units 23:34 23:34 00:15 WBC (4.8-10.8) K/uL RBC (4.7-6.1) M/uL Hgb (14.0-18.0) g/dL Hct (42-52) % MCV (80-100) fL MCHC (32-36) g/dL RDW Std Deviation (36.4-46.3) fL RDW Coeff of Rylie (11.5-14.5) % MPV (7.4-10.4) fL Neut # (Auto) (1.4-6.5) K/uL Lymph # (Auto) (1.2-3.4) K/uL [place] # (Auto) (0.11-0.59) K/uL Immature Gran # (Auto) (0.00-0.02) K/uL PT (9.0-12.0) Seconds INR (0.9-1.1) ABG pO2 118 H (80-95) mmHg ABG HCO3 26 H (19-24) mmol/L ABG O2 Saturation 98.5 H (90-95) % ABG Base Excess 1.9 H (-9-1.8) mEq/L Sodium 155 H (136-145) mmol/L Chloride 120 H (98-107) mmol/L BUN 63 H (6-23) mg/dl Creatinine 2.06 H (0.6-1.4) mg/dl BUN/Creatinine Ratio 30.6 H (10-20) Glucose 124 H (70-99(Fasting)) mg/dl POC Glucose 134 H (70-99) mg/dl Phosphorus (2.5-4.9) mg/dl Globulin 4.2 H (2.5-4.0) gm/dl Albumin/Globulin Ratio 0.8 L (0.9-2) 08/24/21 08/24/21 08/24/21 Range/Units 06:05 07:48 07:48 WBC (4.8-10.8) K/uL RBC (4.7-6.1) M/uL Hgb (14.0-18.0) g/dL Hct (42-52) % MCV (80-100) fL MCHC (32-36) g/dL RDW Std Deviation (36.4-46.3) fL RDW Coeff of Rylie (11.5-14.5) % MPV (7.4-10.4) fL Neut # (Auto) (1.4-6.5) K/uL Lymph # (Auto) (1.2-3.4) K/uL [place] # (Auto) (0.11-0.59) K/uL Immature Gran # (Auto) (0.00-0.02) K/uL PT 26.6 H (9.0-12.0) Seconds INR 2.8 H (0.9-1.1) ABG pO2 (80-95) mmHg ABG HCO3 (19-24) mmol/L ABG O2 Saturation (90-95) % ABG Base Excess (-9-1.8) mEq/L Sodium 155 H (136-145) mmol/L Chloride 122 H (98-107) mmol/L BUN 58 H (6-23) mg/dl Creatinine 1.88 H (0.6-1.4) mg/dl BUN/Creatinine Ratio 30.9 H (10-20) Glucose 149 H (70-99(Fasting)) mg/dl POC Glucose 148 H (70-99) mg/dl Phosphorus 2.3 L (2.5-4.9) mg/dl Globulin (2.5-4.0) gm/dl Albumin/Globulin Ratio (0.9-2) 08/24/21 Range/Units 07:48 WBC 11.16 H (4.8-10.8) K/uL RBC 3.52 L (4.7-6.1) M/uL Hgb 11.7 L (14.0-18.0) g/dL Hct 37.8 L (42-52) % MCV 107.4 H (80-100) fL MCHC 31.0 L (32-36) g/dL RDW Std Deviation 63.0 H (36.4-46.3) fL RDW Coeff of Rylie 16.5 H (11.5-14.5) % MPV 10.6 H (7.4-10.4) fL Neut # (Auto) (1.4-6.5) K/uL Lymph # (Auto) (1.2-3.4) K/uL [place] # (Auto) (0.11-0.59) K/uL Immature Gran # (Auto) (0.00-0.02) K/uL PT (9.0-12.0) Seconds INR (0.9-1.1) ABG pO2 (80-95) mmHg ABG HCO3 (19-24) mmol/L ABG O2 Saturation (90-95) % ABG Base Excess (-9-1.8) mEq/L Sodium (136-145) mmol/L Chloride (98-107) mmol/L BUN (6-23) mg/dl Creatinine (0.6-1.4) mg/dl BUN/Creatinine Ratio (10-20) Glucose (70-99(Fasting)) mg/dl POC Glucose (70-99) mg/dl Phosphorus (2.5-4.9) mg/dl Globulin (2.5-4.0) gm/dl Albumin/Globulin Ratio (0.9-2) Diagnostic Findings CXR-Cardiomegaly with decreased inspiration and central vascular congestion. There is also evidence for very small bilateral pleural effusions and the findings are characteristic of early cardiac decompensation. CT head-No acute intracranial abnormality. Age-related involutional changes with chronic microvascular ischemic disease. Ventriculomegaly, likely on an ex vacuo basis. Normal pressure hydrocephalus considered less likely. abdominal US-The liver is cirrhotic in morphology and heterogeneous in echotexture. No gallstones are identified. Small volume perihepatic ascites. Nonvisualization of the pancreas.
[2021-08-24 14:07] LABS: Hepatitis A Antibody IgM NON-REACTIVE (NON-REACTIVE); Hepatitis B Core Antibody IgM NON-REACTIVE (NON-REACTIVE)
--- NOTE | 2021-08-24 15:32 | Hospitalist Progress Note ---
Date of Service August 24, 2021 Assessment & Plan (1) Hypernatremia: (2) Acute on chronic heart failure with reduced ejection fraction and diastolic dysfunction: (3) Cirrhosis of liver: (4) Hepatic encephalopathy: Plan: #. Acute metabolic encephalopathy #. Hepatic encephalopathy #. Hypernatremia -- see below #. Liver cirrhosis,, likely new diagnosis. Plan: Admitting CT head negative for acute findings. Admitting US abdomen: Liver cirrhosis with a small volume perihepatic ascites. Prior CT Abdomen from 09/08/20 shows normal liver texture. AMS multifactorial: Cirrhosis, uremia, ammonia, sodium elevation Cirrhosis likely from chronic CHF Ammonia level at presentation 91, down trended to normal, continue to trend daily. Appreciate GI input, continue with lactulose 30 mg 3 times daily and rifaximin 550 mg twice daily Patient remains difficult to arouse, unable to respond verbal/tactile stimuli Neurology consult, awaiting recs. #. Acute worsening of stage 3 chronic kidney disease: #. Hyponatremia Baseline creatinine around 1.5 Admitting renal ultrasound: Consistent with medical renal disease, no hydronephrosis. Likely cardiorenal Sodium 155 today, was 143 on 08/22, likely secondary to dehydration, patient n.p.o. Nephrology on board, holding diuretics, remains hypernatremic today, I's and O's, not a dialysis candidate given extensive medical problems and advanced age as per nephrology. Patient is started on tube feed, increase free water flushes further, repeat BMP in the evening, follow BMP daily Sodium level minimally uptrending, creatinine downtrending. IV fluids being managed by nephrology in coordination with cardiology. Increasing free water flushes further today. #. Acute on chronic heart failure with preserved ejection fraction (HFpEF): Plan: Admitting CXR: Cardiomegaly with central vascular congestion and very small bilateral pleural effusion suggestive of early cardiac decompensation. Decompensated, 08/20 echo--revealed decline in EF, 30 to 35% currently, moderate to severe MR. -On torsemide 10mg 4 days a week at home -Lasix managed by Cardiology/nephrology, holding today. -Repeat CXR 08/23 reveals improvement of pulmonary edema. #. Chronic atrial fibrillation: Plan: unable to take pills currently -continue home dose metoprolol via NG tube. -INR therapeutic today, resume Coumadin, monitor PT/INR daily given cirrhosis, will need readjustment of his Coumadin dose, close follow-up with Coumadin clinic as outpatient. 08/23 and 08/24 --> updated Marva, patient's daughter at bedside. Updated about the current status of the patient and answered all her questions. She stated 08/23 that she wishes to change his CODE STATUS to DNR/DNI. Admission and Anticipated Discharge Date Admission Date: August 20, 2021 Subjective Patient seen and examined at bedside for altered mental status, Hepatic encephalopathy, cirrhosis, acute worsening of stage III chronic kidney disease, acute on chronic heart failure with preserved ejection fraction. Patient was lying in bed, NG tube in situ with tube feed running, on 2L via Oxymask, difficult to arouse to voice/tactile stimuli. Apparently patient was more interactive 08/22 but has been not responding since 08/23. Patient sodium level was found to be elevated 08/23 and is still uptrending, increasing free water flushes further, patient got gentle fluid hydration overnight. ROS n/a. Per RN patient had no bowel movement in the morning. Aim for 3 bowel movements daily. Continue with lactulose. Physical Exam Physical Exam: GENERAL: Somnolent, difficult to arouse to tactile/verbal stimuli, on 2 L by oxygen mask, NAD HEENT: No pallor, no icterus. Pupils equal, round and reactive to light. Oral mucosa moist. NECK: No JVD, no neck masses. HEART: S1 and S2 heard. irregular rate and rhythm. No murmur, no gallop. RESPIRATORY SYSTEM: Normal AP diameter. No accessory muscle use. No wheezing, bilateral crackles has improved. ABDOMEN: Soft, bowel sounds present, no grimace, no distention. Appears tense. CENTRAL NERVOUS SYSTEM: No facial droop. n/a EXTREMITIES: No BLE edema, no erythema seen. Results & Data Results & Data ([facility]) Vital Signs (Past 12 Hours) Vital Signs Temp Pulse Pulse Resp BP BP BP 08/24/21 11:18 36.7 C 114 H 20 119/70 08/24/21 07:31 37 C 98 H 20 124/68 08/24/21 05:31 124 H 124/74 Pulse Ox 08/24/21 11:18 96 08/24/21 07:31 96 08/24/21 05:31
[2021-08-24 17:06] LABS: BUN Creatinine Ratio 27.8 (10-20); Calcium 9.4 mg/dl (8.5-10.1); Creatinine Clr Calc Pharmacy 21.3 ml/min; Est GFR (Non-African American) 26.8 ml/min; Potassium 3.5 mmol/L (3.5-5.1)
[2021-08-24] MEDS ORDERED: THIAMINE HCL 100 MG TAB PO SCH (18:00)
[2021-08-24] MEDS ORDERED: METOPROLOL TARTRATE 25 MG TAB PO SCH (18:00)
[2021-08-24] MEDS: POT PHOSPHATE MONOBASIC W/ SOD TAB PO SCH ×3 (18:04→22:32)
[2021-08-24] MEDS ORDERED: ACETAMINOPHEN 1000 MG/100 ML IV IV PRN (22:51)
[2021-08-24] MEDS: ACETAMINOPHEN 1,000 MG/100 ML VIAL IV PRN (23:24)
[2021-08-25] MEDS: POT PHOSPHATE MONOBASIC W/ SOD TAB PO SCH (01:04)
[2021-08-25] MEDS: TUBE FEEDING WATER FLUSH GT SCH ×3 (01:16→10:29)
[2021-08-25] MEDS: ATROPINE SULFATE 1% OP SOLN 5 ML BTL SL PRN (01:17)
[2021-08-25] MEDS ORDERED: METOPROLOL TARTRATE 1 MG/ML VIAL IV STA ×2 (02:19→08:24)
[2021-08-25] MEDS ORDERED: dilTIAZem HCl 5 MG/ML 5 ML VIAL IV STA ×2 (02:37→05:07)
[2021-08-25] MEDS ORDERED: PIPERACILL/TAZOBAC CONSULT ACTIVE PRN (05:01)
[2021-08-25] MEDS ORDERED: SODIUM CHLORIDE 0.9% 500 ML IV SCH (05:15)
[2021-08-25] MEDS ORDERED: PIPERACILLIN/TAZOBACTAM 3.375 GM in DEXTROSE 5% 100 ML IV ONE (05:30)
[2021-08-25] MEDS ORDERED: DOXYCYCLINE HYCLATE 100 MG in DEXTROSE 5% 100 ML IV SCH (06:00)
[2021-08-25 06:05] LABS: Appearance Urine Turbid (Clear); Bilirubin Urine Negative (Negative); Blood Urine 3+ (Negative); Color Urine Dark Yellow; Epithelial Cell Urine Auto >30 /lpf (0-5); Glucose Urine UA Negative (Negative); Ketones Urine Trace (Negative); Leukocyte Esterase Urine Negative (Negative); Nitrite Urine Negative (Negative); Protein Urine 2+ (Negative); Specific Gravity Urine 1.026 (1.000-1.030); Urobilinogen Urine Negative (Negative); WBC Urine Automated >30 /hpf (0-5)
[2021-08-25 06:27] LABS: Bacteria Urine Automated 2+ (Negative); RBC Urine Automated >30 /hpf (0-4)
[2021-08-25 06:29] LABS: Granular Casts Urine 20-30 /lpf (0)
[2021-08-25 06:39] LABS: INR 2.3 (0.9-1.1); Prothrombin Time 21.9 Seconds (9.0-12.0)
[2021-08-25 06:43] LABS: Hematocrit (blood only) 37.6 % (42-52); Hemoglobin 11.1 g/dL (14.0-18.0); Mean Corpuscular Hemoglobin 32.8 pg (25-34); Mean Corpuscular Hgb Conc 29.5 g/dL (32-36); Mean Corpuscular Volume 111.2 fL (80-100); Mean Platelet Volume 10.7 fL (7.4-10.4); Platelet Count 159 K/uL (130-400); RDW Coefficient of Variation 16.2 % (11.5-14.5); Red Blood Count 3.38 M/uL (4.7-6.1); White Blood Count 14.14 K/uL (4.8-10.8)
[2021-08-25 07:20] LABS: Folate (Folic Acid) > 22.30 ng/ml (>5.38)
[2021-08-25 07:21] LABS: Vitamin B12 1318 pg/ml (211-911)
[2021-08-25 07:27] LABS: BUN Creatinine Ratio 21.8 (10-20); Calcium 8.8 mg/dl (8.5-10.1); Creatinine Clr Calc Pharmacy 15.9 ml/min; Est GFR (African American) 21.7 ml/min; Est GFR (Non-African American) 18.7 ml/min; Potassium 3.7 mmol/L (3.5-5.1)
[2021-08-25] MEDS ORDERED: DEXTROSE 5% 500 ML IV SCH (08:00)
[2021-08-25] MEDS ORDERED: STAT IV Infusion **Titration per Protocol STA ×2 (08:23→11:59)
[2021-08-25] MEDS ORDERED: dilTIAZem HCL 125 MG in DEXTROSE 5% 100 ML IV SCH (08:30)
[2021-08-25] MEDS ORDERED: METOPROLOL TARTRATE 1 MG/ML VIAL IV PRN (08:41)
[2021-08-25] MEDS ORDERED: PANTOprazole 40 MG in SYRINGE 0 ML IV SCH (09:00)
--- NOTE | 2021-08-25 09:12 | Communication Note ---
Date of Service: August 25, 2021 GI service notified of brown/red color noted in residuals. Discussed with nursing staff. H/H 11.1/37.6. Patient's sodium is unfortunately higher today t conti yesterday at 157. He is saturating 96% of 3L of O2. HR 160. BP 101/62. At this point given the significant medical comorbidities, I would advise conservative care with IV Protonix 40 mg BID. Monitor H/H & can resume tube feeds. Continue to monitor for further bleeding. Of note, per nursing it sounds as though the family has expressed that they wish to withdraw care. Agree with Willa Berry, PAC as above Will sign off at this time Thank you for allowing us to care for this patient, if you have any further questions, please do not hesitate to contact us.
[2021-08-25] MEDS: LACTULOSE SYRUP 30 GM/45 ML UDP PO SCH (09:18)
[2021-08-25] MEDS: rifAXIMin 550 MG TABLET PO SCH (09:18)
[2021-08-25] MEDS: SACCHAROMYCES BOULARDII 250 MG CAP PO SCH (09:18)
[2021-08-25] MEDS ORDERED: PIPERACILLIN/TAZOBACTAM 3.375 GM in DEXTROSE 5% 100 ML IV SCH ×2 (10:00→12:00)
[2021-08-25] MEDS: ACETAMINOPHEN 1,000 MG/100 ML VIAL IV PRN (10:27)
[2021-08-25] MEDS ORDERED: ONDANSETRON 4 MG OD TAB SL PRN (11:59)
[2021-08-25] MEDS ORDERED: ATROPINE SULFATE 1% OP SOLN 5 ML BTL SL PRN (11:59)
[2021-08-25] MEDS ORDERED: GLYCOPYRROLATE 0.2 MG/ML VIAL IV PRN (11:59)
[2021-08-25] MEDS ORDERED: HYDROmorphone INJ 0.5 MG/0.5 ML SYR IV PRN (11:59)
[2021-08-25] MEDS ORDERED: ACETAMINOPHEN 650 MG SUPP PR PRN (11:59)
[2021-08-25] MEDS ORDERED: LORazepam 2 MG/1 ML VIAL IV PRN (11:59)
[2021-08-25] MEDS ORDERED: BACLOFEN 10 MG TAB PO PRN (11:59)
[2021-08-25] MEDS ORDERED: ONDANSETRON INJ 2 MG/ML 2 ML VIAL IV PRN (11:59)
[2021-08-25] MEDS ORDERED: PROMETHAZINE HCL 12.5 MG in SODIUM CHLORIDE 0.9% 50 ML IV PRN (11:59)
[2021-08-25] MEDS ORDERED: LORazepam 0.5 MG TAB PO PRN (11:59)
[2021-08-25] MEDS ORDERED: METOPROLOL TARTRATE 1 MG/ML VIAL IV SCH (12:00)
[2021-08-25] MEDS ORDERED: HYDROmorphone/NSS 100 MG/100 ML BAG IV SCH (12:00)
--- NOTE | 2021-08-25 13:15 | Nephrology Progress Note ---
Date of Service August 25, 2021 Assessment & Plan Admission and Anticipated Discharge Date Admission Date: August 20, 2021 Subjective Patient before I saw the patient. Deleted the draft note. Subjective Review of Systems: Physical Exam Results & Data ([facility]) Vital Signs (Past 12 Hours) Vital Signs Temp Pulse Pulse Pulse Resp BP Pulse Ox 08/25/21 09:10 160 H 08/25/21 07:42 38.4 C H 135 H 20 101/62 96 08/25/21 05:05 145 H 105/64 08/25/21 03:18 37.9 C H 75 20 104/62 95 08/25/21 02:58 98 H 08/25/21 02:57 150 H 109/72 08/25/21 01:27 88 L 08/25/21 01:19 36.8 C 114 H
--- NOTE | 2021-08-25 14:24 | Death Pronouncement Note ---
Date of Service August 25, 2021 Pronouncement Note Admission Date August 20, 2021 Date and Time of Date of : 08/25/21 Time of : 12:25 Preliminary Cause of (1) Cirrhosis of liver: (2) Hypernatremia: (3) Acute worsening of stage 3 chronic kidney disease: (4) Acute on chronic heart failure with reduced ejection fraction and diastolic dysfunction: Summary Will follow up In Discharge summary. Additional Data Confirmation of : no pulse, no respirations, no heart sounds and pupils fixed and dilated Pronouncement Performed By: Attending Physician Family: at bedside Attending physician: Trent Freeman MD
--- NOTE | 2021-08-25 14:37 | Discharge Summary ---
Date of Service August 25, 2021 Admission HPI Per Admitting Provider This is an 89-year-old male who has significant past medical history of chronic HFpEF, chronic atrial fibrillation anticoagulated on warfarin, HTN, HLD, CKD stage III who presents to ED with daughter at bedside secondary to altered mental status and overall decline in functional x6 days. Of significance patient was seen by outpatient provider today. Son reported the patient has gained 18 pounds over the past 2 weeks. Approximately 1 week ago he was able to ambulate although, fill pillbox and was alert and oriented. Today he is unable to walk on own, is confused and is unaware of who his daughter is. He has been with his daughter for the past 18 months. He was seen 1 week prior in clinic secondary to increased fluid retention but was also noted to have a decrease in renal function. 1 week ago his furosemide was decreased from 20mg to 10 mg Monday through Monday. His creatinine in June 2021 was 1.5. It is since increased to 2.4 and 2.5. Per daughter at bedside he has been eating and drink ing okay. His baseline dry weight is the low 160s. History was obtained from daughter and she declines any known documented fevers. She also denies father complaining of chest pain, shortness of breath or cough. She has noticed increased abdominal girth as well as increased lower extremity edema. She feels he has had increased urinary urgency, but is unsure of specifics as he was able to ambulate by himself into the bathroom. He has had a significant decline from baseline. In ED patient is alert to self only. He is hemodynamically stable and afebrile. His lab work notable for significant elevation BUN/creatinine at 70 and 2.51, BNP 225, lipase 221. He had not been worked up for altered mental status while in ED. He did not receive any IV treatment in ED. Unable to obtain family and SH due to altered mental status. PMH obtained from outpatient [facility] records. Admission Exam Per Admitting Provider Constitutional: WD/WN,elderly M, vitals as above, NAD, lying in bed, A and O x 1 only, doesn't follow commands appropriately Head: Normocephalic, Atraumatic Eyes: PERRL, conjunctivae normal, anicteric sclerae ENMT: external ear and nose normal, oropharynx normal Neck: trachea midline, no thyromegaly normal visual inspection Respiratory: normal respiratory effort, lungs clear to auscultation, no wheeze, rales, rhonchi. Normal insp/exp effort, no accessory muscle use Cardiovascular: IRR/IRR, no murmur, b/l pretibial and pedal edema +2 Vessels: no JVD or carotid bruit Chest: normal inspection of chest Abdomen: distended abdomen, normal bowel sounds, soft, nontender, no hepatosplenomegaly Musculoskeletal: no cyanosis or clubbing,unable to perform MSK exam due to pt unable to follow command Skin: no rashes, warm and dry normal turgor Neurologic: PERRL, EOMI, accommodation nl, no face palsy, no dysarthria CN's II-XI intact grossly Psychiatric: A+Ox1 only, euthymic affect : deferred Principal Diagnosis Cirrhosis of liver Hypernatremia Acute on chronic kidney disease, worsening Acute on chronic heart failure with reduced ejection fraction A. fib with RVR Discharge Exam Not arousable to verbal and tactile stimuli Pupils fixed and dilated Heart sounds not appreciated Lung sounds not appreciated No pulse appreciated No corneal reflex appreciated Discharge Data Allergies Allergy/AdvReac Type Severity Reaction Status Date / Time amlodipine Allergy Unknown Unknown Verified 09/08/20 20:15 lisinopril AdvReac Mild Cough Verified 09/08/20 20:15 Consultations 08/20/21 15:19 ED Decision to Admit Stat 08/20/21 16:02 Consult Nephrology Routine 08/20/21 16:02 Consult Cardiology Routine 08/20/21 16:04 ED Decision to Admit Stat 08/21/21 09:06 Consult Gastroenterology Routine 08/24/21 09:44 Consult Neurology Routine 08/25/21 11:59 Consult Palliative Care Routine Ordered Studies 08/20/21 16:03 CT head/brain wo con Stat 08/21/21 US abdomen limited Routine 08/21/21 09:36 US renal/blad retro comp Routine Hospital Course (1) Cirrhosis of liver: (2) Hypernatremia: (3) Acute worsening of stage 3 chronic kidney disease: (4) Acute on chronic heart failure with reduced ejection fraction and diastolic dysfunction: 89-year-old male with PMH of chronic HFpEF, chronic A. fib on warfarin, HTN, HLD, CKD stage III presented to the ED 08/20 secondary to altered mental status and overall decline in functional status since 6 days prior to arrival. He was being managed for the following while in hospital prior to institution of comfor care measures on 08/25/21: #. Liver cirrhosis, likely new diagnosis #. Hypernatremia #. Acute metabolic encephalopathy #. Hepatic encephalopathy #. Acute worsening of stage 3 chronic kidney disease: #. Acute on chronic heart failure with preserved ejection fraction (HFpEF): #. Chronic atrial fibrillation #. Afib RVR 08/23: CODE STATUS was changed to DNR/DNI after discussion with the family. 08/25: Family decided to withdraw care and comfort measures were instituted. Time of is 12:25 hrs. on 08/25/2021. Cause of being liver cirrhosis, hypernatremia, acute worsening of stage III chronic kidney disease, acute on chronic heart failure with preserved ejection fraction and A. fib RVR. Total Time Total Time Spent Total Time Spent (In Minutes): 40 Discharge Plan Discharge Items Patient Disposition: Other Date/Time: 08/25/21 12:25
== END 2021-08-25 14:35 | disposition expired | DRG 432 ==
LOC: EDBD → ED 11:39 → SUATTDRO 15:01 → 2N 15:01